=== PATIENT | male | born 1955 | race Caucasian/White ===

== ENCOUNTER 2020-03-02 13:02 | Outpatient (REF) | payer MEDICARE, SELFPAY | END 2020-03-02 13:03 | disposition home or self-care (01) | LOC: HO.LAB 13:02 | PROVIDERS: Visit Provider Physician Assistant | DX: Z20.828 Contact with and (suspected) exposure to other viral communicable diseases (principal) | CPT/HCPCS: 87635 ==

== ENCOUNTER 2020-06-22 14:11 | Outpatient (REF) | payer MEDICARE, SELFPAY ==
--- NOTE | ~2020-06-22 | US_ITS ---
EXAMINATION: US PELVIC, LIMITED/FOLLOWUP CLINICAL INFORMATION: Right lower quadrant/inguinal area pain. COMPARISON: None TECHNIQUE: Limited imaging through the right lower quadrant was performed. FINDINGS: There is a soft tissue hypoechoic area seen medial to the external iliac vessels suspicious of a small hernia. There is a small break in the fascia approximately 1.2 cm wide. US/US pelvic limited IMPRESSION: Suspect small right inguinal hernia with fat within.
== END 2020-06-22 14:12 | disposition home or self-care (01) ==
LOC: HO.US 14:11
PROVIDERS: Visit Provider Nurse Practitioner Family
DX: R19.09 Other intra-abdominal and pelvic swelling, mass and lump (principal)
CPT/HCPCS: 76857

== ENCOUNTER → 2020-07-14 14:54 | Outpatient (BNVA) | payer MEDICARE, SELFPAY | PROVIDERS: PCP Physician Assistant; Visit Provider Surgery | DX: K40.90 Unilateral inguinal hernia, without obstruction or gangrene, not specified as recurrent (principal); I48.21 Permanent atrial fibrillation | CPT/HCPCS: 99202 ==

== ENCOUNTER 2020-07-20 13:03 | Outpatient (REF) | payer MEDICARE, SELFPAY ==
[2020-07-20 14:01] LABS: MANUAL DIFF FLAG NO
[2020-07-20 14:07] LABS: Basophils Percent Auto 0.7 % (0-2); Eosinophils Absolute Auto 0.4 X10*3/uL (0.0-0.4); Eosinophils Percent Auto 6.1 % (0-4); Hematocrit 36.3 % (42-52); Hemoglobin 11.2 g/dl (14.0-18.0); Imm Gran Abs Auto 0.02 X10*3/uL (0.00-0.03); Imm Gran Pct Auto 0.3 % (0.0-0.4); Lymphocytes Absolute Auto 1.1 X10*3/uL (1.2-4.9); Lymphocytes Percent Auto 19.5 % (20-40); Mean Corpuscular HGB Conc 30.9 g/dl (31.0-36.0); Mean Corpuscular Hemoglobin 25.9 pg (27.0-33.0); Mean Platelet Volume 10.1 fL (9.4-12.4); Monocytes Absolute Auto 0.5 X10*3/uL (0.1-1.2); Monocytes Percent Auto 9.1 % (2-11); Neutrophils Absolute Auto 3.7 X10*3/uL (2.0-8.3); Neutrophils Percent Auto 64.3 % (45-73); Platelet Count 201 X10*3/uL (160-400); Red Blood Count 4.32 X10*6/uL (4.60-5.80); Red Cell Distribution Width 13.5 % (11.0-16.0); White Blood Count 5.7 X10*3/uL (4.8-10.8)
[2020-07-20 14:12] LABS: INTERNATIONAL NORM RATIO 2.4 (0.9-1.1); Prothrombin Time 29.3 SEC (10.8-13.0)
[2020-07-20 14:32] LABS: B Type Natriuretic Peptide 879 pg/mL (<100)
[2020-07-20 14:48] LABS: TSH reflex Free T4 0.84 uIU/mL (0.32-4.0)
[2020-07-20 15:15] LABS: Anion Gap 13 (12-20); Blood Urea Nitrogen 15 mg/dL (9-16); Calcium 9.3 mg/dL (8.4-10.2); Carbon Dioxide 31 mmol/L (22-29); Chloride 100 mmol/L (96-108); Estimated Glomerular Filt Rate 48; Glucose Random 82 mg/dL (60-115); Sodium 140 mmol/L (135-145)
== END 2020-07-20 13:04 | disposition home or self-care (01) ==
LOC: HO.LAB 13:03
PROVIDERS: Absent Provider Nurse Practitioner Family; PCP Physician Assistant; Visit Provider Physician Assistant
DX: I48.21 Permanent atrial fibrillation (principal); E03.9 Hypothyroidism, unspecified; R19.09 Other intra-abdominal and pelvic swelling, mass and lump; N18.30 Chronic kidney disease, stage 3 unspecified; Z95.810 Presence of automatic (implantable) cardiac defibrillator
CPT/HCPCS: 36415; 80048; 83880; 84443; 85025; 85610

== ENCOUNTER 2020-07-27 06:03 | Day surgery (SDC) | payer MEDICARE, SELFPAY ==
[2020-07-20 12:00] VITALS: BP 110/67; PULSE 81; RESP 20; O2SAT 97; BMI 24.0
--- NOTE | 2020-07-20 12:05 | P.CONAN_ITS ---
Documented by User: Nat Moore 07/26/20 08:55 HPI - Anesthesia Eval Consult details Narrative: 65yo M for Right Hernia Repair Inguinal Cardiac cleared at high risk. OK to hold coumadin [address]. [address] Henriquez for cardiomems reading if question of volume status perioperatively. Case reviewed with Dr Bri [facility] Active Problems Active Problems: All Active Problems (Updated 07/20/20 @ 11:41 by Sandy Dalal) Exposure to COVID-19 virus (Acute) Afib (Acute) CKD (chronic kidney disease) stage 3, GFR 30-59 ml/min (Acute) ICD (implantable cardioverter-defibrillator) in place (Acute) Hypothyroidism (Acute) MDD (major depressive disorder) (Acute) Hypotension (Acute) Inguinal hernia (Acute) CAD (coronary artery disease) (Acute) Right inguinal hernia (Acute) Groin lump (Acute) Past Medical History Medical History Arrhythmia Back pain CAD (coronary artery disease) CHF (congestive heart failure) Chronic renal insufficiency COPD (chronic obstructive pulmonary disease) Depression GERD (gastroesophageal reflux disease) Groin lump Hx of cardiac arrest Right inguinal hernia Status post insertion of pressure sensor into pulmonary artery Thyroid disease Family History Family History Father Brain cancer Kidney malignancy Mother No problems noted. Sister Ovarian cancer Family history of problems with anesthesia: No Surgical History Surgical History H/O colonoscopy History of cardiac defibrillator placement History of esophagogastroduodenoscopy (EGD) History of radiofrequency ablation procedure for cardiac arrhythmia History of Problems with Anesthesia: No Social History Social History Are you a primary day care home provider to a significant other at home: No Do you presently have visiting nurse or other home services: Yes ([facility] ([facility])) Smoking Status: Never smoker Use of substances other than those prescribed or required for medical reasons: No Have you been hit, kicked, punched, or otherwise hurt by someone within the past year? If so, by whom?: No Advance Directives Information Provided: No Recently lost weight without trying: No Narrative Narrative: No recent illness Denies CP/SOB. Activity limited, but denies symptoms when playing with grandson. Meds Allergies Allergy/AdvReac Type Severity Reaction Status Date / Time No Known Allergies Allergy Verified 07/19/20 09:14 Home Medications Medication Instructions Recorded Confirmed Last Taken Type albuterol sulfate 90 mcg/actuation 1 puff INHALATION QID PRN 03/25/20 07/20/20 Unknown History aerosol inhaler levothyroxine 75 mcg tablet 75 mcg PO DAILY 03/25/20 07/20/20 07/27/20 History lisinopril 2.5 mg tablet 2.5 mg PO DAILY 03/25/20 07/20/20 Unknown History fluticasone propion-salmeterol 2 puff INHALATION BID 07/20/20 07/20/20 Unknown History [Advair HFA] torsemide 1 tab PO BID 07/20/20 07/20/20 Unknown History Exam Exam Date and Time: July 20, 2020 1205 Narrative Narrative: Per cardiology note, nml coronaries on most recent cath . ICD Interrogation 04/2020 [employer] Evera Battery life ok No shocks delivered PA Cardiomems Implant 05/2020 RA 14 RV 58/10 PCWP 25 PA 59/24 EKG 03/2020 Afib with PV or Aberrently conducted complexes LAD Non specific IV conduction block Abnormal EKG When compared with 11/2019 no significant change was found Echo 11/2019 1. LV severely dilated. LV systolic function is severely reduced. LVEF 10-20%. Severe global hypokinesis with regional variation. 2.RV is mildly dilated. RV systolic function is mildly reduced. 3. LA is mildly dilated. RA is dilated. Mild apical tethering of both leaflets of the miltral valve. Mitral valve appears mildly thickened. Mild MR. Compared to 2014 LV appears more dilated and LVEF appears worse. Airway Mallampati Class: II TM Dist: >3cm Neck ROM: Full Loose/Missing/Broken Teeth: Yes (Poor dentition. Many missing. Denies any loose teeth.) Heart: RRR Lungs: CTAB Assessment and Plan Assessment Anesthesia Assessment: Anesthesia Plan Discussed (Discussed high risk, GA vs MAC) Documented by User: Brenna Díaz 07/27/20 08:01 [facility] Past Medical History Medical History Arrhythmia Back pain CAD (coronary artery disease) CHF (congestive heart failure) Chronic renal insufficiency COPD (chronic obstructive pulmonary disease) Depression GERD (gastroesophageal reflux disease) Groin lump Hx of cardiac arrest Right inguinal hernia Status post insertion of pressure sensor into pulmonary artery Thyroid disease Family History Family History Father Brain cancer Kidney malignancy Mother No problems noted. Sister Ovarian cancer Surgical History Surgical History H/O colonoscopy History of cardiac defibrillator placement History of esophagogastroduodenoscopy (EGD) History of radiofrequency ablation procedure for cardiac arrhythmia Social History Social History Are you a primary day care home provider to a significant other at home: No Do you presently have visiting nurse or other home services: Yes ([facility] ([facility])) Smoking Status: Never smoker Use of substances other than those prescribed or required for medical reasons: No Have you been hit, kicked, punched, or otherwise hurt by someone within the past year? If so, by whom?: No Advance Directives Information Provided: No Recently lost weight without trying: No Meds Allergies Allergy/AdvReac Type Severity Reaction Status Date / Time No Known Allergies Allergy Verified 07/19/20 09:14 Home Medications Medication Instructions Recorded Confirmed Last Taken Type albuterol sulfate 90 mcg/actuation 1 puff INHALATION QID PRN 03/25/20 07/20/20 Unknown History aerosol inhaler levothyroxine 75 mcg tablet 75 mcg PO DAILY 03/25/20 07/20/20 07/27/20 History lisinopril 2.5 mg tablet 2.5 mg PO DAILY 03/25/20 07/20/20 Unknown History fluticasone propion-salmeterol 2 puff INHALATION BID 07/20/20 07/20/20 Unknown History [Advair HFA] torsemide 1 tab PO BID 07/20/20 07/20/20 Unknown History Assessment and Plan Assessment Anesthesia Assessment: Anesthesia Plan Discussed and Chart Reviewed Final Anesthetic Review NPO: Yes ASA Class: III Final Preanesthetic Review: No Changes in Pt Med Stat, Meds/Allgs Chart Reviewed, Consent Obtained/Reviewed and Anes Risks/Benef Reviewed Patient Risk: High Procedure Risk: Low Assessment/Block/Sedation in SS: Assess/Block/Sedation-SS Anesthetic Plan Anesthetic Plan: GA Disposition: Standard PACU
[2020-07-27] VITALS (8 sets, daily range): BP systolic 104–124; BP diastolic 58–71; PULSE 78–94; RESP 11–18; TEMP 36.5–36.6; O2SAT 94–99
[2020-07-27] MEDS: Lactated Ringers 1,000 ML 20 ML IVCONT (06:36)
[2020-07-27 06:49] LABS: INTERNATIONAL NORM RATIO 1.3 (0.9-1.1); Prothrombin Time 15.5 SEC (10.8-13.0)
--- NOTE | 2020-07-27 07:23 | MHC.SHP ---
Pre-Procedural Eval Section B Chief Complaint: Right Inguinal hernia Allergies: Allergies Allergy/AdvReac Type Severity Reaction Status Date / Time No Known Allergies Allergy Verified 07/19/20 09:14 Plan I have reviewed the history and physical and performed a pertinent physical examination on my patient. No changes have occurred unless specified.
--- NOTE | 2020-07-27 08:22 | W.PM.OPN ---
Operative Note Operative Note Date of Service: 07/27/20 Narrative: Preop diagnosis: Right inguinal hernia Postop diagnosis: Right inguinal hernia, indirect Procedure: Repair of a right inguinal hernia with mesh and plug Surgeon: Colby Li MD assistant clinical nurse manager: KRISTIN Collins The patient is a 65-year-old male with a reducible mass in the right groin consistent with an inguinal hernia. He wanted to proceed with repair in view of symptoms. He understood the technique of the procedure as well as the risks, benefits, and alternatives. The patient was brought to the operating room and placed supine on the table under general anesthesia via laryngeal mask airway. The right groin was prepped and draped in the usual sterile fashion. A surgical time-out was done. The patient received cefazolin 2 g IV preoperatively. I infiltrated the planned line of incision on the right groin using lidocaine 1%. I made a short incision on the skin using blade # 15. This was carried down to full-thickness skin and subcutaneous fat down to the external oblique aponeurosis. I then defined the external ring. I made a short incision on the external oblique aponeurosis overlying the canal using blade 15 and this was extended inferomedially to connect with external ring. The inguinal canal was therefore entered. I applied hemostats on the edges of the divided external oblique aponeurosis. I bluntly dissected the underside of the aponeurosis to create a pocket for the mesh. I then proceeded to carefully dissect the spermatic cord and its contents using an index finger until I was able to pass a Aaron drain around this. This Aaron drain was used for retraction. I was able to identify the vas deferens and its accompanying vessels. A large sac was noted anteromedially. I dissected the sac off of the rest of the cord contents bluntly down to the internal ring. This was an indirect hernia therefore. I resisted the sac sequentially and applied a clamp across the base at the level of the internal ring. I placed a Dexon 2-0 suture ligature and divided the sac above the clamp. The sac was sent as specimen. I then reinforced this internal ring with a small-sized plug. The plug was secured with Prolene 2-0 sutures to the shelving edge of the inguinal and laterally and the internal oblique superiorly and medially using its inner leaves. I then reinforced the floor of the canal with a keyhole mesh. The tails of the mesh were passed around the cord at the level of the internal ring and were secured together with Prolene 2-0 sutures. The mesh was flattened at the floor of the canal. I secured this as well with Prolene 2-0 suture to the shelving edge of the inguinal ligament laterally, the internal oblique medially and superiorly and the pubic ramus inferomedially. I removed the Aaron drain. I irrigated and observed for hemostasis. I then closed the external oblique aponeurosis with a running Dexon 2-0 stitch to re-create the external ring. The subcutaneous layer was reapposed using Dexon 3-0 interrupted sutures. We made sure that there was good hemostasis prior to closure of the aponeurosis as well. The skin was closed with subcuticular running Dexon 4-0 sutures. The incision was then infiltrated with Marcaine 0.5% for postop analgesia. The procedure was completed. The patient tolerated procedure well with no complications noted. Initial and final counts of sponges and instruments were correct. Estimated blood loss was less than 5 cc. The patient was extubated without difficulty and transferred to the recovery room with stable by signs.
--- NOTE | 2020-07-27 08:29 | P.BOP_ITS ---
Brief Operative Note Date of Service: 07/27/20 Pre-op diagnosis: right inguinal hernia Post-op diagnosis: same (indirect) Procedure: repair of right inguinal hernia with mesh Implants: BARD PERFIX MESH, SMALL Surgeon: SKY NEUMANN MD Anesthesia: JEREMIEA Inspector Repairer: Steph Collins Estimated blood loss (mL): 5 Pathology: other (HERNIA SAC) Condition: stable Disposition: PACU
--- NOTE | 2020-07-27 09:48 | PC.NURSE ---
0940 MORE AWAKE ALERT CONVERSIVE PREP FOR DC MONITORS AND IVF DCD ASST OOB CH LOG ROLLS WELL AND MOVES STEADILIY TO CH, DRESSED SELF CALL DUMONT IN REACH PLAN TO AMB TO DC AREA
== END 2020-07-27 11:05 ==
LOC: HO.SSS 06:03
PROVIDERS: Nurse Practitioner; PCP Physician Assistant; Visit Provider Surgery
PROC: (CPT 49505; principal; 2020-07-27 07:30)
DX: K40.90 Unilateral inguinal hernia, without obstruction or gangrene, not specified as recurrent (principal); I48.21 Permanent atrial fibrillation; Z79.01 Long term (current) use of anticoagulants; I50.9 Heart failure, unspecified; J44.9 Chronic obstructive pulmonary disease, unspecified; K21.9 Gastro-esophageal reflux disease without esophagitis; Z95.810 Presence of automatic (implantable) cardiac defibrillator; Z79.51 Long term (current) use of inhaled steroids; Z79.899 Other long term (current) drug therapy
CPT/HCPCS: 49505; 36415; 85610; 88302; C1781; J0690; J1100; J1885; J2370; J2405; J3010

== ENCOUNTER → 2020-08-09 08:30 | Outpatient (BNVA) | payer MEDICARE, SELFPAY | PROVIDERS: PCP Physician Assistant; Visit Provider Surgery | DX: Z48.815 Encounter for surgical aftercare following surgery on the digestive system (principal); Z87.19 Personal history of other diseases of the digestive system | CPT/HCPCS: 99212 ==

== ENCOUNTER 2021-05-12 16:34 | Outpatient (REF) | payer MEDICARE, SELFPAY ==
[2021-05-12 17:27] LABS: Influenza A PCR NEGATIVE (Negative); Influenza B PCR NEGATIVE (Negative); Resp Syncy Virus RNA Qual PCR NEGATIVE (Negative); SARS COV2 PCR INHOUSE NEGATIVE (Negative)
== END 2021-05-12 16:35 | disposition home or self-care (01) ==
LOC: HO.LNP 16:34
PROVIDERS: Visit Provider Physician Assistant Medical
DX: Z20.822 Contact with and (suspected) exposure to COVID-19 (principal); J06.9 Acute upper respiratory infection, unspecified
CPT/HCPCS: 0241U

== ENCOUNTER 2022-03-06 10:08 | Outpatient (REF) | payer MEDICARE, SELFPAY ==
[2022-03-06 10:27] LABS: MANUAL DIFF FLAG NO
[2022-03-06 11:43] LABS: Basophils Absolute Auto 0.1 X10*3/uL (0.0-0.2); Eosinophils Absolute Auto 0.2 X10*3/uL (0.0-0.4); Eosinophils Percent Auto 2.5 % (0-4); Hematocrit 36.5 % (42.0-52.0); Hemoglobin 10.9 g/dl (14.0-18.0); Imm Gran Abs Auto 0.02 X10*3/uL (0.00-0.03); Imm Gran Pct Auto 0.3 % (0.0-0.4); Lymphocytes Absolute Auto 1.2 X10*3/uL (1.2-4.9); Mean Corpuscular HGB Conc 29.9 g/dl (31.0-36.0); Mean Corpuscular Hemoglobin 24.4 pg (27.0-33.0); Mean Corpuscular Volume 81.8 fL (80.0-98.0); Mean Platelet Volume 10.1 fL (9.4-12.4); Monocytes Absolute Auto 0.6 X10*3/uL (0.1-1.2); Monocytes Percent Auto 8.5 % (2-11); Neutrophils Absolute Auto 4.7 x10*3/uL (2.0-8.3); Neutrophils Percent Auto 69.7 % (45-73); Platelet Count 200 X10*3/uL (160-400); Red Blood Count 4.46 X10*6/uL (4.60-5.80); Red Cell Distribution Width 14.1 % (11.0-16.0); White Blood Count 6.7 X10*3/uL (4.8-10.8)
[2022-03-06 12:25] LABS: Alanine Aminotransferase 7 U/L (0-40); Albumin Level 4.4 g/dL (3.5-5.0); Alkaline Phosphatase 54 U/L (39-117); Anion Gap 16 (12-20); Aspartate Amino Transferase 26 U/L (5-37); Bilirubin Total 0.7 mg/dL (0.0-1.0); Blood Urea Nitrogen 14 mg/dL (9-16); Calcium 9.1 mg/dL (8.4-10.2); Carbon Dioxide 24 mmol/L (22-29); Chloride 101 mmol/L (96-108); Estimated Glomerular Filt Rate > 60; Glucose Random 70 mg/dL (60-115); Potassium 4.1 mmol/L (3.3-5.1); Sodium 137 mmol/L (135-145); Total Protein 7.3 g/dL (6.5-8.0)
[2022-03-08 12:14] LABS: NT-proBNP 2250 pg/mL
== END 2022-03-06 10:09 | disposition home or self-care (01) ==
LOC: HO.LAB 10:08
PROVIDERS: Visit Provider Nurse Practitioner Family
DX: I95.2 Hypotension due to drugs (principal); R42 Dizziness and giddiness; E03.9 Hypothyroidism, unspecified; I48.21 Permanent atrial fibrillation; I11.0 Hypertensive heart disease with heart failure; I50.9 Heart failure, unspecified
CPT/HCPCS: 36415; 80053; 83880; 85025

== ENCOUNTER 2022-09-27 13:00 | Outpatient (RCR) | payer MEDICARE, SELFPAY ==
[2022-09-14 09:10] VITALS: BP 116/60
--- NOTE | 2022-11-08 13:54 | MHC.PT.DC ---
[facility] [place] Office [place] Office [place] Office [address] Marisol Noriega [address] [phone] F: [phone] F: [phone] F: [phone] F: [phone] Physical Therapy Discharge Report Diagnosis: GAIT ABNORMALITY (KP) Date of Surgery: N/A Date of Evaluation: 09/14/22 Date of Discharge: 11/08/22 Treatments to Date: 4 Cancellations to Date: 0 No Shows to Date: 0 Discharge Status: Recommend MD Follow-up Discharge Summary: At last attended visit, note states 09/27 Pt reports an uneasy sensation with activity, head feels light , and he states acid reflex and chest pressure. When questioned pt reports he takes nitro but does not keep it with him. The sensations reported stop with rest. Call placed to primary MD who was not available, Dr BARBOUR's nsg staff recommended going to the ED. Pt was taken to the ED via WC . Pts vitals are as above. HR irregular. Pt has not returned for greater than 30 days and is DCed at this time. Electronically signed by: Estrellita Lares PT DPT Please sign and return to therapist. Thank you for your referral.
== END 2022-11-08 13:54 | disposition home or self-care (01) ==
LOC: HO.PT 13:00
PROVIDERS: PCP Internal Medicine; Visit Provider Nurse Practitioner Family
DX: R26.89 Other abnormalities of gait and mobility (principal); W19.XXXD Unspecified fall, subsequent encounter
CPT/HCPCS: 97110; 97162

== ENCOUNTER 2022-09-27 13:53 | Emergency (ER) | payer MEDICARE, SELFPAY ==
--- NOTE | ~2022-09-27 | CT_ITS ---
EXAMINATION: CT HEAD WITHOUT CONTRAST CLINICAL INFORMATION: Known subdural hematoma COMPARISON: None available. TECHNIQUE: Contiguous axial imaging was performed from the skull base to vertex without intravenous administration of contrast. This CT examination was performed using dose optimization techniques as appropriate, variously including the following: *Automated exposure control *Adjustment of mA and/or kV according to patient size (this includes techniques or standardized protocols for targeted exams where dose is matched to indication/reason for exam; i.e. extremities or head) *Use of iterative reconstruction technique DLP: 809 mGy-cm FINDINGS: There is no evidence of an extra-axial collection. There is no evidence of intra or extra-axial hemorrhage. The ventricles and extra-axial CSF spaces are prominent suggestive of mild generalized atrophy. There is nonspecific periventricular white matter disease. No mass, mass effect or infarct is seen. No skull fracture. Poor dentition and multiple periapical lucencies are questionable for dental caries/infection. Degenerative changes at the temporomandibular joints. CT/CT head/brain wo IV con IMPRESSION: No acute intracranial findings. Mild generalized atrophy and nonspecific periventricular white matter disease. No subdural hematoma or fluid collection seen.
[2022-09-27 14:18] VITALS: BP 126/70; PULSE 113; RESP 18; TEMP 36.2; O2SAT 100; BMI 22.2
--- NOTE | 2022-09-27 14:18 | ED_ITS ---
HPI - Dizziness General Chief Complaint: Arrhythmia/Palpitations Stated Complaint: heart irregularity Time Seen by Provider: 09/27/22 15:24 Related Data Home Medications Medication Instructions Recorded Confirmed albuterol sulfate 90 mcg/actuation 1 puff inhalation QID PRN wheezing 03/25/20 08/21/22 aerosol inhaler lisinopril 2.5 mg tablet 2.5 mg PO DAILY 03/25/20 08/21/22 fluticasone propionate 230 2 puff inhalation BID 07/20/20 08/21/22 mcg-salmeterol 21 mcg/actuation HFA inhaler (Advair HFA) torsemide 20 mg tablet 1 tab PO BID 07/20/20 08/21/22 carvedilol 25 mg tablet 12.5 mg PO BID 03/06/22 08/21/22 Previous Rx's Medication Instructions Recorded warfarin 2.5 mg tablet 5 mg PO DAILY 90 days #180 tabs 05/12/22 levothyroxine 75 mcg tablet 75 mcg PO DAILY 90 days #90 tabs 06/24/22 fluoxetine 20 mg capsule 20 mg PO DAILY #90 caps 09/20/22 Allergies Allergy/AdvReac Type Severity Reaction Status Date / Time No Known Allergies Allergy Verified 09/27/22 14:21 [facility] Past Medical History Medical History (Updated 09/27/22 @ 17:57 by Hugh Yao MD) Arrhythmia Back pain CAD (coronary artery disease) Cervicogenic headache CHF (congestive heart failure) Chronic renal insufficiency COPD (chronic obstructive pulmonary disease) Depression GERD (gastroesophageal reflux disease) Groin lump Hx of cardiac arrest Poor balance Right inguinal hernia Status post insertion of pressure sensor into pulmonary artery Subdural fluid collection Thyroid disease Surgical History H/O colonoscopy History of cardiac defibrillator placement History of esophagogastroduodenoscopy (EGD) History of radiofrequency ablation procedure for cardiac arrhythmia Family History Family History (Updated 08/21/22 @ 08:06 by Xena Martel CMA) Father Brain cancer Kidney malignancy Mother No problems noted. Sister Ovarian cancer Social History Social History Housing: House Are you a primary insurance healthcare consultant to a significant other at home: No Do you presently have visiting nurse or other home services: Yes ([facility] Alcohol intake: never Patient Tobacco Use Status: Never used Tobacco Smoked in Last 30 Days: No e-Cigarette/Vaping Use: Never Used Use of substances other than those prescribed or required for medical reasons: No Advance Directives: Yes Advance Directives Information Provided: No Advance Directives on File: No Current occupational status: retired Cognitive needs: No Hearing needs: No Vision needs: Yes Physical Exam Vital Signs: Vital Signs: Last Vital Signs Temp 97.2 F 09/27/22 14:18 Pulse 116 H 09/27/22 16:04 Resp 18 09/27/22 14:18 BP 106/74 09/27/22 16:04 Pulse Ox 100 09/27/22 14:18 O2 Del Method Room Air 09/27/22 14:18 BMI result Body Mass Index 22.2 Course Course Course Narrative: Patient is a 67 yo male with a PMH of afib (on Coumadin), CKD, CHF, vertigo, CAD presenting with dizziness at rehab and found to have irregular heart rates from 60s to 110s. He had had no chest pain and reports his dizziness has been going on for months. HR 110s in triage, irregularly irregular. BP stable. He states he took all of his meds this morning. Plan: EKG, orthostatic VS, lab workup Reevaluation(s) Reevaluation #1: See Dr. Yao's note for full evaluation and treatment. Medications Administered Discontinued Medications Generic Name Dose Route Start Last Admin Trade Name Freq PRN Reason Stop Dose Admin Carvedilol 12.5 mg 09/27/22 15:32 09/27/22 15:38 Carvedilol 12.5 Mg Tablet PO 09/27/22 15:33 12.5 mg ONCE ONE Administration Protocol Medical Decision Making Lab Data 09/27/22 14:33 09/27/22 14:33 Labs: Lab Results 09/27/22 09/27/22 09/27/22 Range/Units 14:33 14:33 14:33 WBC 6.5 (4.8-10.8) X10*3/uL RBC 4.10 L (4.60-5.80) X10*6/uL Hgb 9.4 L (14.0-18.0) g/dl Hct 32.6 L (42.0-52.0) % MCV 79.5 L (80.0-98.0) fL MCH 22.9 L (27.0-33.0) pg MCHC 28.8 L (31.0-36.0) g/dl RDW 15.3 (11.0-16.0) % Plt Count 172 (160-400) X10*3/uL MPV 10.0 (9.4-12.4) fL Immature Gran % (Auto) 0.3 (0.0-0.4) % Neut % (Auto) 75.9 H (45-73) % Lymph % (Auto) 15.5 L (20-40) % [place] % (Auto) 6.0 (2-11) % Eos % (Auto) 1.5 (0-4) % Baso % (Auto) 0.8 (0-2) % Lymph # (Auto) 1.0 L (1.2-4.9) X10*3/uL [place] # (Auto) 0.4 (0.1-1.2) X10*3/uL Eos # (Auto) 0.1 (0.0-0.4) X10*3/uL Baso # (Auto) 0.1 (0.0-0.2) X10*3/uL Abs Immat Gran (auto) 0.02 (0.00-0.03) X10*3/uL Absolute Neuts (auto) 4.9 (2.0-8.3) x10*3/uL Absolute Nucleated RBC 0.000 (0.0-0.012) X10*3/uL Nucleated RBC % (auto) 0.0 (0.0-0.2) /100WBC PT (10.0-13.1) SEC INR (0.9-1.1) APTT (26.0-36.4) SEC Sodium 138 (135-145) mmol/L Potassium 4.5 (3.3-5.1) mmol/L Chloride 104 (96-108) mmol/L Carbon Dioxide 27 (22-29) mmol/L Anion Gap 12 (12-20) BUN 15 (9-16) mg/dL Creatinine 1.14 (0.5-1.4) mg/dL Estim Creat Clear Calc 64.2 Estimated GFR > 60 Random Glucose 79 (60-115) mg/dL Calcium 9.1 (8.4-10.2) mg/dL Magnesium 1.7 (1.6-2.6) mg/dL Total Bilirubin 1.0 (0.0-1.0) mg/dL Direct Bilirubin 0.3 (0.0-0.5) mg/dL AST 32 (5-37) U/L ALT 14 (0-40) U/L Alkaline Phosphatase 60 (39-117) U/L Troponin I High Sens 15.3 (<3.5-35.0) ng/L Total Protein 6.8 (6.5-8.0) g/dL Albumin 4.1 (3.5-5.0) g/dL TSH (0.32-4.0) uIU/mL Free T4 (0.71-1.85) ng/dL 09/27/22 09/27/22 Range/Units 15:38 15:38 WBC (4.8-10.8) X10*3/uL RBC (4.60-5.80) X10*6/uL Hgb (14.0-18.0) g/dl Hct (42.0-52.0) % MCV (80.0-98.0) fL MCH (27.0-33.0) pg MCHC (31.0-36.0) g/dl RDW (11.0-16.0) % Plt Count (160-400) X10*3/uL MPV (9.4-12.4) fL Immature Gran % (Auto) (0.0-0.4) % Neut % (Auto) (45-73) % Lymph % (Auto) (20-40) % [place] % (Auto) (2-11) % Eos % (Auto) (0-4) % Baso % (Auto) (0-2) % Lymph # (Auto) (1.2-4.9) X10*3/uL [place] # (Auto) (0.1-1.2) X10*3/uL Eos # (Auto) (0.0-0.4) X10*3/uL Baso # (Auto) (0.0-0.2) X10*3/uL Abs Immat Gran (auto) (0.00-0.03) X10*3/uL Absolute Neuts (auto) (2.0-8.3) x10*3/uL Absolute Nucleated RBC (0.0-0.012) X10*3/uL Nucleated RBC % (auto) (0.0-0.2) /100WBC PT 30.6 H (10.0-13.1) SEC INR 2.6 H (0.9-1.1) APTT 42.5 H (26.0-36.4) SEC Sodium (135-145) mmol/L Potassium (3.3-5.1) mmol/L Chloride (96-108) mmol/L Carbon Dioxide (22-29) mmol/L Anion Gap (12-20) BUN (9-16) mg/dL Creatinine (0.5-1.4) mg/dL Estim Creat Clear Calc Estimated GFR Random Glucose (60-115) mg/dL Calcium (8.4-10.2) mg/dL Magnesium (1.6-2.6) mg/dL Total Bilirubin (0.0-1.0) mg/dL Direct Bilirubin (0.0-0.5) mg/dL AST (5-37) U/L ALT (0-40) U/L Alkaline Phosphatase (39-117) U/L Troponin I High Sens (<3.5-35.0) ng/L Total Protein (6.5-8.0) g/dL Albumin (3.5-5.0) g/dL TSH 5.68 H (0.32-4.0) uIU/mL Free T4 0.95 (0.71-1.85) ng/dL Discharge Plan Discharge Clinical Impression: Atrial fibrillation Patient Disposition: Home, Self-Care Instructions: A-fib (Atrial Fibrillation) (ED) Additional Instructions: Your workup in the emergency department was reassuring. Your heart rate was elevated secondary to atrial fibrillation which you have had chronically. We treated you with an extra dose of carvedilol which helped the heart rate. At home, take 2 tablets of carvedilol in the morning and 1 in the evening. You are safe to go back to physical therapy for in next session. Follow-up with your PCP or newspaper subscription solicitor for further recommendations Prescriptions: No Action warfarin 2.5 mg tablet 5 mg PO DAILY 90 Days Qty: 180 1RF Hold Instructions: Resume on 07/28/20. Rx Instructions: Patient taking 5 mg daily levothyroxine 75 mcg tablet 75 mcg PO DAILY 90 Days Qty: 90 1RF fluoxetine 20 mg capsule 20 mg PO DAILY Qty: 90 0RF torsemide 20 mg tablet 1 tab PO BID Advair HFA 230-21 mcg/actuation Hfa Aerosol Inhaler 2 puff INHALATION BID lisinopril 2.5 mg tablet 2.5 mg PO DAILY albuterol sulfate 90 mcg/actuation HFA aerosol inhaler 1 puff inhalation QID PRN (Reason: wheezing) carvedilol 25 mg tablet 12.5 mg PO BID
--- NOTE | 2022-09-27 14:27 | ECG_ITS ---
Test Reason : ARRYTHMIA Blood Pressure : / mmHG Vent. Rate : 106 BPM Atrial Rate : 000 BPM P-R Int : 000 ms QRS Dur : 148 ms QT Int : 356 ms P-R-T Axes : 000 -50 052 degrees QTc Int : 472 ms Atrial fibrillation with rapid ventricular response with premature ventricular or aberrantly conducted complexes Left axis deviation Non-specific intra-ventricular conduction block Minimal voltage criteria for LVH, may be normal variant ( [place] product ) Abnormal ECG No previous ECGs available Referred By: Prabha Buckley Electronically Signed By:Jose Coffey
[2022-09-27 14:52] LABS: MANUAL DIFF FLAG NO
[2022-09-27 14:54] LABS: Basophils Absolute Auto 0.1 X10*3/uL (0.0-0.2); Basophils Percent Auto 0.8 % (0-2); Eosinophils Absolute Auto 0.1 X10*3/uL (0.0-0.4); Eosinophils Percent Auto 1.5 % (0-4); Hematocrit 32.6 % (42.0-52.0); Hemoglobin 9.4 g/dl (14.0-18.0); Imm Gran Abs Auto 0.02 X10*3/uL (0.00-0.03); Imm Gran Pct Auto 0.3 % (0.0-0.4); Lymphocytes Percent Auto 15.5 % (20-40); Mean Corpuscular HGB Conc 28.8 g/dl (31.0-36.0); Mean Corpuscular Hemoglobin 22.9 pg (27.0-33.0); Mean Corpuscular Volume 79.5 fL (80.0-98.0); Monocytes Absolute Auto 0.4 X10*3/uL (0.1-1.2); Neutrophils Absolute Auto 4.9 x10*3/uL (2.0-8.3); Neutrophils Percent Auto 75.9 % (45-73); Platelet Count 172 X10*3/uL (160-400); Red Cell Distribution Width 15.3 % (11.0-16.0); White Blood Count 6.5 X10*3/uL (4.8-10.8)
[2022-09-27 15:11] LABS: Alanine Aminotransferase 14 U/L (0-40); Albumin Level 4.1 g/dL (3.5-5.0); Alkaline Phosphatase 60 U/L (39-117); Anion Gap 12 (12-20); Aspartate Amino Transferase 32 U/L (5-37); Bilirubin Direct 0.3 mg/dL (0.0-0.5); Blood Urea Nitrogen 15 mg/dL (9-16); Calcium 9.1 mg/dL (8.4-10.2); Carbon Dioxide 27 mmol/L (22-29); Chloride 104 mmol/L (96-108); Creatinine Clr Calc Pharmacy 64.2; Estimated Glomerular Filt Rate > 60; Glucose Random 79 mg/dL (60-115); Magnesium 1.7 mg/dL (1.6-2.6); Potassium 4.5 mmol/L (3.3-5.1); Sodium 138 mmol/L (135-145); Total Protein 6.8 g/dL (6.5-8.0)
[2022-09-27 15:20] LABS: Troponin-I High Sensitivity 15.3 ng/L (<3.5-35.0)
--- NOTE | 2022-09-27 15:33 | ED.GENADULT ---
HPI - General Adult General Chief complaint: Arrhythmia/Palpitations Stated complaint: heart irregularity Time Seen by Provider: 09/27/22 15:24 Source: patient History of Present Illness HPI narrative: Patient states he has been feeling dizzy since he fell and hit his head last month and suffered a subdural hematoma. He has been followed at [facility] for this. Today went to physical therapy and they found him to be tachycardic with an irregular rhythm. He has a history of atrial fibrillation for which he takes warfarin and carvedilol. He denies palpitations or dyspnea. He states he has feels dizzy which he describes as off balance sensation. He needs to hold onto things when he walks now. He lives at home with his typically. His has been hospitalized for the last few days. Related Data Home Medications Medication Instructions Recorded Confirmed albuterol sulfate 90 mcg/actuation 1 puff inhalation QID PRN wheezing 03/25/20 08/21/22 aerosol inhaler lisinopril 2.5 mg tablet 2.5 mg PO DAILY 03/25/20 08/21/22 fluticasone propionate 230 2 puff inhalation BID 07/20/20 08/21/22 mcg-salmeterol 21 mcg/actuation HFA inhaler (Advair HFA) torsemide 20 mg tablet 1 tab PO BID 07/20/20 08/21/22 carvedilol 25 mg tablet 12.5 mg PO BID 03/06/22 08/21/22 Previous Rx's Medication Instructions Recorded warfarin 2.5 mg tablet 5 mg PO DAILY 90 days #180 tabs 05/12/22 levothyroxine 75 mcg tablet 75 mcg PO DAILY 90 days #90 tabs 06/24/22 fluoxetine 20 mg capsule 20 mg PO DAILY #90 caps 09/20/22 Allergies Allergy/AdvReac Type Severity Reaction Status Date / Time No Known Allergies Allergy Verified 09/27/22 14:21 Review of Systems Constitutional: Comments: No fevers or chills Eyes: Comments: No new vision changes Cardiovascular: Comments: No chest pain or palpitations Respiratory: Comments: No dyspnea or cough Gastrointestinal: Comments: No nausea vomiting Musculoskeletal: Comments: No musculoskeletal complaints Neurologic: Comments: Dizziness as described PMF Past Medical History Medical History (Updated 09/27/22 @ 17:57 by Hugh Yao MD) Arrhythmia Back pain CAD (coronary artery disease) Cervicogenic headache CHF (congestive heart failure) Chronic renal insufficiency COPD (chronic obstructive pulmonary disease) Depression GERD (gastroesophageal reflux disease) Groin lump Hx of cardiac arrest Poor balance Right inguinal hernia Status post insertion of pressure sensor into pulmonary artery Subdural fluid collection Thyroid disease Surgical History H/O colonoscopy History of cardiac defibrillator placement History of esophagogastroduodenoscopy (EGD) History of radiofrequency ablation procedure for cardiac arrhythmia Family History Family History (Updated 08/21/22 @ 08:06 by Xena Martel CMA) Father Brain cancer Kidney malignancy Mother No problems noted. Sister Ovarian cancer Social History Social History Housing: House Are you a primary childbirth and infant care teacher to a significant other at home: No Do you presently have visiting nurse or other home services: Yes ([facility] ([facility] Alcohol intake: never Patient Tobacco Use Status: Never used Tobacco Smoked in Last 30 Days: No e-Cigarette/Vaping Use: Never Used Use of substances other than those prescribed or required for medical reasons: No Advance Directives: Yes Advance Directives Information Provided: No Advance Directives on File: No Current occupational status: retired Cognitive needs: No Hearing needs: No Vision needs: Yes Physical Exam ED Vital Signs: Vital Signs - 24 hr 09/27/22 14:18 09/27/22 16:03 09/27/22 16:03 Temperature 97.2 F Pulse Rate 113 H 100 105 H Respiratory Rate 18 Blood Pressure 126/70 106/41 L 105/76 Pulse Oximetry 100 Oxygen Delivery Method Room Air 09/27/22 16:04 Temperature Pulse Rate 116 H Respiratory Rate Blood Pressure 106/74 Pulse Oximetry Oxygen Delivery Method BMI result Body Mass Index 22.2 Const Other: Awake and alert. No acute distress. HENMT Other: Normocephalic atraumatic Resp Other: Clear and equal bilaterally without wheezes rales or rhonchi Cardio Other: Irregularly irregular at approximately 110 beats per minute GI Other: Soft nontender nondistended Skin Other: Warm pink and dry without rash or ecchymosis Neuro Other: Nonfocal Medications Administered Discontinued Medications Generic Name Dose Route Start Last Admin Trade Name Freq PRN Reason Stop Dose Admin Carvedilol 12.5 mg 09/27/22 15:32 09/27/22 15:38 Carvedilol 12.5 Mg Tablet PO 09/27/22 15:33 12.5 mg ONCE ONE Administration Protocol Medical Decision Making Medical Decision Making [facility] Narrative: Patient with recent dizziness although attributed to recent subdural hematoma. His a history of atrial fibrillation and thinks he is typically in that rhythm and not normal sinus rhythm. He was found to be moderately tachycardic when he went for physical therapy for his 1st appointment today so they sent to the emergency department. Given the above symptoms and findings, will repeat CT head to assess for potential expansion or recurrence of his subdural hematoma. Will treat with carvedilol for rate control. He is otherwise stable. Await INR and other labs. 17:54. CBC shows mild anemia without significant change from prior values. Chemistries are normal. Troponin is 15.3. TSH is 5.68 but his free T4 is normal range of 0.95. His atrial fibrillation is now at a rate in the 90s. His INR is in the therapeutic range at 2.6. Patient is comfortable. He is stable for discharge home with a final diagnosis of dizziness likely secondary to atrial fibrillation with RVR. Now controlled Lab Data 09/27/22 14:33 09/27/22 14:33 Labs: Lab Results 09/27/22 09/27/22 09/27/22 Range/Units 14:33 14:33 14:33 WBC 6.5 (4.8-10.8) X10*3/uL RBC 4.10 L (4.60-5.80) X10*6/uL Hgb 9.4 L (14.0-18.0) g/dl Hct 32.6 L (42.0-52.0) % MCV 79.5 L (80.0-98.0) fL MCH 22.9 L (27.0-33.0) pg MCHC 28.8 L (31.0-36.0) g/dl RDW 15.3 (11.0-16.0) % Plt Count 172 (160-400) X10*3/uL MPV 10.0 (9.4-12.4) fL Immature Gran % (Auto) 0.3 (0.0-0.4) % Neut % (Auto) 75.9 H (45-73) % Lymph % (Auto) 15.5 L (20-40) % [place] % (Auto) 6.0 (2-11) % Eos % (Auto) 1.5 (0-4) % Baso % (Auto) 0.8 (0-2) % Lymph # (Auto) 1.0 L (1.2-4.9) X10*3/uL [place] # (Auto) 0.4 (0.1-1.2) X10*3/uL Eos # (Auto) 0.1 (0.0-0.4) X10*3/uL Baso # (Auto) 0.1 (0.0-0.2) X10*3/uL Abs Immat Gran (auto) 0.02 (0.00-0.03) X10*3/uL Absolute Neuts (auto) 4.9 (2.0-8.3) x10*3/uL Absolute Nucleated RBC 0.000 (0.0-0.012) X10*3/uL Nucleated RBC % (auto) 0.0 (0.0-0.2) /100WBC PT (10.0-13.1) SEC INR (0.9-1.1) APTT (26.0-36.4) SEC Sodium 138 (135-145) mmol/L Potassium 4.5 (3.3-5.1) mmol/L Chloride 104 (96-108) mmol/L Carbon Dioxide 27 (22-29) mmol/L Anion Gap 12 (12-20) BUN 15 (9-16) mg/dL Creatinine 1.14 (0.5-1.4) mg/dL Estim Creat Clear Calc 64.2 Estimated GFR > 60 Random Glucose 79 (60-115) mg/dL Calcium 9.1 (8.4-10.2) mg/dL Magnesium 1.7 (1.6-2.6) mg/dL Total Bilirubin 1.0 (0.0-1.0) mg/dL Direct Bilirubin 0.3 (0.0-0.5) mg/dL AST 32 (5-37) U/L ALT 14 (0-40) U/L Alkaline Phosphatase 60 (39-117) U/L Troponin I High Sens 15.3 (<3.5-35.0) ng/L Total Protein 6.8 (6.5-8.0) g/dL Albumin 4.1 (3.5-5.0) g/dL TSH (0.32-4.0) uIU/mL Free T4 (0.71-1.85) ng/dL 09/27/22 09/27/22 Range/Units 15:38 15:38 WBC (4.8-10.8) X10*3/uL RBC (4.60-5.80) X10*6/uL Hgb (14.0-18.0) g/dl Hct (42.0-52.0) % MCV (80.0-98.0) fL MCH (27.0-33.0) pg MCHC (31.0-36.0) g/dl RDW (11.0-16.0) % Plt Count (160-400) X10*3/uL MPV (9.4-12.4) fL Immature Gran % (Auto) (0.0-0.4) % Neut % (Auto) (45-73) % Lymph % (Auto) (20-40) % [place] % (Auto) (2-11) % Eos % (Auto) (0-4) % Baso % (Auto) (0-2) % Lymph # (Auto) (1.2-4.9) X10*3/uL [place] # (Auto) (0.1-1.2) X10*3/uL Eos # (Auto) (0.0-0.4) X10*3/uL Baso # (Auto) (0.0-0.2) X10*3/uL Abs Immat Gran (auto) (0.00-0.03) X10*3/uL Absolute Neuts (auto) (2.0-8.3) x10*3/uL Absolute Nucleated RBC (0.0-0.012) X10*3/uL Nucleated RBC % (auto) (0.0-0.2) /100WBC PT 30.6 H (10.0-13.1) SEC INR 2.6 H (0.9-1.1) APTT 42.5 H (26.0-36.4) SEC Sodium (135-145) mmol/L Potassium (3.3-5.1) mmol/L Chloride (96-108) mmol/L Carbon Dioxide (22-29) mmol/L Anion Gap (12-20) BUN (9-16) mg/dL Creatinine (0.5-1.4) mg/dL Estim Creat Clear Calc Estimated GFR Random Glucose (60-115) mg/dL Calcium (8.4-10.2) mg/dL Magnesium (1.6-2.6) mg/dL Total Bilirubin (0.0-1.0) mg/dL Direct Bilirubin (0.0-0.5) mg/dL AST (5-37) U/L ALT (0-40) U/L Alkaline Phosphatase (39-117) U/L Troponin I High Sens (<3.5-35.0) ng/L Total Protein (6.5-8.0) g/dL Albumin (3.5-5.0) g/dL TSH 5.68 H (0.32-4.0) uIU/mL Free T4 0.95 (0.71-1.85) ng/dL Discharge Plan Discharge Clinical Impression: Atrial fibrillation Patient Disposition: Home, Self-Care Instructions: A-fib (Atrial Fibrillation) (ED) Additional Instructions: Your workup in the emergency department was reassuring. Your heart rate was elevated secondary to atrial fibrillation which you have had chronically. We treated you with an extra dose of carvedilol which helped the heart rate. At home, take 2 tablets of carvedilol in the morning and 1 in the evening. You are safe to go back to physical therapy for in next session. Follow-up with your PCP or toolman for further recommendations Prescriptions: No Action warfarin 2.5 mg tablet 5 mg PO DAILY 90 Days Qty: 180 1RF Hold Instructions: Resume on 07/28/20. Rx Instructions: Patient taking 5 mg daily levothyroxine 75 mcg tablet 75 mcg PO DAILY 90 Days Qty: 90 1RF fluoxetine 20 mg capsule 20 mg PO DAILY Qty: 90 0RF torsemide 20 mg tablet 1 tab PO BID Advair HFA 230-21 mcg/actuation Hfa Aerosol Inhaler 2 puff INHALATION BID lisinopril 2.5 mg tablet 2.5 mg PO DAILY albuterol sulfate 90 mcg/actuation HFA aerosol inhaler 1 puff inhalation QID PRN (Reason: wheezing) carvedilol 25 mg tablet 12.5 mg PO BID
[2022-09-27] MEDS: carvediloL 12.5 MG TABLET PO (15:38)
[2022-09-27 16:03] VITALS: BP 105/76; BP 106/41; PULSE 100; PULSE 105
[2022-09-27 16:04] VITALS: BP 106/74; PULSE 116
[2022-09-27 16:04] LABS: INTERNATIONAL NORM RATIO 2.6 (0.9-1.1); Prothrombin Time 30.6 SEC (10.0-13.1)
[2022-09-27 16:07] LABS: Partial Thromboplastin Time 42.5 SEC (26.0-36.4)
[2022-09-27 16:53] LABS: TSH reflex Free T4 5.68 uIU/mL (0.32-4.0)
--- NOTE | 2022-09-27 17:35 | PC.NURSE ---
pt prompted to provide urine sample
[2022-09-27 17:39] LABS: Free T4 (Free Thyroxine) 0.95 ng/dL (0.71-1.85)
== END 2022-09-27 18:19 | disposition home or self-care (01) ==
PROVIDERS: Physician Assistant; Emergency Provider Emergency Medicine; PCP Internal Medicine
DX: I49.9 Cardiac arrhythmia, unspecified (principal); I48.91 Unspecified atrial fibrillation; R42 Dizziness and giddiness; I25.10 Atherosclerotic heart disease of native coronary artery without angina pectoris; R00.0 Tachycardia, unspecified; Z79.899 Other long term (current) drug therapy
CPT/HCPCS: 36415; 70450; 80048; 80076; 83735; 84439; 84443; 84484; 85025; 85610; 85730; 93005; 99284

== ENCOUNTER → 2022-10-24 14:13 | Outpatient (BNVA) | payer MEDICARE, SELFPAY | PROVIDERS: PCP Internal Medicine; Visit Provider Psychiatry & Neurology Neurology | DX: G44.86 Cervicogenic headache (principal); G24.8 Other dystonia; R42 Dizziness and giddiness | CPT/HCPCS: 99202 ==

== ENCOUNTER 2022-11-17 10:19 | Outpatient (RCR) | payer MEDICARE, SELFPAY ==
[2022-11-17 11:03] VITALS: BP 131/64; PULSE 62
--- NOTE | 2022-11-17 13:20 | MHC.PT.EP ---
[facility] [place] Office [place] Office [place] Office [address] Marisol Noriega [address] [phone] F: [phone] F: [phone] F: [phone] F: [phone] Physical Therapy Plan of Care Date of Evaluation: Date of Surgery: Diagnosis: Cervigogenic headache, antecollis, other dystonia Assessment: Jose is a 67 yo male referred to PT for Cervicogenic headache, antecollis, other dystonia . Pt c/o dizziness with positional changes and rolling in bed, therefore session primarily focused on BPPV assessment. Assessed cervical/shoulder ROM/strength and tested pt for BPPV. He presented with intact saccades, smooth pursuit, visual tracking, negative head thrust and negative VBI. He was negative for BPPV in B sam pikes and B roll test. On cervical and shoulder exam he presented with impairments which include poor seated/standing posture, decreased neck ROM, severe limitation in cervical extension, weak mid/lower traps, thoracic kyphosis, impaired shoulder, and impaired shoulder strength. Functional limitations include dizziness with changing positions, dizziness rolling in bed and PETER. PT to address aforementioned impairments and functional limitations. PT to include pt postural education, scapular retractions, neck ROM exercises, shoulder strengthening, thoracic mobility, pt education, and HEP. Frequency and Duration: The patient will be seen 2x week for 4 weeks Short Term Goals: In 2 weeks... 1. Pt will become I with all HEP to assist in improving overall posture. 2. Pt will not have any dizziness with rolling, and supine <> sit (no BPPV and no cervicogenic dizziness) Senior Compensation Consultant Goals: In 4 weeks... 1. Pt will increase cervical extension by 50% to decrease cervical tissue tension and PETER Treatment Plan: Modalities to reduce pain, spasms and effusion. Manual therapy to restore motion and function. Therapeutic exercise to improve strength and flexibility. Neuromuscular re-education for posture and balance. Therapeutic activities to return to functional activities of daily living. Electronically signed by: Tricia Johnson PT DPT Please sign and return to therapist. Thank you for your referral.
--- NOTE | 2022-11-20 13:28 | MHC.PT.DC ---
[facility] [place] Office [place] Office [place] Office [address] Marisol Noriega [address] [phone] F: [phone] F: [phone] F: [phone] F: [phone] Physical Therapy Discharge Report Diagnosis: Cervigogenic headache, antecollis, other dystonia Date of Surgery: NA Date of Evaluation: 11/17/22 Date of Discharge: 11/20/22 Treatments to Date: 1 Cancellations to Date: No Shows to Date: Discharge Status: Patient Elected to Stop Discharge Summary: Jose called and d/c himself from PT after his evaluation. He did not provide any reason for d/c/ Electronically signed by: Tricia Johnson, PT DPT Please sign and return to therapist. Thank you for your referral.
== END 2022-11-20 13:28 | disposition home or self-care (01) ==
LOC: HO.PT 10:19
PROVIDERS: PCP Internal Medicine; Visit Provider Psychiatry & Neurology Neurology
DX: G44.86 Cervicogenic headache (principal); G24.8 Other dystonia
CPT/HCPCS: 97110; 97161; 97162

== ENCOUNTER 2023-02-06 10:25 | Outpatient (AMB) | payer MEDICARE, SELFPAY ==
--- NOTE | 2023-02-06 10:29 | MHC.OFFVIS ---
Intake Vital Signs 02/06/23 10:32 Weight 161 lb BP 118/64 Blood Pressure Location Rt brachial Position Sitting Pulse 82 Pulse Source Pulse Oximeter Pulse Oximetry (%) 99 Oxygen Delivery Method Room Air Intake Visit Reasons: 3m follow up Cervicogenic headache-lvm Intake Note: Pt presents today for fup headaches, states headaches are QOD Allergies No Known Allergies Allergy (Verified 02/06/23 10:35) Medication List - Last Reconciled 02/06/23 by Sidra Ramirez MD albuterol sulfate 90 mcg/actuation 1 puff inhalation QID PRN carvedilol 12.5 mg PO BID dapagliflozin propanediol (Farxiga) 10 mg PO DAILY fluoxetine 20 mg PO DAILY fluticasone propion-salmeterol 230-21 mcg/actuation (Advair HFA) 2 puffs inhalation BID levothyroxine 75 mcg PO DAILY 90 days lisinopril 2.5 mg PO DAILY meclizine 25 mg PO DAILY PRN 30 days metoprolol succinate ER 25 mg PO DAILY torsemide 1 tab PO BID warfarin 5 mg (2 x 2.5 mg) PO DAILY 90 days HPI HPI Comments History of Present Illness Details 67y/o male comes for follow up of vertigo, headaches and neck pain. He did vestibular therapy, PT for neck . He is not clear if it helped.The headaches are mild and mostly occipital and frontal. He does not take any medications for his headaches. He still ahs vertigo when he stands up from a sitting position . He bumped his head when he fell about few months ago and he startes having neck pain and headaches. [facility] Medical History Antecollis Poor balance Subdural fluid collection Cervicogenic headache 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 Sister Ovarian cancer Social History Household Members: Spouse Housing: Apartment Are you a primary day care worker to a significant other at home: No Do you presently have visiting nurse or other home services: Yes ([facility] ([facility])) Alcohol intake: never Patient Tobacco Use Status: Never used Tobacco e-Cigarette/Vaping Use: Never Used service: No Current occupational status: retired Cognitive needs: No Hearing needs: No Vision needs: No Review of Systems ENT Reports Normal hearing present Neuro Reports Normal hearing present Physical Exam Vital Signs: Last Vital Signs Pulse 82 02/06/23 10:32 BP 118/64 02/06/23 10:32 Pulse Ox 99 02/06/23 10:32 Oxygen Delivery Method Room Air 02/06/23 10:32 Const General: cooperative and comfortable Nutritional Appearance: average body habitus Orientation/consciousness: patient oriented x3 Eyes Pupils: Equal, round and reactive pupils present Neck Other: severe antecollis Neuro General: patient oriented x3, No gait normal, tone normal, moves all extremities and no focal motor deficits Cranial nerves: Yes CN's II-XII intact bilaterally, Yes Equal, round and reactive pupils present, Yes Bilaterally intact EOM present, Yes Nystagmus not present, Yes Normal facial strength present, Yes Midline tongue present and Yes Normal hearing present Cognition (Neuro): normal cognition Gait exam (Neuro): Other gait observations present (stooped small steps ) Motor exam (neuro): 5/5 motor strength present throughout and Normal motor muscle tone present throughout Coordination: [id number] test normal Assessment & Plan Assessment & Plan (1) Antecollis: Code(s): G24.8 - Other dystonia (2) Cervicogenic headache: Code(s): G44.86 - Cervicogenic headache (3) Vertigo: Code(s): R42 - Dizziness and giddiness Plan I will trial him on baclofen 5mg qhs continue neck exercises. Medications: New baclofen 5 mg PO BEDTIME 30 tabs 3RF Coding Level of Care Code Est Pt Level 4 (21586) Diagnoses Antecollis G24.8 Cervicogenic headache G44.86 Vertigo R42
[2023-02-06 10:32] VITALS: BP 118/64; PULSE 82; O2SAT 99
--- NOTE | 2023-02-06 10:51 | MHC.OFFVIS ---
Intake Vital Signs 02/06/23 10:32 Weight 161 lb BP 118/64 Blood Pressure Location Rt brachial Position Sitting Pulse 82 Pulse Source Pulse Oximeter Pulse Oximetry (%) 99 Oxygen Delivery Method Room Air Intake Visit Reasons: 3m follow up Cervicogenic headache-lvm Allergies No Known Allergies Allergy (Verified 02/06/23 10:35) Medication List - Last Reconciled 02/06/23 by Sidra Ramirez MD albuterol sulfate 90 mcg/actuation 1 puff inhalation QID PRN carvedilol 12.5 mg PO BID dapagliflozin propanediol (Farxiga) 10 mg PO DAILY fluoxetine 20 mg PO DAILY fluticasone propion-salmeterol 230-21 mcg/actuation (Advair HFA) 2 puffs inhalation BID levothyroxine 75 mcg PO DAILY 90 days lisinopril 2.5 mg PO DAILY meclizine 25 mg PO DAILY PRN 30 days metoprolol succinate ER 25 mg PO DAILY torsemide 1 tab PO BID warfarin 5 mg (2 x 2.5 mg) PO DAILY 90 days [facility] Medical History Antecollis Poor balance Subdural fluid collection Cervicogenic headache 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 Sister Ovarian cancer Social History Household Members: Spouse Housing: Apartment Are you a primary home health care worker to a significant other at home: No Do you presently have visiting nurse or other home services: Yes ([facility] Alcohol intake: never Patient Tobacco Use Status: Never used Tobacco e-Cigarette/Vaping Use: Never Used service: No Current occupational status: retired Cognitive needs: No Hearing needs: No Vision needs: No Physical Exam Vital Signs: Last Vital Signs Pulse 82 02/06/23 10:32 BP 118/64 02/06/23 10:32 Pulse Ox 99 02/06/23 10:32 Oxygen Delivery Method Room Air 02/06/23 10:32 Assessment & Plan Assessment & Plan (1) Antecollis: Code(s): G24.8 - Other dystonia (2) Cervicogenic headache: Code(s): G44.86 - Cervicogenic headache (3) Vertigo: Code(s): R42 - Dizziness and giddiness Medications: New baclofen 5 mg PO BEDTIME 30 tabs 3RF Coding Diagnoses Antecollis G24.8 Cervicogenic headache G44.86 Vertigo R42
== END 2023-02-06 10:52 | disposition home or self-care (01) ==
PROVIDERS: PCP Internal Medicine; Visit Provider Psychiatry & Neurology Neurology
DX: G24.8 Other dystonia (principal); G44.86 Cervicogenic headache; R42 Dizziness and giddiness
CPT/HCPCS: 99214

== ENCOUNTER → 2023-02-06 10:25 | Outpatient (BNVA) | payer MEDICARE, SELFPAY | PROVIDERS: PCP Internal Medicine; Visit Provider Psychiatry & Neurology Neurology | DX: G44.86 Cervicogenic headache (principal); G24.8 Other dystonia; R42 Dizziness and giddiness | CPT/HCPCS: 99212 ==

== ENCOUNTER 2023-02-07 13:46 | Outpatient (AMB) | payer MEDICARE, SELFPAY ==
--- NOTE | 2023-02-07 13:56 | A.OFFPC_ITS ---
Vital Signs 02/07/23 13:58 Height 5 ft 10 in Weight 72.575 kg BMI 23.0 BP 130/68 Blood Pressure Location Lt brachial Position Sitting Pulse 78 Pulse Source Pulse Oximeter Pulse Oximetry (%) 98 Oxygen Delivery Method Room Air Intake Visit Reasons: Requesting Referral to Kidney Specialist Allergies No Known Allergies Allergy (Verified 02/07/23 13:58) Tobacco use date assessed: 08/21/22 Fall risk assessment: 1 Fall in past year Last assessed Fall Risk: 02/07/23 Dental Screening Dental Screen Date: 02/07/23 Did you have a dental visit in the last 12 months?: No Did you have a dental problem in the last 6 months where you did not have access to dental care?: No Was dental information given to patient?: No HPI Requesting Referral to Kidney Specialist HPI Details 67-year-old with a history of dilated ca rdiomyopathy ICD(history of cardiac arrest), obstructive sleep apnea, atrial fibrillation and congestive heart failure coming in for follow-up. Last seen in August 2022. Review of the notes follows up with Neurology for the vertigo headaches and neck pain had vestibular therapy physical therapy question of helping. Headaches mild mostly occipital and frontal patient was given some muscle relaxant. Patient also has seen Nephrology January diagnosis of chronic kidney disease stage 2, patient was in the emergency room in October had some chest pains echocardiogram noticing severely dilated left ventricular function ejection fraction of 10-15% severe global hypokinesis patient did show abnormal myocardial perfusion imaging severely dilated left ventricular and severely depressed systolic function with distal inferior apical akinesis patient follows up with Heart failure Service on digoxin metoprolol SG LT due inhibitor stress test September 2020 nonischemic. . PAtient has hematuria and will be having a cystoscopy [facility] Medical History (Updated 02/07/23 @ 14:43 by Susan Dobbs MD) Antecollis Poor balance Subdural fluid collection Cervicogenic headache 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 Sister Ovarian cancer Social History Household Members: Spouse Housing: Apartment Are you a primary care assistant to a significant other at home: No Do you presently have visiting nurse or other home services: Yes ([facility] ([facility] Alcohol intake: never Patient Tobacco Use Status: Never used Tobacco e-Cigarette/Vaping Use: Never Used service: No Current occupational status: retired Cognitive needs: No Hearing needs: No Vision needs: No Questionnaire PHQ-9 Over the last 2 weeks, how often have you been bothered by any of the following problems? 1. Little interest or pleasure in doing things: not at all 2. Feeling down, depressed, or hopeless: not at all 3. Trouble falling or staying asleep, or sleeping too much: not at all 4. Feeling tired or having little energy: not at all 5. Poor appetite or overeating: not at all 6. Feeling bad about yourself - or that you are a failure or have let yourself or your family down: not at all 7. Trouble concentrating on things, such as reading the newspaper or watching television: not at all 8. Moving or speaking so slowly that other people could have noticed. Or the opposite - being so fidgety or restless that you have been moving around a lot more than usual: not at all 9. Thoughts that you would be better off or of hurting yourself in some way: not at all Total score: 0 Depression Screening Interpretation: Negative Source: Developed by Drs. Lukas Esquivel, Elizabeth Cortes, Severiano Feliciano and colleagues, with an educational yang from [employer]. Thrive Questionnaire Date Thrive assessed: 08/21/22 AUDIT C Alcohol Use Questionnaire (AUDIT-C) 1. How often do you have a drink containing alcohol?: Never 3. How often do you have six or more drinks on one occasion?: Never Total Score: 0 HODA-7 AMB Questionnaire HODA-7 Date HODA - 7 assessed: 08/21/22 Source: Developed by Drs. Lukas Esquivel, Elizabeth Cortes, Severiano Feliciano and colleagues, with an educational yang from [employer]. Physical exam (Primary Care) Vital Signs: Last Vital Signs Pulse 78 02/07/23 13:58 BP 130/68 02/07/23 13:58 Pulse Ox 98 02/07/23 13:58 Oxygen Delivery Method Room Air 02/07/23 13:58 BMI result Body Mass Index 23.0 Tobacco/Smoking Status: Tobacco use Status Tobacco use date assessed 08/21/22 02/07/23 13:58 Patient Tobacco Use Status Never used Tobacco 02/07/23 13:58 e-Cigarette/Vaping Use Never Used 02/07/23 13:58 PHQ-9: PHQ-9 Score PHQ-9: Total score 0 02/07/23 14:43 Depression Screening Interpretation: Negative Thrive Assessment: Date of Thrive Assessment Date Thrive assessed 08/21/22 02/07/23 13:58 Const General: alert; No acute distress Eyes Conjunctivae: conjunctivae normal Resp Auscultation: clear to auscultation bilaterally Cardio Other: Irregular rate and rhythm GI Inspection: Yes normal to inspection Extrem General: Yes normal to inspection and No edema Immunizations pneumoc 20-kay conj-dip cr(PF) 0.5 mL IM syringe Performing Provider: Susan Dobbs MD Performing Location: [facility] Administered by: Xena Martel CMA on 02/07/23 14:50 Dose Route Admin Location Dispensed Lot Number Expiration Date NDC [place] 0.5 mL IM Left Deltoid 0.5 mL [id number] 02/12/24 Nutrinsic/Lysosomal Therapeutics VIS Given Date VIS Provided VIS Publication Date 02/07/23 Single Vaccine 21 Eligibility Eligibility Date Funding Source Not VFC Eligible 02/07/23 Private Assessment and Plan Assessment & Plan (1) CHF (congestive heart failure): Comment: Class 3 hospitalized 11/2019 reduced ejection fraction Code(s): I50.9 - Heart failure, unspecified Plan: Continue with diuretics, weigh daily continue with digoxin, continue with carvedilol, Farxiga. (2) ICD (implantable cardioverter-defibrillator) in place: Code(s): Z95.810 - Presence of automatic (implantable) cardiac defibrillator Plan: Continue to follow-up with cardiology (3) Hypothyroidism: Code(s): E03.9 - Hypothyroidism, unspecified Qualifiers: Hypothyroidism type: unspecified Qualified Code(s): E03.9 - Hypothyroidism, unspecified Plan: Continue with thyroid medication (4) CAD (coronary artery disease): Code(s): I25.10 - Atherosclerotic heart disease of [place] coronary artery without angina pectoris Plan: Control the cholesterol, weight, blood pressure (5) Anemia: Code(s): D64.9 - Anemia, unspecified Plan: Continue to monitor (6) Dilated cardiomyopathy: Code(s): I42.0 - Dilated cardiomyopathy Plan: Continue with cardiology follow-up placed on metoprolol, Farxiga (7) Afib: Code(s): I48.91 - Unspecified atrial fibrillation Qualifiers: Atrial fibrillation type: permanent Qualified Code(s): I48.21 - Permanent atrial fibrillation Plan: Continue with anticoagulation. (8) Hematuria: Code(s): R31.9 - Hematuria, unspecified Plan: Patient wants a referral to urology for planned cystoscopy(I do not have any details) Orders: Orders Pneumococcal 20 Immunization Today Z23 - Encounter for immunization Referrals Urology Referral R31.9 - Hematuria, unspecified Coding Level of Care Code Est Pt Level 4 (97584) Diagnoses CHF (congestive heart failure) I50.9 ICD (implantable cardioverter-defibrillator) in place Z95.810 Hypothyroidism, unspecified type E03.9 Hypothyroidism type: unspecified CAD (coronary artery disease) I25.10 Anemia D64.9 Dilated cardiomyopathy I42.0 Permanent atrial fibrillation I48.21 Atrial fibrillation type: permanent Hematuria R31.9
[2023-02-07 13:58] VITALS: BP 130/68; PULSE 78; O2SAT 98; BMI 23.0
== END 2023-02-07 15:59 | disposition home or self-care (01) ==
PROVIDERS: PCP Internal Medicine; Visit Provider Internal Medicine
DX: I50.9 Heart failure, unspecified (principal); I42.0 Dilated cardiomyopathy; I48.21 Permanent atrial fibrillation; Z23 Encounter for immunization; Z95.810 Presence of automatic (implantable) cardiac defibrillator; E03.9 Hypothyroidism, unspecified; I25.10 Atherosclerotic heart disease of native coronary artery without angina pectoris; D64.9 Anemia, unspecified; R31.9 Hematuria, unspecified
CPT/HCPCS: 90471; 90677; 99214

== ENCOUNTER 2023-04-12 15:42 | Emergency (ER) | payer MEDICARE, SELFPAY ==
--- NOTE | ~2023-04-12 | XR_ITS ---
EXAMINATION: XR CHEST CLINICAL INFORMATION: Shortness of breath COMPARISON: None available. TECHNIQUE: 2 views of the chest were obtained. FINDINGS: There is mild cardiac enlargement. No evidence of CHF. A left chest wall dual-lead pacer/defibrillator is present. CardioMEMS device is present in the left pulmonary artery. No infiltrates, effusions or lung masses are seen. XR/XR chest 2V IMPRESSION: Mild cardiomegaly. No acute intrathoracic disease.
[2023-04-12 15:45] VITALS: BP 112/76; PULSE 89; RESP 17; TEMP 36.7; O2SAT 100; BMI 23.8
--- NOTE | 2023-04-12 15:48 | ED.GENADULT ---
HPI - General Adult General Chief complaint: General Medical Stated complaint: sob Time Seen by Provider: 04/12/23 22:42 Source: patient, RN notes reviewed and old records reviewed Mode of arrival: ambulatory Limitations: no limitations History of Present Illness HPI narrative: 68-year-old male past medical history significant for cardiomyopathy, congestive heart failure, AFib, chronic kidney disease, AICD implantation, coronary artery disease presents for evaluation of shortness of breath Patient states that he is ?always short of breath. ? Patient states for the last few days he has had worsening shortness of breath that is worse when he walks or lies flat. He reports that he has to be very active but now has trouble walking to the bottom the driveway He denies any leg swelling He reports subjective fevers and chills And he denies any chest pain He reports increased anxiety and stress due to ?my of 34 years not doing well. She is admitted at [facility]. He states that he is supposed to have a big meeting with their kids at [facility] tomorrow about his Related Data Home Medications Medication Instructions Recorded Confirmed albuterol sulfate 90 mcg/actuation 1 puff inhalation QID PRN wheezing 03/25/20 02/06/23 aerosol inhaler lisinopril 2.5 mg tablet 2.5 mg PO DAILY 03/25/20 02/06/23 fluticasone propionate 230 2 puff inhalation BID 07/20/20 02/06/23 mcg-salmeterol 21 mcg/actuation HFA inhaler (Advair HFA) torsemide 20 mg tablet 1 tab PO BID 07/20/20 02/06/23 carvedilol 25 mg tablet 12.5 mg PO BID 03/06/22 02/06/23 dapagliflozin propanediol 10 mg 10 mg PO DAILY 10/24/22 02/06/23 tablet (Farxiga) metoprolol succinate 25 mg 25 mg PO DAILY 10/24/22 02/06/23 tablet,extended release 24 hr Previous Rx's Medication Instructions Recorded fluoxetine 20 mg capsule 20 mg PO DAILY #90 caps 09/20/22 levothyroxine 75 mcg tablet 75 mcg PO DAILY 90 days #90 tabs 10/05/22 meclizine 25 mg tablet 25 mg PO DAILY PRN motion sickness 10/05/22 30 days #30 tabs warfarin 2.5 mg tablet 5 mg (2 x 2.5 mg) PO DAILY 90 days 11/22/22 #180 tabs baclofen 5 mg tablet 5 mg PO BEDTIME #30 tabs 02/06/23 azithromycin 250 mg tablet See Rx Instructions PO .COMPLEX #6 04/12/23 tabs furosemide 40 mg tablet (Lasix) 40 mg PO DAILY #3 tabs 04/12/23 Allergies Allergy/AdvReac Type Severity Reaction Status Date / Time No Known Allergies Allergy Verified 02/07/23 13:58 Review of Systems Constitutional: Constitutional: Reports chills, Reports fever(s) and Reports weakness Eyes: Eyes: Denies exophthalmos ENT: Denies sore throat Cardiovascular: Cardiovascular: Denies chest pain, Denies chest pain with activity, Denies leg edema, Reports dyspnea and Reports dyspnea on exertion Respiratory: Respiratory: Denies cough, Denies pain with cough, Reports dyspnea and Reports dyspnea on exertion Gastrointestinal: Gastrointestinal: Denies abdominal pain, Denies nausea and Denies vomiting Musculoskeletal: Musculoskeletal: Denies back pain Integumentary/Breasts: Skin/Breast: Denies rash Neurologic: Reports weakness PMFSH Past Medical History Medical History (Updated 04/12/23 @ 23:[address]) Antecollis Poor balance Subdural fluid collection Cervicogenic headache Status post insertion of pressure sensor into pulmonary artery Back pain GERD (gastroesophageal reflux disease) Chronic renal insufficiency Depression CAD (coronary artery disease) Thyroid disease CHF (congestive heart failure) Arrhythmia COPD (chronic obstructive pulmonary disease) Hx of cardiac arrest Right inguinal hernia Groin lump Surgical History History of esophagogastroduodenoscopy (EGD) H/O colonoscopy History of radiofrequency ablation procedure for cardiac arrhythmia History of cardiac defibrillator placement Family History Family History Father Brain cancer Kidney malignancy Mother No problems noted. Sister Ovarian cancer Social History Social History Household Members: Spouse Housing: Apartment Are you a primary healthcare business analyst to a significant other at home: No Do you presently have visiting nurse or other home services: Yes ([facility] Alcohol intake: never Patient Tobacco Use Status: Never used Tobacco e-Cigarette/Vaping Use: Never Used Advance Directives: No Advance Directives Information Provided: No service: No Current occupational status: retired Cognitive needs: No Hearing needs: No Vision needs: No Physical Exam ED Vital Signs: Vital Signs - 24 hr 04/12/23 15:45 04/12/23 21:02 Temperature 98.0 F 96.6 F L Pulse Rate 89 81 Respiratory Rate 17 16 Blood Pressure 112/76 143/81 H Pulse Oximetry 100 98 Oxygen Delivery Method Room Air Room Air BMI result Body Mass Index 23.8 Const General: healthy appearing, comfortable, no acute distress, alert and awake Nutritional Appearance: well nourished Orientation/consciousness: patient oriented x3 HENMT Head: Yes normocephalic and Yes atraumatic Eyes Eyelids: Yes eyelids normal Conjunctivae: conjunctivae normal Sclerae: sclerae normal Corneas: corneas normal Pupils: Equal, round and reactive pupils present EOM: EOMs intact bilaterally Neck Neck: Yes full ROM Resp Effort & Inspection: normal respiratory effort, able to speak in complete sentences, no audible wheezes and not labored Auscultation: clear to auscultation bilaterally Cardio Other: No pitting edema Rate: regular rate Rhythm: regular rhythm Skin General skin exam: no rashes or lesions noted and elasticity normal Neuro General: patient oriented x3 Cranial nerves: Yes Equal, round and reactive pupils present and Yes Bilaterally intact EOM present Cognition (Neuro): normal cognition Extrem Other: Moving all extremities well without any obvious deformities Course Course Course Narrative: This is a rapid medical exam: Additional HPI, ROS, PE not included below will be deferred to primary provider. Patient is a 68-year-old male with history of CHF, afib, CKD, CAD presenting to the ED with complaint of fever, cough, abdominal pain and diarrhea since Sunday. Went to [facility] clinic prior to arrival and tested negative for flu and Covid, was referred to the ED for a chest x-ray. Plan: swab for covid, flu, rsv, labs, CXR, UA Medical Decision Making Medical Decision Making MDM Narrative: 68-year-old male with multiple comorbidities presents for evaluation of shortness of breath. His workup was largely unremarkable emergency department, he has no leukocytosis, his chemistries are without significant abnormalities. His BNP is elevated to 758 the he has a history of similar. Chest x-ray shows no pleural effusions. He patient has no chest pain. He is anticoagulated with Coumadin and his INR is therapeutic at 3.4 he is not hypoxic, tachycardic or tachypneic, making PE much less likely. Patient's symptoms are likely related to mild CHF and due to subjective fevers possibly some degree of viral syndrome Differential Diagnosis Differential Diagnoses: The differential diagnosis associated with the presentation includes Upper respiratory infection Congestive heart failure Pneumonia Bronchitis CAD less likely Admission/Observation Consideration of admission/observation: Escalation of care including admission/observation considered Lab Data MDM Lab Attestation statement: I reviewed the patient's lab results. As above 04/12/23 15:58 04/12/23 16:56 Labs: Lab Results 04/12/23 04/12/23 04/12/23 Range/Units 15:58 15:59 16:56 WBC 6.7 (4.8-10.8) X10*3/uL RBC 4.46 L (4.60-5.80) X10*6/uL Hgb 10.5 L (14.0-18.0) g/dl Hct 36.0 L (42.0-52.0) % MCV 80.7 (80.0-98.0) fL MCH 23.5 L (27.0-33.0) pg MCHC 29.2 L (31.0-36.0) g/dl RDW 15.1 (11.0-16.0) % Plt Count 183 (160-400) X10*3/uL MPV 9.7 (9.4-12.4) fL Immature Gran % (Auto) 0.3 (0.0-0.4) % Neut % (Auto) 68.4 (45-73) % Lymph % (Auto) 20.1 (20-40) % Carson % (Auto) 8.5 (2-11) % Eos % (Auto) 1.8 (0-4) % Baso % (Auto) 0.9 (0-2) % Lymph # (Auto) 1.4 (1.2-4.9) X10*3/uL Carson # (Auto) 0.6 (0.1-1.2) X10*3/uL Eos # (Auto) 0.1 (0.0-0.4) X10*3/uL Baso # (Auto) 0.1 (0.0-0.2) X10*3/uL Abs Immat Gran (auto) 0.02 (0.00-0.03) X10*3/uL Absolute Neuts (auto) 4.6 (2.0-8.3) x10*3/uL Absolute Nucleated RBC 0.000 (0.0-0.012) X10*3/uL Nucleated RBC % (auto) 0.0 (0.0-0.2) /100WBC PT 41.8 H (11.1-13.3) SEC INR 3.4 H (0.9-1.1) Sodium 138 (135-145) mmol/L Potassium 4.2 (3.3-5.1) mmol/L Chloride 106 (96-108) mmol/L Carbon Dioxide 28 (22-29) mmol/L Anion Gap 8 L (12-20) BUN 15 (9-16) mg/dL Creatinine 1.13 (0.5-1.4) mg/dL Estim Creat Clear Calc 66.3 Estimated GFR > 60 Random Glucose 82 (60-115) mg/dL Calcium 9.2 (8.4-10.2) mg/dL Total Bilirubin 0.4 (0.0-1.0) mg/dL AST 23 (5-37) U/L ALT 8 (0-40) U/L Alkaline Phosphatase 58 (39-117) U/L B-Natriuretic Peptide (<100) pg/mL Total Protein 7.5 (6.5-8.0) g/dL Albumin 4.1 (3.5-5.0) g/dL Influenza Type A (PCR) NEGATIVE (Negative) Influenza Type B (PCR) NEGATIVE (Negative) RSV RNA Qual (PCR) NEGATIVE (Negative) SARS-CoV-2 RNA (RT-PCR) NEGATIVE (Negative) 04/12/23 Range/Units 21:58 WBC (4.8-10.8) X10*3/uL RBC (4.60-5.80) X10*6/uL Hgb (14.0-18.0) g/dl Hct (42.0-52.0) % MCV (80.0-98.0) fL MCH (27.0-33.0) pg MCHC (31.0-36.0) g/dl RDW (11.0-16.0) % Plt Count (160-400) X10*3/uL MPV (9.4-12.4) fL Immature Gran % (Auto) (0.0-0.4) % Neut % (Auto) (45-73) % Lymph % (Auto) (20-40) % Carson % (Auto) (2-11) % Eos % (Auto) (0-4) % Baso % (Auto) (0-2) % Lymph # (Auto) (1.2-4.9) X10*3/uL Carson # (Auto) (0.1-1.2) X10*3/uL Eos # (Auto) (0.0-0.4) X10*3/uL Baso # (Auto) (0.0-0.2) X10*3/uL Abs Immat Gran (auto) (0.00-0.03) X10*3/uL Absolute Neuts (auto) (2.0-8.3) x10*3/uL Absolute Nucleated RBC (0.0-0.012) X10*3/uL Nucleated RBC % (auto) (0.0-0.2) /100WBC PT (11.1-13.3) SEC INR (0.9-1.1) Sodium (135-145) mmol/L Potassium (3.3-5.1) mmol/L Chloride (96-108) mmol/L Carbon Dioxide (22-29) mmol/L Anion Gap (12-20) BUN (9-16) mg/dL Creatinine (0.5-1.4) mg/dL Estim Creat Clear Calc Estimated GFR Random Glucose (60-115) mg/dL Calcium (8.4-10.2) mg/dL Total Bilirubin (0.0-1.0) mg/dL AST (5-37) U/L ALT (0-40) U/L Alkaline Phosphatase (39-117) U/L B-Natriuretic Peptide 758 H (<100) pg/mL Total Protein (6.5-8.0) g/dL Albumin (3.5-5.0) g/dL Influenza Type A (PCR) (Negative) Influenza Type B (PCR) (Negative) RSV RNA Qual (PCR) (Negative) SARS-CoV-2 RNA (RT-PCR) (Negative) Independent Interpretation I performed an independent interpretation of an: Plain X-Ray (No infiltrates) Radiology Impression Discussion of test interpretation with radiology: I have reviewed the radiologist's reading. (Mild cardiomegaly, no acute intrathoracic disease) Discharge Plan Discharge Clinical Impression: Acute dyspnea Patient Disposition: Home, Self-Care Instructions: Dyspnea (ED) Additional Instructions: Your symptoms are likely related to mild congestive heart failure as well as an upper respiratory infection. Take Lasix 40 mg daily for the next 3 days The take azithromycin as directed Follow-up with your primary doctor Return for new or worsening symptoms Prescriptions: New azithromycin 250 mg tablet See Rx Instructions .ROUTE .COMPLEX Qty: 6 0RF Rx Instructions: For 250 mg dose pack: take 500 mg today (day 1), then 250 mg for 4 days (days 2-5) furosemide [Lasix] 40 mg tablet 40 mg PO DAILY Qty: 3 0RF No Action fluoxetine 20 mg capsule 20 mg PO DAILY Qty: 90 0RF levothyroxine 75 mcg tablet 75 mcg PO DAILY 90 Days Qty: 90 1RF meclizine 25 mg tablet 25 mg PO DAILY PRN (Reason: motion sickness) 30 Days Qty: 30 3RF warfarin 2.5 mg tablet 5 mg PO DAILY 90 Days Qty: 180 1RF Hold Instructions: Resume on 07/28/20. Rx Instructions: Patient taking 5 mg daily torsemide 20 mg tablet 1 tab PO BID Advair HFA 230-21 mcg/actuation Hfa Aerosol Inhaler 2 puff INHALATION BID lisinopril 2.5 mg tablet 2.5 mg PO DAILY albuterol sulfate 90 mcg/actuation HFA aerosol inhaler 1 puff inhalation QID PRN (Reason: wheezing) carvedilol 25 mg tablet 12.5 mg PO BID metoprolol succinate 25 mg tablet extended release 24 hr 25 mg PO DAILY Farxiga 10 mg tablet 10 mg PO DAILY baclofen 5 mg tablet 5 mg PO BEDTIME Qty: 30 3RF
[2023-04-12 16:06] LABS: MANUAL DIFF FLAG NO
[2023-04-12 16:08] LABS: Basophils Absolute Auto 0.1 X10*3/uL (0.0-0.2); Basophils Percent Auto 0.9 % (0-2); Eosinophils Absolute Auto 0.1 X10*3/uL (0.0-0.4); Eosinophils Percent Auto 1.8 % (0-4); Hemoglobin 10.5 g/dl (14.0-18.0); Imm Gran Abs Auto 0.02 X10*3/uL (0.00-0.03); Imm Gran Pct Auto 0.3 % (0.0-0.4); Lymphocytes Absolute Auto 1.4 X10*3/uL (1.2-4.9); Lymphocytes Percent Auto 20.1 % (20-40); Mean Corpuscular HGB Conc 29.2 g/dl (31.0-36.0); Mean Corpuscular Hemoglobin 23.5 pg (27.0-33.0); Mean Corpuscular Volume 80.7 fL (80.0-98.0); Mean Platelet Volume 9.7 fL (9.4-12.4); Monocytes Absolute Auto 0.6 X10*3/uL (0.1-1.2); Monocytes Percent Auto 8.5 % (2-11); Neutrophils Absolute Auto 4.6 x10*3/uL (2.0-8.3); Neutrophils Percent Auto 68.4 % (45-73); Platelet Count 183 X10*3/uL (160-400); Red Blood Count 4.46 X10*6/uL (4.60-5.80); Red Cell Distribution Width 15.1 % (11.0-16.0); White Blood Count 6.7 X10*3/uL (4.8-10.8)
[2023-04-12 16:14] LABS: INTERNATIONAL NORM RATIO 3.4 (0.9-1.1); Prothrombin Time 41.8 SEC (11.1-13.3)
[2023-04-12 16:42] LABS: Influenza A PCR NEGATIVE (Negative); Influenza B PCR NEGATIVE (Negative); Resp Syncy Virus RNA Qual PCR NEGATIVE (Negative); SARS COV2 PCR INHOUSE NEGATIVE (Negative)
[2023-04-12 17:29] LABS: Alanine Aminotransferase 8 U/L (0-40); Albumin Level 4.1 g/dL (3.5-5.0); Alkaline Phosphatase 58 U/L (39-117); Anion Gap 8 (12-20); Aspartate Amino Transferase 23 U/L (5-37); Bilirubin Total 0.4 mg/dL (0.0-1.0); Blood Urea Nitrogen 15 mg/dL (9-16); Calcium 9.2 mg/dL (8.4-10.2); Carbon Dioxide 28 mmol/L (22-29); Chloride 106 mmol/L (96-108); Creatinine Clr Calc Pharmacy 66.3; Estimated Glomerular Filt Rate > 60; Glucose Random 82 mg/dL (60-115); Potassium 4.2 mmol/L (3.3-5.1); Sodium 138 mmol/L (135-145); Total Protein 7.5 g/dL (6.5-8.0)
[2023-04-12 21:02] VITALS: BP 143/81; PULSE 81; RESP 16; TEMP 35.9; O2SAT 98
[2023-04-12 22:30] LABS: B Type Natriuretic Peptide 758 pg/mL (<100)
== END 2023-04-12 23:41 | disposition home or self-care (01) ==
PROVIDERS: Registered Nurse Emergency; Emergency Provider Student in an Organized Health Care Education/Training Program; PCP Internal Medicine
DX: R06.02 Shortness of breath (principal); I50.9 Heart failure, unspecified; I48.91 Unspecified atrial fibrillation; F41.9 Anxiety disorder, unspecified; R50.9 Fever, unspecified; Z79.01 Long term (current) use of anticoagulants; Z20.822 Contact with and (suspected) exposure to COVID-19; Z20.828 Contact with and (suspected) exposure to other viral communicable diseases; Z79.899 Other long term (current) drug therapy; Z63.79 Other stressful life events affecting family and household
CPT/HCPCS: 0241U; 36415; 71046; 80053; 83880; 85025; 85610; 99282; 99283

== ENCOUNTER 2023-04-16 16:47 | Outpatient (AMB) | payer MEDICARE, SELFPAY ==
[2023-04-16 16:48] VITALS: BP 130/78; PULSE 103; O2SAT 98; BMI 23.2
--- NOTE | 2023-04-16 16:48 | MHC.PC.OV ---
Vital Signs 04/16/23 16:48 Height 5 ft 10 in Weight 161 lb 8 oz BMI 23.2 BP 130/78 Blood Pressure Location Lt brachial Position Sitting Pulse 103 H Pulse Source Pulse Oximeter Pulse Oximetry (%) 98 Oxygen Delivery Method Room Air Intake Visit Reasons: dyspnea Telephone Answering Service Operator Required: No Accompanied by: Self / Same As Patient Allergies No Known Allergies Allergy (Verified 04/16/23 17:43) Medication List - Last Reconciled 04/17/23 by Jose Christine MD albuterol sulfate 90 mcg/actuation 1 puff inhalation QID PRN azithromycin For 250 mg dose pack: take 500 mg today (day 1), then 250 mg for 4 days (days 2-5) baclofen 5 mg PO BEDTIME carvedilol 12.5 mg PO BID dapagliflozin propanediol (Farxiga) 10 mg PO DAILY fluoxetine 20 mg PO DAILY fluticasone propion-salmeterol 230-21 mcg/actuation (Advair HFA) 2 puffs inhalation BID levothyroxine 75 mcg PO DAILY 90 days lisinopril 2.5 mg PO DAILY meclizine 25 mg PO DAILY PRN 30 days metoprolol succinate ER 25 mg PO DAILY torsemide 20 mg PO BID warfarin 5 mg (2 x 2.5 mg) PO DAILY 90 days Tobacco use date assessed: 04/16/23 Fall risk assessment: 1 Fall in past year Last assessed Fall Risk: 04/16/23 Dental Screening Dental Screen Date: 04/16/23 Did you have a dental visit in the last 12 months?: No Did you have a dental problem in the last 6 months where you did not have access to dental care?: No Was dental information given to patient?: No HPI dyspnea HPI Details Patient comes in today for his HDF follow up visit He went to the ER a few days ago for increasing shortness of breath and some orthopnea Workup done in the ER, including labs and chest x-rays, revealed (+) mild anemia and findings suggestive of congestive heart failure Chest x-ray showed mild cardiomegaly with no acute infiltrates; respiratory panel came back negative for influenza, RSV and COVID He was started empirically on azithromycin and was also started on furosemide 40 mg daily for 3 days Patient states that his symptoms have improved significantly since and he is currently finishing up his prescription for Z-Freddie States that he still feels short of breath at times and is wondering if he should be on a diuretic long-term He denies any fever, headaches or dizziness Denies any exertional chest pains No nausea/vomiting, no abdominal pain No change in bowel habits noted [facility] Medical History (Updated 04/17/23 @ 04:43 by Jose Christine MD) Atrial fibrillation Antecollis Poor balance Subdural fluid collection Cervicogenic headache 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 Sister Ovarian cancer Social History Household Members: Spouse Housing: Apartment Are you a primary health care manager to a significant other at home: No Do you presently have visiting nurse or other home services: Yes ([facility] ([facility] Alcohol intake: never Patient Tobacco Use Status: Never used Tobacco e-Cigarette/Vaping Use: Never Used service: No Current occupational status: retired Cognitive needs: No Hearing needs: No Vision needs: No Questionnaire PHQ-9 Over the last 2 weeks, how often have you been bothered by any of the following problems? 1. Little interest or pleasure in doing things: not at all 2. Feeling down, depressed, or hopeless: not at all 3. Trouble falling or staying asleep, or sleeping too much: not at all 4. Feeling tired or having little energy: not at all 5. Poor appetite or overeating: not at all 6. Feeling bad about yourself - or that you are a failure or have let yourself or your family down: not at all 7. Trouble concentrating on things, such as reading the newspaper or watching television: not at all 8. Moving or speaking so slowly that other people could have noticed. Or the opposite - being so fidgety or restless that you have been moving around a lot more than usual: not at all 9. Thoughts that you would be better off or of hurting yourself in some way: not at all Total score: 0 Depression Screening Interpretation: Negative Depression Screening Done: Yes 20208 - PHQ-9 Billing: Yes Source: Developed by Drs. Lukas Esquivel, Elizabeth Cortes, Severiano Feliciano and colleagues, with an educational yang from [employer]. Thrive Questionnaire Date Thrive assessed: 04/16/23 I am a: Patient What is your living situation today?: I have a steady place to live Within the past 12 months, did the food you bought not last and you didn't have the money to get more?: Never true Within the past 12 months, did you worry whether your food would run out before you got money to buy more?: Never true Do you have trouble paying for medicines?: No Do you have trouble getting transportation to medical appointments?: No Do you have trouble paying your heating and electricity bill?: No Do you have trouble taking care of your child, family member or friend?: No Do you have trouble with day-to-day activities such as bathing, preparing meals, shopping, managing finances, etc.?: No Are you currently unemployed and looking for a job?: No Are you interested in more education?: No Please select the resources that you would like help with: None Currently or been in a relationship where the following occur: no concerns reported AUDIT C Alcohol Use Questionnaire (AUDIT-C) 1. How often do you have a drink containing alcohol?: Never 3. How often do you have six or more drinks on one occasion?: Never Total Score: 0 Score Reviewed/Action Taken: Yes HODA-7 AMB Questionnaire HODA-7 Date HODA - 7 assessed: 04/16/23 Feeling nervous, anxious, or on edge: 0 = Not at all Not being able to stop or control worryin = Not at all Worrying too much about different things: 0 = Not at all Trouble relaxin = Not at all Being so restless that it is hard to sit still: 0 = Not at all Becoming easily annoyed or irritable: 0 = Not at all Feeling afraid as if something awful might happen: 0 = Not at all Total HODA-7 score (0-4 normal; 5-9 mild; 10-14 moderate; 15-21 severe): 0 Source: Developed by Drs. Lukas Esquivel, Elizabeth Cortes, Severiano Feliciano and colleagues, with an educational yang from [employer]. Review of Systems Const Denies chills, Reports fatigue, Denies fever(s) and Denies headache(s) ENT Denies dysphagia, Denies dizziness, Denies otalgia, Denies headache(s), Denies neck pain, Denies odynophagia and Denies sore throat Card Denies chest pain, Denies palpitations and Reports dyspnea on exertion Resp Denies cough and Reports dyspnea on exertion GI Denies abdominal pain, Denies constipation, Denies dysphagia, Denies heartburn, Denies diarrhea, Denies nausea, Denies odynophagia and Denies vomiting Denies dysuria, Denies nocturia and Denies urinary frequency Musc Denies neck pain Neuro Denies dizziness and Denies headache(s) Endo Reports fatigue and Denies palpitations Physical exam (Primary Care) Vital Signs: Last Vital Signs Pulse 103 H 04/16/23 16:48 BP 130/78 04/16/23 16:48 Pulse Ox 98 04/16/23 16:48 Oxygen Delivery Method Room Air 04/16/23 16:48 BMI result Body Mass Index 23.2 Tobacco/Smoking Status: Tobacco use Status Tobacco use date assessed 04/16/23 04/16/23 16:50 Patient Tobacco Use Status Never used Tobacco 04/16/23 16:50 e-Cigarette/Vaping Use Never Used 04/16/23 16:50 PHQ-9: PHQ-9 Score PHQ-9: Total score 0 04/16/23 17:54 Depression Screening Interpretation: Negative Thrive Assessment: Date of Thrive Assessment Date Thrive assessed 04/16/23 04/16/23 16:50 Currently or been in a relationship where the following occur: no concerns reported Const General: no acute distress and alert Neck Neck: Yes no lymphadenopathy and Yes supple Resp Auscultation: no crackles, no rales, rhonchi throughout and no wheezes Cardio Rate: regular rate Rhythm: abnormal rhythm irregularly irregular Heart sounds: no murmurs GI Palpation (GI): Soft to palpation and nontender Auscultation: normal bowel sounds Extrem General: Yes no clubbing, cyanosis or edema Assessment and Plan Assessment & Plan (1) CHF (congestive heart failure): Comment: Class 3 hospitalized 11/2019 reduced ejection fraction Code(s): I50.9 - Heart failure, unspecified Qualifiers: Heart failure type: unspecified Heart failure chronicity: acute on chronic Qualified Code(s): I50.9 - Heart failure, unspecified Plan: Patient reports (+) significant improvement of his recent [place] with oral diuretics x 3 days; is wondering if he should be on the additional diuretic as maintenance therapy He is advised that he is presently already on a diuretic (Torsemide 20 mg BID) and as we currently do not have any information on the details of his cardiac condition, he should follow-up with his telecommunications cable jointer at [facility] regarding this - states that he has an upcoming appointment with [facility] later this month on 05/09/2023 and he will discuss this further with them As patient does not appear to have had any echocardiogram on record here over the years, will try sending him for an echocardiogram for further evaluation of his cardiac condition Reinforced fluid restriction Continue Carvedilol 12.5 mg BID, Farxiga 10 mg QD. Torsemide 20 mg BID and Lisinopril 2.5 mg QD (2) Atrial fibrillation: Code(s): I48.91 - Unspecified atrial fibrillation Qualifiers: Atrial fibrillation type: persistent (not longstanding) Qualified Code(s): I48.19 - Other persistent atrial fibrillation Plan: Patient is currently in atrial fibrillation but is rate-controlled Continue Metoprolol ER 25 mg QD Continue Coumadin 5 mg QD for thromboembolism prophylaxis (3) COPD exacerbation: Code(s): J44.1 - Chronic obstructive pulmonary disease with (acute) exacerbation Plan: His respiratory symptoms appear to be resolving and he is advised to finish up his Z-freddie Continue Advair HFA 230-21 mcg 2 inhalations BID and Albuterol HFA 1 to 2 inhalations QID PRN Plan Follow up with PCP in 1 month Orders: Orders CA echo transthoracic complete 04/16/23 I50.9 - Heart failure, unspecified, R06.09 - Other forms of dyspnea Coding Level of Care Code Est Pt Level 3 (94912) Diagnoses Acute on chronic congestive heart failure, unspecified heart failure type I50.9 Heart failure type: unspecified Heart failure chronicity: acute on chronic Persistent atrial fibrillation I48.19 Atrial fibrillation type: persistent (not longstanding) COPD exacerbation J44.1
== END 2023-04-16 17:56 | disposition home or self-care (01) ==
PROVIDERS: PCP Internal Medicine; Visit Provider Internal Medicine
DX: I50.9 Heart failure, unspecified (principal); I48.19 Other persistent atrial fibrillation; J44.1 Chronic obstructive pulmonary disease with (acute) exacerbation
CPT/HCPCS: 99213

== ENCOUNTER → 2023-05-02 07:59 | Outpatient (REF) | payer MEDICARE, SELFPAY ==
--- NOTE | 2023-05-02 08:01 | CA_ITS ---
Transthoracic Echocardiogram Patient (Last, First, Middle): Jose Thorpe, Gender: Male Date of : 1955 Age: 68 Procedure Date: 05/02/2023 Procedure Type: Transthoracic Echocardiogram Location: OP Height: 172.72 cm Weight: 72.58 kg BSA: 1.86 m2 Heart Rate: bpm BP: 140 / 70 mmHg Metal Fabricating Inspector: TO Referring MD: Jose Christine MD Community Health Counselor: Royal Dykes MD Symptoms: R06.09 - Other forms of dyspnea Study Quality: Fair ECG Rhythm: Atrial Fibrillation Conclusions: - 1. Moderately dilated left ventricle with severely reduced LV ejection fraction of 10-15% 2. Severely dilated left atrium 3. Moderate to severe mitral regurgitation 4. Moderate tricuspid regurgitation with upper limits of normal RV systolic pressure with mildly elevated right atrial pressures 5. No pericardial effusion Findings Procedure Information The study quality is limited by the patients inability to tolerate the test. Left Ventricle Moderately increased left ventricular cavity size. There is normal left ventricular wall thickness. The left ventricular systolic function is severely decreased. The visually estimated ejection fraction is between 10 15%. There is severe global hypokinesis. Diastolic function is indeterminate on the basis of available data. Right Ventricle Mildly increased right ventricular cavity size. There is an ICD wire seen in the right ventricle. Atria The left atrium is severely dilated. Interatrial shunt cannot be excluded. The right atrium is moderately dilated. A pacemaker wire is identified in the right atrium. Aortic Valve Normal aortic valve structure and function. There is no aortic valve stenosis. There is no aortic valve regurgitation. Mitral Valve There is mild anterior and posterior mitral leaflet thickening. There is moderate to severe mitral valve regurgitation. There is no mitral valve stenosis. Pulmonic Valve The pulmonic valve is likely normal. There is trace to mild pulmonic valve regurgitation. Tricuspid Valve Normal tricuspid valve structure. There is moderate tricuspid valve regurgitation. Mildly elevated right atrial pressure. There is no evidence of pulmonary hypertension. Great Vessels The pulmonary artery was not well visualized. There is no dilatation of the ascending aorta measuring 3.30 cm. Venous The inferior vena cava is moderately dilated and collapses greater than 50% with inspiration. Pericardium/Pleural There is no evidence of pericardial effusion. Prior Study Comparison No prior study available for comparison. Measurements 2D Linear Measurements IVSd: 1.22 0.6-0.9/0.6-1.0 cm LVIDd: 6.64 3.9-5.3/4.2-5.9 cm LVIDd Index: 3.57 2.4-3.2/2.2-3.1 cm/m2 LVIDs: 6.07 2.0-3.6 cm LVPWd: 0.86 0.7-1.1 cm LA Diam: 5.60 2.7-3.8/3.0-4.0 cm LAIDs Index: 3.01 1.5-2.3 cm/m2 LV Mass: 384.16 67-162/88-224 g LV Mass Index: 206.54 43-95/49-115 g/m2 LVOT Diam: 2.60 3.0+(-)1.3 cm 2D Systolic Function EF 4C: 11.80 >55% EF 2C: 13.40 >55% EF BiP: 12.60 >55% Mitral Valve MV Pk E: 0.94 MV Decel Time: 160.00 E'Lateral: 8.49 E'Medial: 5.33 E/E' Med: 17.70 E/E' Lat: 11.10 PHT: 47.00 MVA PHT: 4.68 Decel Mccurtain: 5.88 MR Vol - PW Dopp: 37.20 MR VTI: 1.24 MR ERO: 30.00 MR Alias Freddie: 0.40 MR RAD: 0.70 Aortic Valve AoV Pk Freddie: 0.93 AoV Mn Freddie: 0.70 AoV VTI: 0.15 AoV Pk Grad: 3.00 Aov Mn Grad: 2.00 BRITNEY Cont.VTI: 3.64 LVOT LVOT Pk Freddie: 0.59 LVOT Mn Freddie: 0.38 LVOT VTI: 0.10 LVOT Pk Grad: 1.00 LVOT Mn Grad: 1.00 LVOT Diam: 2.60 LVOT Area: 5.31 Diastolic Function MV Pk E: 0.94 E'Medial: 5.33 E/E' Med: 17.70 E' Laterial: 8.49 E/E' Lat: 11.10 Right Ventricle TAPSE (mm): 19.20 TVS' Freddie: 9.70 Tricuspid Valve TR Pk Freddie: 2.69 TR Pk Grad: 29.00 RA Press: 8.00 RVSP: 37.00 Great Vessels Aorta Sinus of Valsalva: 3.39 2.0-3.[address] Ridge: 2.49 1.7-3.4 cm Ao Asc: 3.30 2.1-3.4 cm Updated in Other Vendor System with Status of Final Royal Dykes MD electronically signed on 05/02/2023 6:38:59 PM with status of Final
== END ==
LOC: HO.CARD 07:59
PROVIDERS: Visit Provider Internal Medicine
DX: R06.09 Other forms of dyspnea (principal); I50.9 Heart failure, unspecified
CPT/HCPCS: 93306

== ENCOUNTER → 2023-05-02 08:01 | Outpatient (BNV) | payer MEDICARE, SELFPAY | PROVIDERS: Visit Provider Internal Medicine Cardiovascular Disease | DX: I08.1 Rheumatic disorders of both mitral and tricuspid valves (principal) | CPT/HCPCS: 93306 ==

== ENCOUNTER 2024-01-22 16:05 | Outpatient (AMB) | payer MEDICARE, SELFPAY ==
[2024-01-22 16:06] VITALS: BP 122/66; PULSE 82; O2SAT 96; BMI 22.7
--- NOTE | 2024-01-22 16:06 | MHC.PC.OV ---
Vital Signs 01/22/24 16:06 Height 5 ft 10 in Weight 158 lb BMI 22.7 BP 122/66 Blood Pressure Location Lt brachial Position Sitting Pulse 82 Pulse Source Pulse Oximeter Pulse Oximetry (%) 96 Oxygen Delivery Method Room Air Intake Visit Reasons: HDF ~ Post hospital discharge FU Market Basket Maker Required: No Accompanied by: Self / Same As Patient Allergies No Known Allergies Allergy (Verified 01/22/24 16:13) Medication List - Last Reconciled 01/23/24 by Jose Christine MD albuterol sulfate 90 mcg/actuation 1 puff inhalation QID PRN baclofen 5 mg PO BEDTIME carvedilol 12.5 mg PO BID dapagliflozin propanediol (Farxiga) 10 mg PO DAILY fluoxetine 20 mg PO DAILY fluticasone propion-salmeterol 230-21 mcg/actuation (Advair HFA) 2 puffs inhalation BID levothyroxine 75 mcg PO DAILY 90 days lisinopril 2.5 mg PO DAILY meclizine 25 mg PO DAILY PRN 30 days metoprolol succinate ER 25 mg PO DAILY torsemide 20 mg PO BID warfarin 5 mg (2 x 2.5 mg) PO DAILY 90 days Tobacco use date assessed: 01/22/24 Fall risk assessment: No Falls in past year Last assessed Fall Risk: 01/22/24 Dental Screening Dental Screen Date: 01/22/24 Did you have a dental visit in the last 12 months?: No Did you have a dental problem in the last 6 months where you did not have access to dental care?: No Was dental information given to patient?: Patient has dentist HPI HDF ~ Post hospital discharge FU HPI Details Patient comes in today for his HDF follow up visit - was last seen by me for follow up back in April 2023 although his PCP is Dr. Dobbs He was seen at the ER at [facility] back on 12/03/2023 when he presented there with chest pains Cardiac work ups done at the hospital came back negative He was also reportedly experiencing some left shoulder tenderness at the time and he was advised that his chest pains are likely musculoskeletal in origin, with the possibility that some of his pain is referred pain from the shoulder as well Patient at the time, however, appeared very depressed and expressed some suicidal ideations to the hospital staff so he was eventually transferred over to the inpatient psychiatry unit after he was cleared and discharged from the ER Patient states that he spent mostly just a few days in the psychiatry unit and did not think that any of his meds were changed as he is currently still on Fluoxetine 20 mg QD for his mood Patient states that he currently still has on and off pain over his left anterior chest (wall) area that are mostly reproducible with palpation over his left chest wall Relates that these do not seem to be associated with activity or exertion and states that he is fairly active and independent with most of his ADLs and he currently has no significant limitations with regards to his activities He denies any headaches or dizziness Denies any increased SOB No nausea/vomiting, no abdominal pain No change in bowel habits noted [facility] Medical History (Updated 01/23/24 @ 12:36 by Jose Christine MD) Acquired hypothyroidism Chronic kidney disease, stage III (moderate) Atrial fibrillation Antecollis Poor balance Subdural fluid collection Cervicogenic headache 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 Sister Ovarian cancer Social History Household Members: Spouse Housing: Apartment Are you a primary care program director to a significant other at home: No Do you presently have visiting nurse or other home services: Yes ([facility] Alcohol intake: never Patient Tobacco Use Status: Never used Tobacco e-Cigarette/Vaping Use: Never Used service: No Current occupational status: retired Cognitive needs: No Hearing needs: No Vision needs: No Questionnaire PHQ-9 Over the last 2 weeks, how often have you been bothered by any of the following problems? 1. Little interest or pleasure in doing things: not at all 2. Feeling down, depressed, or hopeless: not at all 3. Trouble falling or staying asleep, or sleeping too much: not at all 4. Feeling tired or having little energy: not at all 5. Poor appetite or overeating: not at all 6. Feeling bad about yourself - or that you are a failure or have let yourself or your family down: not at all 7. Trouble concentrating on things, such as reading the newspaper or watching television: not at all 8. Moving or speaking so slowly that other people could have noticed. Or the opposite - being so fidgety or restless that you have been moving around a lot more than usual: not at all 9. Thoughts that you would be better off or of hurting yourself in some way: not at all Total score: 0 Depression Screening Interpretation: Negative Depression Screening Done: Yes 87166 - PHQ-9 Billing: Yes Source: Developed by Drs. Lukas Esquivel, Elizabeth Cortes, Severiano Feliciano and colleagues, with an educational yang from [employer]. Thrive Questionnaire Date Thrive assessed: 01/22/24 I am a: Patient What is your living situation today?: I have a steady place to live Within the past 12 months, did the food you bought not last and you didn't have the money to get more?: Never true Within the past 12 months, did you worry whether your food would run out before you got money to buy more?: Never true Do you have trouble paying for medicines?: No Do you have trouble getting transportation to medical appointments?: No Do you have trouble paying your heating and electricity bill?: No Do you have trouble taking care of your child, family member or friend?: No Do you have trouble with day-to-day activities such as bathing, preparing meals, shopping, managing finances, etc.?: No Are you currently unemployed and looking for a job?: No Are you interested in more education?: No Please select the resources that you would like help with: None Currently or been in a relationship where the following occur: No concerns reported THRIVE Score: 0 AUDIT C Alcohol Use Questionnaire (AUDIT-C) 1. How often do you have a drink containing alcohol?: Never 3. How often do you have six or more drinks on one occasion?: Never Total Score: 0 Score Reviewed/Action Taken: Yes HODA-7 AMB Questionnaire HODA-7 Date HODA - 7 assessed: 01/22/24 Feeling nervous, anxious, or on edge: 0 = Not at all Not being able to stop or control worryin = Not at all Worrying too much about different things: 0 = Not at all Trouble relaxin = Not at all Being so restless that it is hard to sit still: 0 = Not at all Becoming easily annoyed or irritable: 0 = Not at all Feeling afraid as if something awful might happen: 0 = Not at all Total HODA-7 score (0-4 normal; 5-9 mild; 10-14 moderate; 15-21 severe): 0 Source: Developed by Drs. Lukas Esquivel, Elizabeth Cortes, Severiano Feliciano and colleagues, with an educational yang from [employer]. Review of Systems Const Denies chills, Reports fatigue, Denies fever(s) and Denies headache(s) ENT Denies dysphagia, Denies dizziness, Denies otalgia, Denies headache(s), Denies neck pain, Denies odynophagia and Denies sore throat Card Reports chest pain (on and off, over the left anterior chest wall - see HPI), Denies palpitations and Reports dyspnea on exertion (mild) Resp Denies chest congestion, Denies cough and Reports dyspnea on exertion (mild) GI Denies abdominal pain, Denies constipation, Denies dysphagia, Denies heartburn, Denies diarrhea, Denies nausea, Denies odynophagia and Denies vomiting Denies dysuria, Denies nocturia and Denies urinary frequency Musc Denies back pain and Denies neck pain Skin/Breast Denies rash Neuro Denies dizziness and Denies headache(s) Endo Reports fatigue and Denies palpitations Physical exam (Primary Care) Vital Signs: Last Vital Signs Pulse 82 01/22/24 16:06 BP 122/66 01/22/24 16:06 Pulse Ox 96 01/22/24 16:06 Oxygen Delivery Method Room Air 01/22/24 16:06 BMI result Body Mass Index 22.7 Tobacco/Smoking Status: Tobacco use Status Tobacco use date assessed 01/22/24 01/22/24 16:08 Patient Tobacco Use Status Never used Tobacco 01/22/24 16:08 e-Cigarette/Vaping Use Never Used 01/22/24 16:08 PHQ-9: PHQ-9 Score PHQ-9: Total score 0 01/23/24 08:56 Depression Screening Interpretation: Negative Thrive Assessment: Date of Thrive Assessment Date Thrive assessed 01/22/24 01/22/24 16:08 Currently or been in a relationship where the following occur: No concerns reported Const General: no acute distress and alert HENMT Ears: TM's normal bilaterally and EAC's normal Throat: Yes posterior oropharynx normal and Yes tonsils normal Neck Neck: Yes no lymphadenopathy and Yes supple Thyroid: Thyroid normal Resp Auscultation: clear to auscultation bilaterally, no crackles, no rales and no wheezes Cardio Rate: regular rate Rhythm: abnormal rhythm irregularly irregular Heart sounds: no murmurs GI Palpation (GI): Soft to palpation and nontender Auscultation: normal bowel sounds General: Yes no CVA tenderness Back/Spine/Pelvis Back: no CVA tenderness Skin Rashes: no rashes Extrem General: Yes no clubbing, cyanosis or edema Assessment and Plan Assessment & Plan (1) Chest pain: Code(s): R07.9 - Chest pain, unspecified Qualifiers: Chest pain type: unspecified Qualified Code(s): R07.9 - Chest pain, unspecified Plan: Patient is advised again that his chest pains are most likely musculoskeletal in etiology and are not cardiac-related Advised that he may apply some mild heat or warm compress locally PRN for symptomatic relief (2) CHF (congestive heart failure): Comment: Class 3 hospitalized 11/2019 reduced ejection fraction, 04/2023 10-15% Dr. Quezada Code(s): I50.9 - Heart failure, unspecified Qualifiers: Heart failure chronicity: acute on chronic Heart failure type: unspecified Qualified Code(s): I50.9 - Heart failure, unspecified Plan: Reinforced fluid restriction His most recent echocardiogram done in April 2023 revealed (+) moderately dilated left ventricle with severely reduced LV ejection fraction of 10-15%, (+) severely dilated left atrium, moderate to severe mitral regurgitation, moderate tricuspid regurgitation with upper limits of normal RV systolic pressure with mildly elevated right atrial pressures. There were no pericardial effusion noted Continue Carvedilol 12.5 mg BID, Farxiga 10 mg QD, Torsemide 20 mg BID and Lisinopril 2.5 mg QD Follow up with cardiology as scheduled (3) Dilated cardiomyopathy: Comment: Echocardiogram April 2023 ejection fraction 10% Code(s): I42.0 - Dilated cardiomyopathy Plan: He has AICD in place and is on CardioMEMS Follow up with cardiology as scheduled (4) Atrial fibrillation: Comment: Dr. Quezada Code(s): I48.91 - Unspecified atrial fibrillation Qualifiers: Atrial fibrillation type: persistent (not longstanding) Qualified Code(s): I48.19 - Other persistent atrial fibrillation Plan: Patient is currently in atrial fibrillation but is rate-controlled Continue Metoprolol ER 25 mg QD Continue Coumadin 5 mg QD for thromboembolism prophylaxis (5) Acquired hypothyroidism: Code(s): E03.9 - Hypothyroidism, unspecified Plan: Continue Levothyroxine 75 mcg QD (6) COPD (chronic obstructive pulmonary disease): Comment: per H&P-patient denies Code(s): J44.9 - Chronic obstructive pulmonary disease, unspecified Qualifiers: COPD type: unspecified COPD Qualified Code(s): J44.9 - Chronic obstructive pulmonary disease, unspecified Plan: Continue Advair HFA 230-21 mcg 2 inhalations BID and Albuterol HFA 1 to 2 inhalations QID PRN (7) MDD (major depressive disorder): Code(s): F32.9 - Major depressive disorder, single episode, unspecified Qualifiers: Active/Remission status: currently active Major depression episode severity: mild Major depression recurrence: recurrent Qualified Code(s): F33.0 - Major depressive disorder, recurrent, mild Plan: He was recently admitted to the psychiatry unit at [facility] in November 2023 after voicing some suicidal ideation Continue Fluoxetine 20 mg QD Follow up with psychiatry as scheduled Plan Follow up with PCP in 4 months Coding Level of Care Code Est Pt Level 4 (94894) Diagnoses Chest pain, unspecified type R07.9 Chest pain type: unspecified Acute on chronic congestive heart failure, unspecified heart failure type I50.9 Heart failure chronicity: acute on chronic Heart failure type: unspecified Dilated cardiomyopathy I42.0 Persistent atrial fibrillation I48.19 Atrial fibrillation type: persistent (not longstanding) Acquired hypothyroidism E03.9 Chronic obstructive pulmonary disease, unspecified COPD type J44.9 COPD type: unspecified COPD Mild episode of recurrent major depressive disorder F33.0 Active/Remission status: currently active Major depression episode severity: mild Major depression recurrence: recurrent
== END 2024-01-22 16:37 | disposition home or self-care (01) ==
PROVIDERS: PCP Internal Medicine; Visit Provider Internal Medicine
DX: R07.9 Chest pain, unspecified (principal); I50.9 Heart failure, unspecified; I42.0 Dilated cardiomyopathy; I48.19 Other persistent atrial fibrillation; E03.9 Hypothyroidism, unspecified
CPT/HCPCS: 99214

== ENCOUNTER 2024-05-23 14:37 | Outpatient (AMB) | payer MEDICARE, SELFPAY ==
[2024-05-23 14:46] VITALS: BP 110/70; PULSE 52; O2SAT 96; BMI 23.8
--- NOTE | 2024-05-23 14:46 | MHC.PC.OV ---
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: No Accompanied by: Self / Same As Patient Allergies No Known Allergies Allergy (Verified 05/23/24 14:47) Medication List - Last Reconciled 05/23/24 by Susan Dobbs MD albuterol sulfate 90 mcg/actuation 1 puff inhalation QID PRN carvedilol 12.5 mg PO BID dapagliflozin propanediol (Farxiga) 10 mg PO DAILY fluoxetine 20 mg PO DAILY fluticasone propion-salmeterol 230-21 mcg/actuation (Advair HFA) 2 puffs inhalation BID levothyroxine 75 mcg PO DAILY 90 days lisinopril 2.5 mg PO DAILY meclizine 25 mg PO DAILY PRN 30 days metoprolol succinate ER 25 mg PO DAILY torsemide 20 mg PO BID warfarin 5 mg (2 x 2.5 mg) PO DAILY 90 days Tobacco use date assessed: 05/23/24 Fall risk assessment: No Falls in past year Last assessed Fall Risk: 05/23/24 Dental Screening Dental Screen Date: 05/23/24 Did you have a dental visit in the last 12 months?: Yes Did you have a dental problem in the last 6 months where you did not have access to dental care?: No Was dental information given to patient?: Patient has dentist HPI Follow Up HPI Details The patient is a 69-year-old male presenting with chest pain. The patient reports experiencing sharp pains in the chest, which he describes as muscular in nature according to previous evaluations. The chest pain reportedly does not persist, as the patient has undergone evaluations including hospital visits where cardiac causes were ruled out. The patient has a history of asthma and reports the use of a rescue inhaler, albuterol, approximately once a week. He also possesses Advair but has not been using it regularly. There is a reported history of congestive heart failure, with occasional respiratory symptoms potentially related to this condition. The patient lives in [facility], where he receives routine INR checks for his warfarin therapy. His INR levels have been maintained between 2-3. A recent blood test was deemed necessary to monitor his health, given his conditions and recent hospitalizations. The patient has been under significant emotional stress lately due to the recent passing of his from a cardiac arrest. He noted attending the psychiatric [facility] three times over the year. He indicates some support from family, particularly grandchildren, which helps with his emotional wellbeing. [facility] Medical History (Updated 05/23/24 @ 15:09 by Susan Dobbs MD) Acquired hypothyroidism Chronic kidney disease, stage III (moderate) Atrial fibrillation Antecollis Poor balance Subdural fluid collection Cervicogenic headache 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 Sister Ovarian cancer Social History Household Members: Spouse Housing: Apartment Are you a primary child adolescent care to a significant other at home: No Do you presently have visiting nurse or other home services: Yes ([facility] Alcohol intake: never Patient Tobacco Use Status: Never used Tobacco e-Cigarette/Vaping Use: Never Used service: No Current occupational status: retired Cognitive needs: No Hearing needs: No Vision needs: No Questionnaire PHQ-9 Over the last 2 weeks, how often have you been bothered by any of the following problems? 1. Little interest or pleasure in doing things: not at all 2. Feeling down, depressed, or hopeless: not at all 3. Trouble falling or staying asleep, or sleeping too much: not at all 4. Feeling tired or having little energy: not at all 5. Poor appetite or overeating: not at all 6. Feeling bad about yourself - or that you are a failure or have let yourself or your family down: not at all 7. Trouble concentrating on things, such as reading the newspaper or watching television: not at all 8. Moving or speaking so slowly that other people could have noticed. Or the opposite - being so fidgety or restless that you have been moving around a lot more than usual: not at all 9. Thoughts that you would be better off or of hurting yourself in some way: not at all Total score: 0 Depression Screening Interpretation: Negative Depression Screening Done: Yes 74096 - PHQ-9 Billing: Yes Source: Developed by Drs. Lukas Esquivel, Elizabeth Cortes, Severiano Feliciano and colleagues, with an educational yang from [employer]. Thrive Questionnaire Date Thrive assessed: 05/23/24 I am a: Patient What is your living situation today?: I have a steady place to live Within the past 12 months, did the food you bought not last and you didn't have the money to get more?: Never true Within the past 12 months, did you worry whether your food would run out before you got money to buy more?: Never true Do you have trouble paying for medicines?: No Do you have trouble getting transportation to medical appointments?: No Do you have trouble paying your heating and electricity bill?: No Do you have trouble taking care of your child, family member or friend?: No Do you have trouble with day-to-day activities such as bathing, preparing meals, shopping, managing finances, etc.?: No Are you currently unemployed and looking for a job?: No Are you interested in more education?: No Please select the resources that you would like help with: None Currently or been in a relationship where the following occur: No concerns reported THRIVE Score: 0 AUDIT C Alcohol Use Questionnaire (AUDIT-C) 1. How often do you have a drink containing alcohol?: Never 3. How often do you have six or more drinks on one occasion?: Never Total Score: 0 Score Reviewed/Action Taken: Yes HODA-7 AMB Questionnaire HODA-7 Date HODA - 7 assessed: 05/23/24 Feeling nervous, anxious, or on edge: 0 = Not at all Not being able to stop or control worryin = Not at all Worrying too much about different things: 0 = Not at all Trouble relaxin = Not at all Being so restless that it is hard to sit still: 0 = Not at all Becoming easily annoyed or irritable: 0 = Not at all Feeling afraid as if something awful might happen: 0 = Not at all Total HODA-7 score (0-4 normal; 5-9 mild; 10-14 moderate; 15-21 severe): 0 Source: Developed by Drs. Lukas Esquivel, Elizabeth Cortes, Severiano Feliciano and colleagues, with an educational yang from [employer]. Physical exam (Primary Care) Vital Signs: Last Vital Signs Pulse 52 05/23/24 14:46 BP 110/70 05/23/24 14:46 Pulse Ox 96 05/23/24 14:46 Oxygen Delivery Method Room Air 05/23/24 14:46 BMI result Body Mass Index 23.8 Tobacco/Smoking Status: Tobacco use Status Tobacco use date assessed 05/23/24 05/23/24 14:51 Patient Tobacco Use Status Never used Tobacco 05/23/24 14:51 e-Cigarette/Vaping Use Never Used 05/23/24 14:51 PHQ-9: PHQ-9 Score PHQ-9: Total score 0 05/23/24 14:54 Depression Screening Interpretation: Negative Thrive Assessment: Date of Thrive Assessment Date Thrive assessed 05/23/24 05/23/24 14:51 Currently or been in a relationship where the following occur: No concerns reported Const General: alert; No acute distress Eyes Conjunctivae: conjunctivae normal Resp Auscultation: clear to auscultation bilaterally Cardio Rate: regular rate Rhythm: regular rhythm GI Inspection: Yes normal to inspection Extrem General: Yes normal to inspection and No edema Coding Level of Care Code Est Pt Level 4 (41951) Complex EM visit Add On G2211 Diagnoses Dilated cardiomyopathy I42.0 Acute on chronic congestive heart failure, unspecified heart failure type I50.9 Heart failure chronicity: acute on chronic Heart failure type: unspecified CAD (coronary artery disease) I25.10 Hypothyroidism, unspecified type E03.9 Hypothyroidism type: unspecified Mild episode of recurrent major depressive disorder F33.0 Active/Remission status: currently active Major depression episode severity: mild Major depression recurrence: recurrent Stage 3 chronic kidney disease, unspecified whether stage 3a or 3b CKD N18.30 Chronic kidney disease stage 3 subtype: unspecified whether 3a or 3b Additional Codes PHQ-9 - 21441 - PHQ-9 Billing: Yes ([id number]) Assessment & Plan Assessment & Plan (1) Dilated cardiomyopathy: Comment: [facility] 20[facility] Code(s): I42.0 - Dilated cardiomyopathy Category: Medical Plan: [facility] (2) CHF (congestive heart failure): Comment: Class 3 hospitalized 11/2019 reduced ejection fraction, 04/2023 10-15% Dr. Quezada Code(s): I50.9 - Heart failure, unspecified Category: Medical Qualifiers: Heart failure chronicity: acute on chronic Heart failure type: unspecified Qualified Code(s): I50.9 - Heart failure, unspecified (3) CAD (coronary artery disease): Comment: Dr. Quezada Code(s): I25.10 - Atherosclerotic heart disease of [place] coronary artery without angina pectoris Category: Medical (4) Hypothyroidism: Code(s): E03.9 - Hypothyroidism, unspecified Category: Medical Qualifiers: Hypothyroidism type: unspecified Qualified Code(s): E03.9 - Hypothyroidism, unspecified (5) MDD (major depressive disorder): Comment: counselling and therapy [facility] CHD Code(s): F32.9 - Major depressive disorder, single episode, unspecified Category: Medical Qualifiers: Active/Remission status: currently active Major depression episode severity: mild Major depression recurrence: recurrent Qualified Code(s): F33.0 - Major depressive disorder, recurrent, mild (6) CKD (chronic kidney disease) stage 3, GFR 30-59 ml/min: Code(s): N18.30 - Chronic kidney disease, stage 3 unspecified Category: Medical Qualifiers: Chronic kidney disease stage 3 subtype: unspecified whether 3a or 3b Qualified Code(s): N18.30 - Chronic kidney disease, stage 3 unspecified Plan - Investigate musculoskeletal causes of chest pain; recommend trial of acetaminophen for pain relief. - Reinforce the use of Advair for asthma management and advise rinsing mouth post-use. - Monitor and manage congestive heart failure symptoms; emphasize elevation and positioning to reduce fluid from affecting respiratory function. - Continue routine INR checks to ensure appropriate warfarin therapy management. - Encourage the patient to maintain a low-sodium diet and healthy lifestyle to manage hypertension. - Discuss with the patient the importance of continuing follow-ups with mental health professionals due to recent bereavement and depressive symptoms. - Schedule blood tests to assess blood levels, including fasting requirements for comprehensive analysis. - Confirm vaccination history and ensure proper documentation. - Encourage maintaining physical activity despite musculoskeletal discomfort, focusing on manageable exercises. Orders: Orders Complete Blood Count Auto Diff Today N18.30 - Chronic kidney disease, stage 3 unspecified Comprehensive Met. Panel Today N18.30 - Chronic kidney disease, stage 3 unspecified Free T4 (Free Thyroxine) Today N18.30 - Chronic kidney disease, stage 3 unspecified Vitamin B12 and Folate Today N18.30 - Chronic kidney disease, stage 3 unspecified B Type Natriuretic Peptide Today N18.30 - Chronic kidney disease, stage 3 unspecified Lipid Panel Today E78.00 - Pure hypercholesterolemia, unspecified, N18.30 - Chronic kidney disease, stage 3 unspecified Thyroid Stimulating Hormone Today N18.30 - Chronic kidney disease, stage 3 unspecified Ferritin Today N18.30 - Chronic kidney disease, stage 3 unspecified IRON PROFILE Today N18.30 - Chronic kidney disease, stage 3 unspecified Prostate Specific Antigen Scr Today N18.30 - Chronic kidney disease, stage 3 unspecified
== END 2024-05-23 15:20 | disposition home or self-care (01) ==
PROVIDERS: PCP Internal Medicine; Visit Provider Internal Medicine
DX: I42.0 Dilated cardiomyopathy (principal); I50.9 Heart failure, unspecified; F33.0 Major depressive disorder, recurrent, mild; N18.30 Chronic kidney disease, stage 3 unspecified; I25.10 Atherosclerotic heart disease of native coronary artery without angina pectoris; E03.9 Hypothyroidism, unspecified

== ENCOUNTER → 2024-05-23 14:37 | Outpatient (BNVA) | payer MEDICARE, SELFPAY | PROVIDERS: PCP Internal Medicine; Visit Provider Internal Medicine | DX: I42.0 Dilated cardiomyopathy (principal); I50.9 Heart failure, unspecified; I25.10 Atherosclerotic heart disease of native coronary artery without angina pectoris; E03.9 Hypothyroidism, unspecified; F33.0 Major depressive disorder, recurrent, mild; N18.30 Chronic kidney disease, stage 3 unspecified | CPT/HCPCS: 96127; 99212 ==

== ENCOUNTER 2024-08-27 13:15 | Outpatient (AMB) | payer MEDICARE, SELFPAY ==
--- NOTE | 2024-08-27 13:22 | A.OFFVIS_ITS ---
Intake Vital Signs 08/27/24 13:26 Height 5 ft 7 in Weight 171 lb BMI 26.8 BP 102/70 Blood Pressure Location Lt brachial Position Sitting Pulse 56 Pulse Source Pulse Oximeter Pulse Oximetry (%) 97 Oxygen Delivery Method Room Air Intake Visit Reasons: AWV G0438 Allergies No Known Allergies Allergy (Verified 08/27/24 13:26) Medication List - Last Reconciled 08/27/24 by Susan Dobbs MD dapagliflozin propanediol (Farxiga) 10 mg PO DAILY fluoxetine 40 mg PO DAILY fluticasone propion-salmeterol 230-21 mcg/actuation (Advair HFA) 2 puffs inhalation BID levothyroxine 75 mcg PO DAILY 90 days lisinopril 2.5 mg PO DAILY meclizine 25 mg PO DAILY PRN 30 days metoprolol succinate ER 25 mg PO DAILY torsemide 20 mg PO BID warfarin 5 mg (2 x 2.5 mg) PO DAILY 90 days HPI AWV G0438 HPI Details wakes up QD sob, PFSH Medical History (Updated 08/27/24 @ 13:43 by Susan Dobbs MD) Hypothyroidism Afib Acquired hypothyroidism Chronic kidney disease, stage III (moderate) Atrial fibrillation Antecollis Poor balance Subdural fluid collection Cervicogenic headache 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 Sister Ovarian cancer Social History Household Members: Spouse Housing: Apartment Are you a primary transitions rn care coordinator to a significant other at home: No Do you presently have visiting nurse or other home services: Yes ([facility])) Alcohol intake: never Patient Tobacco Use Status: Never used Tobacco e-Cigarette/Vaping Use: Never Used service: No Current occupational status: retired Cognitive needs: No Hearing needs: No Vision needs: No Questionnaire Medicare Wellness Checkup What [age] 65-71 What gender do you identify with?: male During the past 4 weeks, how much have you been bothered by emotional problems such as feeling anxious, depressed, irritable, sad or downhearted, and blue?: quite a bit During the past 4 weeks, has your physical & emotional health limited your social activities with family, friends, neighbors, or groups?: quite a bit During the past 4 weeks, how much bodily pain have you generally had?: severe pain During the past 4 weeks, was someone available to help you if you needed & wanted help?: yes, a little During the past 4 weeks, what was the hardest physical activity you could do for at least 2 minutes?: moderate Can you get to places out of walking distance without help? (For eg., can you travel alone on buses, taxis or drive your car?): Yes Can you go shopping for groceries or clothes without someone's help?: Yes Can you prepare your own meals?: Yes Can you do your housework without help?: Yes Because of any health problems, do you need the help of another person with your personal care needs such as eating, bathing, dressing or getting around the house?: Yes Can you handle your own money without help?: No During the past 4 weeks, how would you rate your health in general?: good During the past 4 weeks how have things been going for you?: good & bad parts about equal Are you having difficulties driving your car?: not applicable, I don't use a car Do you always fasten your seat belt when you are in a car?: yes, usually During past 4 weeks, have you been bothered by the following: never: Falling or dizzy when standing up, Sexual problems?, Trouble eating well?, Teeth or denture problems?, Problems using the telephone? and Tiredness or fatigue? Have you fallen 2 or more times in the past year?: Yes Are you afraid of falling?: Yes Are you a smoker?: no During the past 4 weeks, how many drinks of wine, beer, or other alcoholic beverages did you have?: no alcohol at all Do you exercise for about 20 minutes 3 or more times a week?: yes, most of the time How often do you have trouble taking medicines the way you have been told to take them?: I do not have to take medicine How confident are you that you can control & manage most of your health problems?: very confident What is your race?: White PHQ-9 Over the last 2 weeks, how often have you been bothered by any of the following problems? 1. Little interest or pleasure in doing things: nearly every day 2. Feeling down, depressed, or hopeless: nearly every day 3. Trouble falling or staying asleep, or sleeping too much: nearly every day 4. Feeling tired or having little energy: nearly every day 5. Poor appetite or overeating: nearly every day 6. Feeling bad about yourself - or that you are a failure or have let yourself or your family down: nearly every day 7. Trouble concentrating on things, such as reading the newspaper or watching television: nearly every day 8. Moving or speaking so slowly that other people could have noticed. Or the opposite - being so fidgety or restless that you have been moving around a lot more than usual: nearly every day 9. Thoughts that you would be better off or of hurting yourself in some way: nearly every day Total score: 27 Depression Screening Interpretation: Positive Depression Screening Done: Yes 81554 - PHQ-9 Billing: Yes Source: Developed by Drs. Lukas Esquivel, Elizabeth Cortes, Severiano Feliciano and colleagues, with an educational yang from [employer]. Thrive Questionnaire Date Thrive assessed: 05/23/24 HODA-7 AMB Questionnaire HODA-7 Date HODA - 7 assessed: 08/27/24 Feeling nervous, anxious, or on edge: 3 = Nearly every day Not being able to stop or control worryin = Nearly every day Worrying too much about different things: 3 = Nearly every day Trouble relaxin = Nearly every day Being so restless that it is hard to sit still: 0 = Not at all Becoming easily annoyed or irritable: 0 = Not at all Feeling afraid as if something awful might happen: 2 = More than half the days Total HODA-7 score (0-4 normal; 5-9 mild; 10-14 moderate; 15-21 severe): 14 Source: Developed by Drs. Lukas Esquivel, Elizabeth Cortes, Severiano Feliciano and colleagues, with an educational yang from [employer]. HODA-7 Assessment Billing HODA-7 Assessment Tool: HODA-7 Assessment 11546 Review of Systems Const Denies poor appetite and Denies weakness Eyes Denies no additional complaints ENT Reports Normal hearing present, Denies dizziness, Denies nasal congestion, Denies tinnitus and Denies sore throat Card Denies chest pain, Denies syncope, Denies rapid heart rate and Denies dyspnea Resp Denies cough and Denies dyspnea GI Denies change in stool character, Reports constipation, Denies diarrhea, Denies nausea and Denies vomiting Denies dysuria and Denies urinary frequency Neuro Reports Normal hearing present, Denies confusion, Denies dizziness, Denies syncope and Denies weakness Psych Denies confusion Physical Exam Vital Signs: Last Vital Signs Pulse 56 08/27/24 13:26 BP 102/70 08/27/24 13:26 Pulse Ox 97 08/27/24 13:26 Oxygen Delivery Method Room Air 08/27/24 13:26 BMI result Body Mass Index 26.8 Const General: No confusion Orientation/consciousness: No confusion HEENT Other: impacted cerumen bilateral Head: Yes normocephalic Ears: external ears normal Face and sinus: Yes normal facial exam Mouth: moist mucous membranes Throat: Yes tonsils normal Eyes Conjunctivae: conjunctivae normal Pupils: Equal, round and reactive pupils present and Pupil accommodation reflex normal Direct Ophthalmoscopy: normal light reflex Neck Neck: No lymphadenopathy Thyroid: Thyroid normal Chest Chest palpation & inspection: normal inspection of the chest Resp Effort & Inspection: normal respiratory effort and no audible wheezes Auscultation: clear to auscultation bilaterally, no crackles, no wheezes and lung sounds not diminished Cardio Rate: regular rate Rhythm: regular rhythm Peripheral pulses: radial pulses present and dorsalis pedis present GI Other: guaaic negative , prostate mild enlarged Palpation (GI): no masses Auscultation: normal bowel sounds and normoactive bowel sounds Male General Exam: Yes normal external exam Skin General skin exam: no rashes or lesions noted Rashes: no rashes Neuro General: No confusion Cranial nerves: Yes Equal, round and reactive pupils present and Yes Normal hearing present Cognition (Neuro): normal cognition Gait exam (Neuro): Normal gait present Motor exam (neuro): 5/5 motor strength present throughout Deep tendon reflexes (DTR's): Right brachioradialis reflex intensity grade: 2+, Left brachioradialis reflex intensity grade: 2+, Right patellar reflex intensity grade: 2+ and Left patellar reflex intensity grade: 2+ Extrem General: No edema Assessment & Plan Assessment & Plan (1) Medicare annual wellness visit, subsequent: Code(s): Z00.00 - Encounter for general adult medical examination without abnormal findings Plan: Patient is advised to eat healthy, keep well hydrated, keep active and have adequate sleep. (2) Dilated cardiomyopathy: Comment: Echocardiogram April 2023 ejection fraction 10%[facility] Code(s): I42.0 - Dilated cardiomyopathy Plan: Advised to continue follow-up with cardiology piero gu October 13, 2024 (3) ICD (implantable cardioverter-defibrillator) in place: Code(s): Z95.810 - Presence of automatic (implantable) cardiac defibrillator Plan: Continues to follow up with Cardiology (4) CAD (coronary artery disease): Comment: Dr. Quezada Code(s): I25.10 - Atherosclerotic heart disease of [place] coronary artery without angina pectoris Plan: Control the cholesterol, weight, blood pressure patient on anticoagulation with Coumadin (5) MDD (major depressive disorder): Comment: counselling and therapy [facility], [place], operated by [facility] Code(s): F32.9 - Major depressive disorder, single episode, unspecified Qualifiers: Active/Remission status: currently active Major depression episode severity: mild Major depression recurrence: recurrent Qualified Code(s): F33.0 - Major depressive disorder, recurrent, mild Plan: Advised to continue on with counseling and therapy (6) CKD (chronic kidney disease) stage 3, GFR 30-59 ml/min: Code(s): N18.30 - Chronic kidney disease, stage 3 unspecified Qualifiers: Chronic kidney disease stage 3 subtype: unspecified whether 3a or 3b Qualified Code(s): N18.30 - Chronic kidney disease, stage 3 unspecified Plan: Keep well hydrated avoid NSAIDs patient needs blood work (7) CHF (congestive heart failure): Comment: Class 3 hospitalized 11/2019 reduced ejection fraction, 04/2023 10-15% Dr. Quezada Code(s): I50.9 - Heart failure, unspecified Qualifiers: Heart failure chronicity: acute on chronic Heart failure type: unspecified Qualified Code(s): I50.9 - Heart failure, unspecified Plan: Weigh daily, avoid salt continue to follow-up with cardiology (8) Atrial fibrillation: Comment: Dr. Quezada Code(s): I48.91 - Unspecified atrial fibrillation Qualifiers: Atrial fibrillation type: persistent (not longstanding) Qualified Code(s): I48.19 - Other persistent atrial fibrillation Plan: Patient on anticoagulation with Coumadin (9) COPD (chronic obstructive pulmonary disease): Comment: per H&P-patient denies Code(s): J44.9 - Chronic obstructive pulmonary disease, unspecified Qualifiers: COPD type: unspecified COPD Qualified Code(s): J44.9 - Chronic obstructive pulmonary disease, unspecified Plan: On albuterol inhaler as needed (10) Acquired hypothyroidism: Code(s): E03.9 - Hypothyroidism, unspecified Plan: Patient is advised to get blood work done Plan History of Present Illness The patient is a 69-year-old male presenting for a routine physical exam and follow-up of multiple chronic conditions. He has a background of coronary artery disease, hypothyroidism, chronic kidney disease, and atrial fibrillation, among other conditions, with recent findings of anemia. Despite a recommendation for CPAP therapy following the diagnosis of obstructive sleep apnea, issues of weight gain and shortness of breath persist. Last noted bloodwork signaled persistent anemia; however, his electrolytes, liver enzymes, and renal function remain normal. The patient's ongoing care includes follow-ups with cardiology for cardiac-related conditions and therapy for mental health support, although he continues to experience emotional challenges. Screening and preventative measures such as colonoscopy and echocardiogram have been completed in previous years. Health Maintenance - Colonoscopy last performed in 2019. - Home sleep study conducted in July 2019. - Blood work in March 2023 showing anemia. - Patient advised to continue cardiology follow-up, particularly for cardiac conditions. Social History - Denies alcohol and tobacco use. - Reports exercise routine in the home due to limitations; exercises at 4:30 am in the basement. - Attends therapy and psychiatric consultations for mental health support. Review of Systems - Cardiovascular: Reports weight gain, denies nausea, vomiting, and fevers. - Respiratory: Denies use of albuterol inhaler; reports shortness of breath. - Gastrointestinal: Reports occasional heartburn, denies nausea, constipation, or diarrhea. - Genitourinary: Denies dysuria, nocturia approximately twice per night. - Neurological: Reports regularly attending therapy and counseling sessions. - Endocrine: Denies recent thyroid-related symptoms. - Hematological: Reports anemia, denies bleeding. Physical Exam General: Cooperative, overweight, healthy appearing, comfortable, no acute distress and well developed Orientation: Patient oriented x3 Limitations: No limitations Head: Normal to inspection Ears: Hearing grossly normal bilaterally, but a lot of ear wax present Nose: Normal external nose present Face and sinus: Normal facial exam Eyes: Appearance normal, both eyes and all related structures Neck: Normal visual inspection and Yes full ROM Respiratory: Normal respiratory effort and able to speak in complete sentences. Clear to auscultation bilaterally Cardiovascular: Irregular rhythm noted, atrial fibrillation present GI: Normal to inspection. Soft to palpation and nontender Skin: No rashes or lesions noted Neuro: Patient oriented x3 Extremities: Normal to inspection Results - Labs: Hemoglobin 13/40.4, normal platelet count, normal electrolytes. - Tests: Echocardiogram in April 2023. - Procedures: Colonoscopy (2019), Home sleep study (July 2019). Plan The care plan for this patient includes the continuation of current heart failure management as well as anticoagulation for atrial fibrillation with Coumadin. Blood pressure, heart rhythm irregularities, and fluid management are maintained through the ongoing use of metoprolol, torsemide, and Farxiga. Monitoring of anemia and irregular heart rhythm is necessary, with blood work and cardiac evaluations planned. Psychiatric support adjustment includes increasing fluoxetine to 40 mg daily to address emotional distress. Dietary counseling will address heartburn symptoms, with soda reduction recommended. The importance of consistent CPAP therapy for obstructive sleep apnea and regular follow-up with cardiology and nephrology specialists is emphasized. Patient was informed and verbally consented to the use of an ambient scribe for clinic note documentation during this visit. Discussion Notes During the visit, I discussed the management of chronic conditions such as atrial fibrillation and congestive heart failure, emphasizing the importance of medications like Coumadin for anticoagulation. I reviewed the need to address weight management given the recent weight gain. We explored psychiatric care, advising an increase in the fluoxetine dosage to 40 mg daily. For symptoms of heartburn, I recommended reducing soda intake. Diagnostic evaluations, including periodic echocardiograms, managing anemia with regular blood work, and routine visits to specialists, provide a comprehensive approach to his complex medical history. Communication with neurology, nephrology, and cardiology specialists is prioritized, and detailed instructions are given for ongoing health interventions. I advised follow-up discussions on the benefits of vaccination such as the shingles shot. Patient Instructions - Continue with current medications including metoprolol, torsemide, and Farxiga. - Follow anticoagulation therapy as prescribed with Coumadin. - Use albuterol inhaler as needed. - Continue CPAP therapy for obstructive sleep apnea. - Increase fluoxetine to 40 mg daily as discussed. - Maintain hydration and avoid NSAIDs. - Avoid excessive salt and soda consumption. - Ensure follow-up with cardiology and nephrology. - Complete scheduled blood work as requested. - Return for regular check-ups and consultations with specialists. Orders: Orders CA echo transthoracic complete Today I25.10 - Atherosclerotic heart disease of [place] coronary artery without angina pectoris Medications: Changed From fluoxetine 20 mg PO DAILY 90 caps 0RF To fluoxetine 40 mg PO DAILY 30 caps 3RF Quality Reporting (2019) Depression/Bipolar (159/160/161/177) PHQ-9: Total score: 27 Coding Level of Care Code Medicare Subsequent (G0439) Diagnoses Medicare annual wellness visit, subsequent Z00.00 Dilated cardiomyopathy I42.0 ICD (implantable cardioverter-defibrillator) in place Z95.810 CAD (coronary artery disease) I25.10 Mild episode of recurrent major depressive disorder F33.0 Active/Remission status: currently active Major depression episode severity: mild Major depression recurrence: recurrent Stage 3 chronic kidney disease, unspecified whether stage 3a or 3b CKD N18.30 Chronic kidney disease stage 3 subtype: unspecified whether 3a or 3b Acute on chronic congestive heart failure, unspecified heart failure type I50.9 Heart failure chronicity: acute on chronic Heart failure type: unspecified Persistent atrial fibrillation I48.19 Atrial fibrillation type: persistent (not longstanding) Chronic obstructive pulmonary disease, unspecified COPD type J44.9 COPD type: unspecified COPD Acquired hypothyroidism E03.9 Additional Codes HODA-7 Assessment Billing - HODA-7 Assessment Tool: HODA-7 Assessment 84963 ([id number]) PHQ-9 - 91055 - PHQ-9 Billing: Yes ([id number])
[2024-08-27 13:26] VITALS: BP 102/70; PULSE 56; O2SAT 97; BMI 26.8
--- OUTSIDE RECORDS SUMMARY | 2024-08-27 15:42 | XMS_ITS | Clinical Summary ---
Author Organization [facility] Facility Address [address] [address] Care Team Providers Care Integration Technician Name Role Phone Susan Dobbs MD Primary Care Provider [phone] Allergies Active Allergy Reactions Criticality Noted Date Comments Amiodarone 07/21/2021 Medications fluticasone-salm eterol (ADVAIR HFA) 230-21 MCG/ACT inhaler Inhale 02/12/2020 Act nadia albuterol HFA (PROVENTIL HFA;VENTOLIN HFA) 108 (90 Base) MCG/ACT inhaler Inhale 03/08/2020 Active levothyroxine (SYNTHROID, LEVOTHROID) 75 MCG tablet Take 75 mcg by mouth 11/16/2019 Active torsemide (DEMADEX) 20 MG tablet Take 20 mg by mouth 04/01/2020 Active warfarin (COUMADIN) 2.5 MG tablet Take 2.5 mg by mouth 03/15/2015 Active FLUoxetine (PROzac) 10 MG capsule Take 1 capsule by mouth 1 (one) time each day 02/01/2015 Active famotidine (PEPCID) 40 MG tablet Take 40 mg by mouth 02/26/2018 Active carvedilol (COREG) 25 MG tablet Take 1 tablet by mouth in the morning and 1 tablet in the evening. 02/14/2015 Active eplerenone (INSPRA) 25 MG tablet 07/19/2021 Active FLUoxetine (PROzac) 20 MG capsule Take by mouth 1 (one) time each day 04/27/2021 Active Jardiance 10 MG tablet Take 10 mg by mouth 1 (one) time each day 12/27/2021 Active valsartan (DIOVAN) 40 MG tablet Take 40 mg by mouth 1 (one) time each day 11/07/2021 Active Dapagliflozin Propanediol (Farxiga) 10 MG tablet Take 1 tablet by mouth 1 (one) time each day 10/18/2022 Active digoxin (LANOXIN) 125 MCG tablet Take 125 mcg by mouth 1 (one) time each day 10/31/2022 Active Active Problems Problem Noted Date Diagnosed Date Automatic implantable cardiac defibrillator in s itu 01/21/2023 Chronic kidney disease, stage 2 (mild) Cardiorenal syndrome 01/23/2022 Acute nontraumatic kidney injury 07/25/2021 Dilated cardiomyopathy 07/21/2021 Atrial fibrillation 07/21/2021 Ventricular tachycardia 07/21/2021 Hypothyroidism 07/21/2021 Obstructive sleep apnea syndrome 09/03/2013 Resolved Problems Problem Noted Date Diagnosed Date Resolved Date Hypothyroidism 07/21/2021 01/23/2022 Automatic defibrillator procedure 07/21/2021 01/21/2023 Overview (07/21/2021): Single chamber ICD [employer] Alfonso VR [id number] placed 04/02/2006 Cardiac murmur 07/21/2021 01/23/2022 Chest pain 07/21/2021 01/23/2022 Chronic kidney disease stage 3 07/21/2021 01/23/2022 Congestive heart failure 07/21/2021 Dysphagia 07/21/2021 01/23/2022 Hiatal hernia 07/21/2021 01/23/2022 Overview (07/21/2021): documented on Barium Swallow in 09/2012 in [facility] Syncope 07/21/2021 01/23/2022 Ventricular fibrillation 07/21/202104/2022 Overview (07/21/2021): ICD implanted Obstructive sleep apnea syndrome 07/21/2021 07/25/2021 Overview (07/21/2021): documented in sleep study 06/13/2006 Dilated cardiomyopathy 01/27/201407/25 Congestive heart failure 09/01/201304/2022 Immunizations Immunization Administration Dates Next Due Influenza Split High Dose Pr eservative Free IM 04/11/2016 Influenza Whole 02/19/2014, 2,04/27/2011,04/28,03/18/2009,02/20/2008,04/16/2007 Influenza, Unspecified 01/31/2013,04/06/2006 Pneumococcal Polysaccharide 10/14/2013, 1 Family History Medical History Relation Comments Kidney disease Father Kidney Cancer, n ephrectomy Kidney disease Sibling 1 two sisters - ki dney stones, brother - kidney stones Hypertension Sibling 2 two sisters Cancer Sibling 3 sister - ovarian Relation Status Comments Father Sibling 1 Sibling 2 Sibling 3 Social History Tobacco Use Types Packs/Day Years Used Date Smoking Tobacco: Never Smokeless Tobacco: Never Alcohol Use Standard Drinks/Week Comments Never 0 (1 standard drink = 0.6 oz pur e alcohol) Sex and Gender Information Value Date Recorded Sex Assigned at Not on file Legal Sex Male 5:20 PM EST Gender Identity Not on file Sexual Orientation Not on file Last Filed Vital Signs Vital Sign Reading Time Taken Comments Blood Pressure 90/62 01/22/2023 9:16 AM EDT Pulse 78 01/22/2023 9:16 AM EDT Temperature - - Respiratory Rate - - Oxygen Saturation 96% 01/22/2023 9:16 AM EDT Inhaled Oxygen Concentration - - Weight 73.5 kg (162 lb) 01/22/2023 9:16 AM EDT Height 179.1 cm (5' 10.5 ) 01/22/2023 9:16 AM ED T Body Mass Index 22.92 01/22/2023 9:16 AM EDT Plan of Treatment Health Maintenance Due Date Last Done Comments Colorectal Cancer Screening: Annual FOBT 2006 Colorectal Cancer Screening: Colonoscopy 2006 Colorectal Cancer Screening: Sigmoidoscopy 2006 Pneumococcal Vaccine: 50+ Years (3 of 3 - PCV) 10/14/2014 10/14/2013, 06/09/2010 Influenza Vaccine (Season Ended) 2025 02/24/2022, 04/11/2016, 02/19/2014, Additional history exists Pneumococcal Vaccine: Peds (0 to 5 Years) and At-Risk Patients (6 to 49 Years) Discontinued 10/14/2013, 06/09/2010 Hepatitis B Vaccine Aged Out No longe r eligible based on patient's age to complete this topic [place] [address] [place] [address] Care Teams Integration Technician Relationship Specialty Start Date End Date Susan Dobbs MD [facility] [place] [address] [id number] [place], [place] PCP - General Internal Medicine 01/22/23
== END 2024-08-27 14:19 | disposition home or self-care (01) ==
LOC: HO.HMCH 13:15
PROVIDERS: PCP Internal Medicine; Visit Provider Internal Medicine
DX: Z00.00 Encounter for general adult medical examination without abnormal findings (principal); I42.0 Dilated cardiomyopathy; F33.0 Major depressive disorder, recurrent, mild; N18.30 Chronic kidney disease, stage 3 unspecified; I50.9 Heart failure, unspecified; I48.19 Other persistent atrial fibrillation; J44.9 Chronic obstructive pulmonary disease, unspecified; Z95.810 Presence of automatic (implantable) cardiac defibrillator; I25.10 Atherosclerotic heart disease of native coronary artery without angina pectoris; E03.9 Hypothyroidism, unspecified

== ENCOUNTER → 2024-08-27 13:15 | Outpatient (BNVA) | payer MEDICARE, SELFPAY | PROVIDERS: PCP Internal Medicine; Visit Provider Internal Medicine | DX: Z00.00 Encounter for general adult medical examination without abnormal findings (principal); I42.0 Dilated cardiomyopathy; I25.10 Atherosclerotic heart disease of native coronary artery without angina pectoris; F33.0 Major depressive disorder, recurrent, mild; N18.30 Chronic kidney disease, stage 3 unspecified; I50.9 Heart failure, unspecified; I48.19 Other persistent atrial fibrillation; J44.9 Chronic obstructive pulmonary disease, unspecified; E03.9 Hypothyroidism, unspecified; Z79.01 Long term (current) use of anticoagulants; Z79.899 Other long term (current) drug therapy; Z95.810 Presence of automatic (implantable) cardiac defibrillator | CPT/HCPCS: 96127 ==

== ENCOUNTER → 2024-09-25 14:27 | Outpatient (REF) | payer MEDICARE, SELFPAY ==
--- NOTE | 2024-09-25 14:30 | CA_ITS ---
Transthoracic Echocardiogram Patient (Last, First, Middle): Jose Thorpe, Gender: Male Date of : 1955 Age: 69 Procedure Date: 09/25/2024 Procedure Type: Transthoracic Echocardiogram Location: OP Height: 170.18 cm Weight: 77.57 kg BSA: 1.89 m2 Heart Rate: bpm BP: 102 / 70 mmHg Captain Cannery Tender: SB/RC Referring MD: Susan Dobbs MD Foreign Banknote Teller Trader: Royal Dykes MD Symptoms: I25.10 - Atherosclerotic heart disease of [place] coronary artery without... Study Quality: Adequate ECG Rhythm: Atrial Fibrillation Conclusions: - 1. Moderately dilated left ventricle with severely reduced LV ejection fraction at 15-20% 2. Moderately dilated right ventricle 3. At least moderately dilated left atrium 4. Trace to mild aortic regurgitation and mild mitral regurgitation 5. Normal RV systolic pressure 6. No gross pericardial effusion Findings Left Ventricle Moderately increased left ventricular cavity size. There is normal left ventricular wall thickness. The left ventricular systolic function is severely decreased. The visually estimated ejection fraction is between 15 20%. Diastolic function is indeterminate on the basis of available data. Right Ventricle Moderately increased right ventricular cavity size. Atria The left atrium is moderately dilated. Interatrial shunt cannot be excluded. The right atrium is mildly dilated. Aortic Valve The aortic valve was not well visualized. There is mild calcification of the aortic valve. There is no aortic valve stenosis. There is trace (trivial) aortic valve regurgitation. Mitral Valve There is mild anterior and posterior mitral leaflet thickening. There is mild mitral annular calcification. There is mild mitral valve regurgitation. There is no mitral valve stenosis. Pulmonic Valve The pulmonic valve was not well visualized. Tricuspid Valve Likely normal tricuspid valve structure and function. There is mild tricuspid valve regurgitation. The right ventricular systolic pressure is normal. The right ventricular systolic pressure is 26 mmHg. Normal right atrial pressure. There is no evidence of pulmonary hypertension. Great Vessels All visible segments of the aorta are normal in size. The pulmonary artery was not well visualized. There is no dilatation of the ascending aorta measuring 3.40 cm. Venous The inferior vena cava is normal in size and collapses greater than 50% with inspiration. Pericardium/Pleural There is no evidence of pericardial effusion. Prior Study Comparison No significant change compared to prior study dated: 05/02/2023. Measurements 2D Linear Measurements IVSd: 1.28 0.6-0.9/0.6-1.0 cm LVIDd: 6.13 3.9-5.3/4.2-5.9 cm LVIDd Index: 3.24 2.4-3.2/2.2-3.1 cm/m2 LVIDs: 5.83 2.0-3.6 cm LVPWd: 0.88 0.7-1.1 cm LA Diam: 5.10 2.7-3.8/3.0-4.0 cm LAIDs Index: 2.70 1.5-2.3 cm/m2 LV Mass: 352.31 67-162/88-224 g LV Mass Index: 186.41 43-95/49-115 g/m2 LVOT Diam: 2.30 3.0+(-)1.3 cm 2D Systolic Function EF 4C: 7.76 >55% EF 2C: 24.50 >55% EF BiP: 16.90 >55% Mitral Valve MV Pk E: 0.67 Aortic Valve AoV Pk Freddie: 1.06 AoV Pk Grad: 4.00 BRITNEY: 2.64 LVOT LVOT Pk Freddie: 0.68 LVOT Mn Freddie: 0.37 LVOT VTI: 0.10 LVOT Pk Grad: 2.00 LVOT Mn Grad: 1.00 LVOT Diam: 2.30 LVOT Area: 4.15 Diastolic Function MV Pk E: 0.67 Tricuspid Valve TR Pk Freddie: 2.40 TR Pk Grad: 23.00 RA Press: 3.00 RVSP: 26.00 Great Vessels Aorta Sinus of Valsalva: 3.10 2.0-3.5 cm Ao Asc: 3.40 2.1-3.4 cm Pulmonary Valve PV Pk Freddie: 0.61 Peak PV Grad: 2.00 Updated in Other Vendor System with Status of Final Royal Dykes MD electronically signed on 09/25/2024 7:15:02 PM with status of Final
--- OUTSIDE RECORDS SUMMARY | 2024-09-25 15:03 | XMS_ITS | Clinical Summary ---
Author Organization [facility] Facility Address [address] [address] Care Team Providers Care Territory Sales Representative Name Role Phone Susan Dobbs MD Primary Care Provider [phone] Allergies Active Allergy Reactions Criticality Noted Date [...] patient's age to complete this topic [place] [address] [address] Care Teams Territory Sales Representative Relationship Specialty Start Date End Date Susan Dobbs MD [facility] [place] [address] [place], [place] PCP - General Internal Medicine 01/22/23
== END ==
LOC: HO.CARD 14:27
PROVIDERS: PCP Internal Medicine; Visit Provider Internal Medicine
DX: I25.10 Atherosclerotic heart disease of native coronary artery without angina pectoris (principal)
CPT/HCPCS: 93306

== ENCOUNTER → 2024-09-25 14:30 | Outpatient (BNV) | payer MEDICARE, SELFPAY | PROVIDERS: PCP Internal Medicine; Visit Provider Internal Medicine Cardiovascular Disease | DX: I34.0 Nonrheumatic mitral (valve) insufficiency (principal); I35.1 Nonrheumatic aortic (valve) insufficiency | CPT/HCPCS: 93306 ==

== ENCOUNTER 2024-10-22 14:07 | Outpatient (AMB) | payer MEDICARE, SELFPAY ==
--- NOTE | 2024-10-22 14:13 | A.OFFPC_ITS ---
Vital Signs 10/22/24 14:14 Height 5 ft 7 in Weight 168 lb 2 oz BMI 26.3 BP 130/70 Blood Pressure Location Lt brachial Position Sitting Pulse 94 Pulse Source Pulse Oximeter Temp 97.3 F Temp Source Temporal Artery Scan Pulse Oximetry (%) 98 Oxygen Delivery Method Room Air Intake Visit Reasons: headaches diarrhea Intake Note: Patient is here to follow up on Headaches and Diarrhea. Laundry Supervisor Required: No Geographic Information Scientist: Not Required per policy Accompanied by: Self / Same As Patient Allergies No Known Allergies Allergy (Verified 10/22/24 14:14) Tobacco use date assessed: 10/22/24 Fall risk assessment: No Falls in past year Last assessed Fall Risk: 10/22/24 Dental Screening Dental Screen Date: 05/23/24 HPI headaches diarrhea HPI Details last sunday diarrhea and nausea, still . , no particular cough , tough moist, PFSH Medical History (Updated 10/22/24 @ 15:08 by Susan Dobbs MD) Hypothyroidism Afib Acquired hypothyroidism Chronic kidney disease, stage III (moderate) Atrial fibrillation Antecollis Poor balance Subdural fluid collection Cervicogenic headache 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 Sister Ovarian cancer Social History Household Members: Spouse Housing: Apartment Are you a primary hospice care sales consultant to a significant other at home: No Do you presently have visiting nurse or other home services: Yes (A ([facility])) Alcohol intake: never Patient Tobacco Use Status: Never used Tobacco e-Cigarette/Vaping Use: Never Used Second Hand Smoke Exposure: No service: No Current occupational status: retired Cognitive needs: No Hearing needs: No Vision needs: No Questionnaire Thrive Questionnaire Date Thrive assessed: 05/23/24 HODA-7 AMB Questionnaire HODA-7 Date HODA - 7 assessed: 08/27/24 Source: Developed by Drs. Lukas Esquivel, Elizabeth Cortes, Severiano Feliciano and colleagues, with an educational yang from [employer]. Physical exam (Primary Care) Vital Signs: Last Vital Signs Temp 97.3 F 10/22/24 14:14 Pulse 94 10/22/24 14:14 BP 130/70 10/22/24 14:14 Pulse Ox 98 10/22/24 14:14 Oxygen Delivery Method Room Air 10/22/24 14:14 BMI result Body Mass Index 26.3 Tobacco/Smoking Status: Tobacco use Status Tobacco use date assessed 10/22/24 10/22/24 14:38 Patient Tobacco Use Status Never used Tobacco 10/22/24 14:38 e-Cigarette/Vaping Use Never Used 10/22/24 14:38 Thrive Assessment: Date of Thrive Assessment Date Thrive assessed 05/23/24 10/22/24 14:38 Const General: alert; No acute distress Eyes Conjunctivae: conjunctivae normal Neck Other: moist tongue, abdomen no hyperactive bowel sounds, soft, no guarding Resp Auscultation: clear to auscultation bilaterally Cardio Rate: regular rate Rhythm: regular rhythm GI Inspection: Yes normal to inspection Extrem General: Yes normal to inspection and No edema Coding Level of Care Code Est Pt Level 4 (15824) Complex EM visit Add On G2211 Diagnoses CAD (coronary artery disease) I25.10 Dilated cardiomyopathy I42.0 Acute on chronic congestive heart failure, unspecified heart failure type I50.9 Heart failure chronicity: acute on chronic Heart failure type: unspecified ICD (implantable cardioverter-defibrillator) in place Z95.810 Stage 3 chronic kidney disease, unspecified whether stage 3a or 3b CKD N18.30 Chronic kidney disease stage 3 subtype: unspecified whether 3a or 3b Chronic obstructive pulmonary disease, unspecified COPD type J44.9 COPD type: unspecified COPD Persistent atrial fibrillation I48.19 Atrial fibrillation type: persistent (not longstanding) Acute gastroenteritis K52.9 Assessment & Plan Assessment & Plan (1) CAD (coronary artery disease): Comment: Dr. Quezada Code(s): I25.10 - Atherosclerotic heart disease of [place] coronary artery without angina pectoris Category: Medical Plan: Control the cholesterol, weight, blood pressure patient is on Coumadin (2) Dilated cardiomyopathy: Comment: Echocardiogram April 2023 [facility] fraction [facility], September [facility]24 echocardiogram 15 20% Code(s): I42.0 - Dilated cardiomyopathy Category: Medical Plan: Advised to continue follow-up with cardiology patient is on torsemide Farxiga and metoprolol (3) CHF (congestive heart failure): Comment: Class 3 hospitalized 11/2019 reduced ejection fraction, 04/2023 10-15% Dr. Quezada Code(s): I50.9 - Heart failure, unspecified Category: Medical Qualifiers: Heart failure chronicity: acute on chronic Heart failure type: unspecified Qualified Code(s): I50.9 - Heart failure, unspecified Plan: Weigh daily, continue with metoprolol and torsemide and Farxiga (4) ICD (implantable cardioverter-defibrillator) in place: Code(s): Z95.810 - Presence of automatic (implantable) cardiac defibrillator Category: Medical Plan: Continue to follow up with Cardiology (5) CKD (chronic kidney disease) stage 3, GFR 30-59 ml/min: Code(s): N18.30 - Chronic kidney disease, stage 3 unspecified Category: Medical Qualifiers: Chronic kidney disease stage 3 subtype: unspecified whether 3a or 3b Qualified Code(s): N18.30 - Chronic kidney disease, stage 3 unspecified Plan: Continue to monitor. (6) COPD (chronic obstructive pulmonary disease): Comment: per H&P-patient denies Code(s): J44.9 - Chronic obstructive pulmonary disease, unspecified Category: Medical Qualifiers: COPD type: unspecified COPD Qualified Code(s): J44.9 - Chronic obstructive pulmonary disease, unspecified Plan: Patient on Advair (7) Atrial fibrillation: Comment: Dr. Quezada Code(s): I48.91 - Unspecified atrial fibrillation Category: Medical Qualifiers: Atrial fibrillation type: persistent (not longstanding) Qualified Code(s): I48.19 - Other persistent atrial fibrillation Plan: Continue with anticoagulation (8) Acute gastroenteritis: Code(s): K52.9 - Noninfective gastroenteritis and colitis, unspecified Category: Medical Plan History of Present Illness The patient is a 69-year-old male presenting with nausea and diarrhea. He describes the onset of symptoms last Sunday, with diarrhea occurring three times daily, notable nausea, and poor food retention leading to a 5-pound weight loss. He denies any associated abdominal pain but reports a low-grade fever and continuous intermittent cough. He last urinated in the morning and acknowledges reduced fluid intake, raising concerns of potential dehydration. The patient suspects dietary indiscretion as the precipitating factor, notably after consuming tuna and macaroni salad. Additionally, his medical history is significant for notably low ejection fraction due to dilated cardiomyopathy, requiring regular follow-up with cardiology. Other health history includes coronary artery disease, chronic kidney disease, major depressive disorder, and chronic obstructive pulmonary disease (COPD). Health Maintenance - Continued monitoring and follow-up with cardiology for heart-related conditions. - Discussion of regular fluid intake to avoid dehydration. - Recommendation for COVID-19 vaccination booster if not updated in the last six months. Social History - Exercises by walking daily, accompanied by a dog. - Possible exposure to outdoor elements influencing health considerations. Review of Systems - Gastrointestinal: Reports diarrhea and nausea. Denies abdominal pain. - General: Reports fever last Sunday. - Respiratory: Reports intermittent cough. - Urinary: Denies recent frequent urination (last urination in the morning). Physical Exam - General- Moist tongue indicating adequate hydration status. - Abdomen- No pain elicited on examination. Results - Labs: Prior hemoglobin indicated anemia at levels of 10.5. - Echocardiogram: Severely reduced ejection fraction at 15-20% with moderate dilation of cardiac chambers and trace valvular regurgitation. Plan Fluid intake must be prioritized for the present nausea and diarrhea, with recommendations to include Gatorade for ongoing replacement if necessary. Anti- nausea medication will be provided for symptomatic relief, and stool testing will be pursued if diarrhea does not resolve. Continuity of care with cardiology remains crucial, especially considering the patient's cardiac history with low ejection fraction and an ICD in place. I encourage the patient to maintain adherence to all cardiac medications including metoprolol, torsemide, and Farxiga, and to avoid environments that could exacerbate heart failure symptoms, such as hot weather and high-sodium meals. Patient was informed and verbally consented to the use of an ambient scribe for clinic note documentation during this visit. Discussion Notes During our consultation, I explained the significance of adequate hydration, particularly given the patient's cardiac and renal status, to circumvent dehydration. The implications of consuming potentially triggering foods were also discussed, advising dietary prudence to prevent similar episodes in the future. Attention was focused on ongoing cardiac care, emphasizing the necessity of compliance with prescribed medications and routine cardiologic evaluations. I assured the patient of the utility of anti-nausea agents while reinforcing the need for a methodical diagnostic approach should symptoms persist. Lastly, we discussed flu and COVID-19 preventive measures pertinent to his health status, concluding with recommendations to minimize exposure to infectious environments. Patient Instructions - Increase water intake and use Gatorade if diarrhea continues for fluid replacement. - Avoid caffeinated and high-salt drinks such as Coke while sick. - Monitor diarrhea; if it continues, plan for a stool test. - Continue taking prescribed medications for heart and lung conditions. - Stay in cool, shaded areas to avoid overheating. - Avoid exposure to people who are sick. - Schedule cardiology follow-up as instructed. - Maintain a low-salt diet to support heart health. Orders: Orders Ova and Parasite Today K52.9 - Noninfective gastroenteritis and colitis, unspecified Comprehensive Met. Panel Today K52.9 - Noninfective gastroenteritis and colitis, unspecified Leukocytes Stool Qualitative Today K52.9 - Noninfective gastroenteritis and colitis, unspecified Magnesium Today K52.9 - Noninfective gastroenteritis and colitis, unspecified Complete Blood Count Auto Diff Today K52.9 - Noninfective gastroenteritis and colitis, unspecified Medications: New ondansetron HCl 4 mg PO Q8H PRN 10 tabs 0RF nausea and vomiting K52.9 - Noninfective gastroenteritis and colitis, unspecified
[2024-10-22 14:14] VITALS: BP 130/70; PULSE 94; TEMP 36.3; O2SAT 98; BMI 26.3
--- OUTSIDE RECORDS SUMMARY | 2024-10-22 16:12 | XMS_ITS | Clinical Summary ---
Author Organization [facility] Facility Address [address] [address] Care Team Providers Care Probation Supervisor Name Role Phone Susan Dobbs MD Primary Care Provider [phone] Allergies Active Allergy Reactions Criticality Noted Date [...] patient's age to complete this topic [place] [address] [place] [address] Care Teams Probation Supervisor Relationship Specialty Start Date End Date Susan Dobbs MD [facility] [place] [address] [place], [place] PCP - General Internal Medicine 01/22/23
== END 2024-10-22 15:14 | disposition home or self-care (01) ==
LOC: HO.HMCH 14:07
PROVIDERS: PCP Internal Medicine; Visit Provider Internal Medicine
DX: I25.10 Atherosclerotic heart disease of native coronary artery without angina pectoris (principal); I42.0 Dilated cardiomyopathy; I50.9 Heart failure, unspecified; N18.30 Chronic kidney disease, stage 3 unspecified; J44.9 Chronic obstructive pulmonary disease, unspecified; I48.19 Other persistent atrial fibrillation; Z95.810 Presence of automatic (implantable) cardiac defibrillator; K52.9 Noninfective gastroenteritis and colitis, unspecified

== ENCOUNTER → 2024-10-22 14:07 | Outpatient (BNVA) | payer MEDICARE, SELFPAY | PROVIDERS: PCP Internal Medicine; Visit Provider Internal Medicine | DX: I42.0 Dilated cardiomyopathy (principal); R51.9 Headache, unspecified; I25.10 Atherosclerotic heart disease of native coronary artery without angina pectoris; I50.9 Heart failure, unspecified; N18.30 Chronic kidney disease, stage 3 unspecified; J44.9 Chronic obstructive pulmonary disease, unspecified; I48.19 Other persistent atrial fibrillation; K52.9 Noninfective gastroenteritis and colitis, unspecified; Z95.810 Presence of automatic (implantable) cardiac defibrillator | CPT/HCPCS: 99212 ==

== ENCOUNTER 2024-10-31 11:51 | Outpatient (AMB) | payer MEDICARE, SELFPAY ==
--- NOTE | 2024-10-31 11:53 | MHC.OFFVIS ---
Intake Visit Reasons: Elevated PSA Intake Note: Patient is present for ELEVATED PSA Urology Medication:NONE Antibiotic Allergy:NONE Blood Thinner:WARFARIN Pulping Machine Operator Required: No Allergies No Known Allergies Allergy (Verified 10/31/24 11:59) HPI Comments Details: Markel is a pleasant male. He is a patient of Dr. Dobbs. He seen for the following urologic conditions - elevated PSA Elevated PSA PSA 09/05 31 Setting of diabetes Prostate boggy may have component of prostatitis, small right base nodule 2 weeks antibiotics, 4 week PSA, 6 week follow-up [facility] Medical History (Updated 10/22/24 @ 15:08 by Susan Dobbs MD) Hypothyroidism Afib Acquired hypothyroidism Chronic kidney disease, stage III (moderate) Atrial fibrillation Antecollis Poor balance Subdural fluid collection Cervicogenic headache 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 Sister Ovarian cancer Social History Household Members: Spouse Housing: Apartment Are you a primary pet care technician to a significant other at home: No Do you presently have visiting nurse or other home services: Yes ([facility] ([facility])) Alcohol intake: never Patient Tobacco Use Status: Never used Tobacco e-Cigarette/Vaping Use: Never Used Second Hand Smoke Exposure: No service: No Current occupational status: retired Cognitive needs: No Hearing needs: No Vision needs: No Review of Systems Const Denies chills and Denies fever(s) Card Reports no additional complaints and Denies syncope Resp Denies cough GI Denies abdominal pain and Denies heartburn Reports as per HPI and Denies change in libido Neuro Denies syncope Psych Denies change in libido Endo Denies change in libido Physical Exam Const General: cooperative, healthy appearing, comfortable and no acute distress Orientation/consciousness: patient oriented x3 HEENT Face and sinus: Yes normal facial exam Mouth: moist mucous membranes Neck Neck: Yes normal visual inspection, Yes full ROM and Yes trachea midline Chest Chest palpation & inspection: normal inspection of the chest Resp Effort & Inspection: normal respiratory effort, able to speak in complete sentences and no respiratory distress GI Inspection: Yes normal to inspection Rectal Exam - Male: Yes normal sphincter tone and Yes prostate normal Male General Exam: Yes normal external exam Penis: normal penis and circumcised Meatus: meatus normal Scrotum: scrotum normal Testes: Testes normal Back/Spine/Pelvis Cervical Spine: normal cervical lordosis Thoracic/Lumbar Spine: thoracic and lumbar spine normal to inspection Skin General skin exam: no rashes or lesions noted Neuro General: patient oriented x3, gait normal, tone normal and moves all extremities Extrem General: Yes normal to inspection and Yes capillary refill normal Results AMB Urinalysis, Automated UA Leukoctes 0 Leonard/uL Last Edit by ELLIOT Machado on 10/31/24 13:15 UA Nitrite Negative Last Edit by ELLIOT Machado on 10/31/24 13:15 UA Urobilinogen 0.2 mg/dL Last Edit by ELLIOT Machado on 10/31/24 13:15 UA Protein 15 mg/dL Last Edit by ELLIOT Machado on 10/31/24 13:15 UA pH 6.0 Last Edit by ELLIOT Machado on 10/31/24 13:15 UA Blood 25 Felix/uL Last Edit by ELLIOT Machado on 10/31/24 13:15 UA Specific [place] 1.015 Last Edit by ELLIOT Machado on 10/31/24 13:15 UA Ketone Negative Last Edit by ELLIOT Machado on 10/31/24 13:15 UA Bilirubin 0 mg/dL Last Edit by ELLIOT Machado on 10/31/24 13:15 UA Glucose 500 mg/dL Last Edit by ELLIOT Machado on 10/31/24 13:15 Results Reviewed Results Reviewed: Laboratory Last Values Urine pH (Auto) 6.0 10/31/24 13:15 Specific [place] (Auto) 1.015 10/31/24 13:15 Urine Protein (Auto) 15 mg/dL 10/31/24 13:15 Glucose (UA)(Auto) 500 mg/dL 10/31/24 13:15 Urine Ketones (Auto) Negative 10/31/24 13:15 Urine Blood (Auto) 25 Felix/uL 10/31/24 13:15 Urine Nitrite (Auto) Negative 10/31/24 13:15 Urine Bilirubin (Auto) 0 mg/dL 10/31/24 13:15 Urine Urobilinogen (Auto) 0.2 mg/dL 10/31/24 13:15 Leukocyte Esterase (Auto) 0 Leonard/uL 10/31/24 13:15 Assessment & Plan Assessment & Plan (1) PSA elevation: Code(s): R97.20 - Elevated prostate specific antigen [PSA] Category: Medical Plan Antibiotics, repeat PSA Orders: Orders AMB Urinalysis Automated 10/31/24 Z13.9 - Encounter for screening, unspecified Patient Instructions: This note is constructed using voice recognition software. While every effort has been made to ensure accuracy allergy specialist errors may have been included. Imaging studies, laboratory and physical exam results were discussed and reviewed in detail. No major barriers to patient understanding were identified. An opportunity to ask questions regarding the treatment plan was provided. All questions were answered. The patient expressed understanding and agreement with the above treatment plan. The patient is aware they should contact our office by phone for worsening of their current condition or the appearance of new urologic symptoms. Compliance is encouraged with any medications and followup testing that is ordered. It is a privilege to participate in the urologic care of your patient. If you have any questions or concerns regarding treatment for the above conditions, or other urologic issues, please do not hesitate to contact me. The office telephone contact is [phone]. Sincerely, Dr Eh Kelly MD, [facility] - Urology Compassionate Specialist Care for the Genitourinary System Coding Level of Care Code New Pt Level 4 (79691) Diagnoses PSA elevation R97.20
--- OUTSIDE RECORDS SUMMARY | 2024-10-31 12:07 | XMS_ITS | Clinical Summary ---
Author Organization [facility] Facility Address [address] [address] Care Team Providers Care Pipe Organ Installer Name Role Phone Susan Dobbs MD Primary Care Provider [phone] Allergies Active Allergy Reactions Criticality Noted Date [...] patient's age to complete this topic Insurance [place] [address] Care Teams Pipe Organ Installer Relationship Specialty Start Date End Date Susan Dobbs MD [facility] [place] [address] [place], [place] PCP - General Internal Medicine 01/22/23
== END 2024-10-31 12:18 | disposition home or self-care (01) ==
LOC: HO.HUSH 11:51
PROVIDERS: PCP Internal Medicine; Visit Provider Urology
DX: R97.20 Elevated prostate specific antigen [PSA] (principal)
CPT/HCPCS: 99204

== ENCOUNTER → 2024-10-31 11:51 | Outpatient (BNVA) | payer MEDICARE, SELFPAY | PROVIDERS: PCP Internal Medicine; Visit Provider Urology | DX: R97.20 Elevated prostate specific antigen [PSA] (principal) | CPT/HCPCS: 81003; 99202 ==

== ENCOUNTER 2024-12-01 15:03 | Outpatient (AMB) | payer MEDICARE, SELFPAY ==
[2024-12-01 15:04] VITALS: BP 134/78; PULSE 107; TEMP 36.2; O2SAT 98; BMI 26.5
--- NOTE | 2024-12-01 15:04 | A.OFFPC_ITS ---
Vital Signs 12/01/24 15:04 Height 5 ft 7 in Weight 169 lb BMI 26.5 BP 134/78 Blood Pressure Location Lt brachial Position Sitting Pulse 107 H Pulse Source Pulse Oximeter Temp 97.1 F Temp Source Temporal Artery Scan Pulse Oximetry (%) 98 Oxygen Delivery Method Room Air Intake Visit Reasons: Congestive heart failure Accompanied by: stepson Allergies No Known Allergies Allergy (Verified 12/01/24 15:06) Tobacco use date assessed: 12/01/24 Fall risk assessment: No Falls in past year Last assessed Fall Risk: 12/01/24 Dental Screening Dental Screen Date: 12/01/24 Did you have a dental visit in the last 12 months?: No Did you have a dental problem in the last 6 months where you did not have access to dental care?: No Was dental information given to patient?: Patient declined [facility] Medical History Hypothyroidism Afib Acquired hypothyroidism Chronic kidney disease, stage III (moderate) Atrial fibrillation Antecollis Poor balance Subdural fluid collection Cervicogenic headache 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 Sister Ovarian cancer Social History Household Members: Spouse Housing: Apartment Are you a primary healthcare corporate account director to a significant other at home: No Do you presently have visiting nurse or other home services: Yes (A ([facility])) Alcohol intake: never Patient Tobacco Use Status: Never used Tobacco e-Cigarette/Vaping Use: Never Used Second Hand Smoke Exposure: No service: No Current occupational status: retired Cognitive needs: No Hearing needs: No Vision needs: No Questionnaire PHQ-9 Over the last 2 weeks, how often have you been bothered by any of the following problems? 1. Little interest or pleasure in doing things: not at all 2. Feeling down, depressed, or hopeless: not at all 3. Trouble falling or staying asleep, or sleeping too much: not at all 4. Feeling tired or having little energy: not at all 5. Poor appetite or overeating: not at all 6. Feeling bad about yourself - or that you are a failure or have let yourself or your family down: not at all 7. Trouble concentrating on things, such as reading the newspaper or watching television: not at all 8. Moving or speaking so slowly that other people could have noticed. Or the opposite - being so fidgety or restless that you have been moving around a lot more than usual: not at all 9. Thoughts that you would be better off or of hurting yourself in some way: not at all Total score: 0 Source: Developed by Drs. Lukas Esquivel, Elizabeth Cortes, Severiano Feliciano and colleagues, with an educational yang from [employer]. Thrive Questionnaire Date Thrive assessed: 05/23/24 I am a: Patient What is your living situation today?: I have a steady place to live Within the past 12 months, did the food you bought not last and you didn't have the money to get more?: Never true Within the past 12 months, did you worry whether your food would run out before you got money to buy more?: Never true Do you have trouble paying for medicines?: No Do you have trouble getting transportation to medical appointments?: No Do you have trouble paying your heating and electricity bill?: No Do you have trouble taking care of your child, family member or friend?: No Do you have trouble with day-to-day activities such as bathing, preparing meals, shopping, managing finances, etc.?: No Are you currently unemployed and looking for a job?: No Are you interested in more education?: No Please select the resources that you would like help with: None Currently or been in a relationship where the following occur: No concerns reported THRIVE Score: 0 AUDIT C Alcohol Use Questionnaire (AUDIT-C) 1. How often do you have a drink containing alcohol?: Never 3. How often do you have six or more drinks on one occasion?: Never Total Score: 0 HODA-7 AMB Questionnaire HODA-7 Date HODA - 7 assessed: 08/27/24 Feeling nervous, anxious, or on edge: 0 = Not at all Not being able to stop or control worryin = Not at all Worrying too much about different things: 0 = Not at all Trouble relaxin = Not at all Being so restless that it is hard to sit still: 0 = Not at all Becoming easily annoyed or irritable: 0 = Not at all Feeling afraid as if something awful might happen: 0 = Not at all Total HODA-7 score (0-4 normal; 5-9 mild; 10-14 moderate; 15-21 severe): 0 Source: Developed by Drs. Lukas Esquivel, Elizabeth Cortes, Severiano Feliciano and colleagues, with an educational yang from [employer]. Physical exam (Primary Care) Vital Signs: Last Vital Signs Temp 97.1 F 12/01/24 15:04 Pulse 107 H 12/01/24 15:04 BP 134/78 12/01/24 15:04 Pulse Ox 98 12/01/24 15:04 Oxygen Delivery Method Room Air 12/01/24 15:04 BMI result Body Mass Index 26.5 Tobacco/Smoking Status: Tobacco use Status Tobacco use date assessed 12/01/24 12/01/24 15:10 Patient Tobacco Use Status Never used Tobacco 12/01/24 15:10 e-Cigarette/Vaping Use Never Used 12/01/24 15:10 PHQ-9: PHQ-9 Score PHQ-9: Total score 0 12/01/24 15:15 Thrive Assessment: Date of Thrive Assessment Date Thrive assessed 05/23/24 12/01/24 15:10 Currently or been in a relationship where the following occur: No concerns reported Const General: alert; No acute distress Eyes Conjunctivae: conjunctivae normal Resp Auscultation: clear to auscultation bilaterally Cardio Rate: regular rate Rhythm: regular rhythm GI Inspection: Yes normal to inspection Extrem General: Yes normal to inspection and No edema Coding Level of Care Code Est Pt Level 4 (70955) Complex EM visit Add On G2211 Diagnoses Acute on chronic congestive heart failure, unspecified heart failure type I50.9 Heart failure chronicity: acute on chronic Heart failure type: unspecified Dilated cardiomyopathy I42.0 ICD (implantable cardioverter-defibrillator) in place Z95.810 Persistent atrial fibrillation I48.19 Atrial fibrillation type: persistent (not longstanding) Acquired hypothyroidism E03.9 Stage 3 chronic kidney disease, unspecified whether stage 3a or 3b CKD N18.30 Chronic kidney disease stage 3 subtype: unspecified whether 3a or 3b Chronic obstructive pulmonary disease, unspecified COPD type J44.9 COPD type: unspecified COPD Mild episode of recurrent major depressive disorder F33.0 Active/Remission status: currently active Major depression episode severity: mild Major depression recurrence: recurrent PSA elevation R97.20 Anemia D64.9 Assessment & Plan Assessment & Plan (1) CHF (congestive heart failure): Comment: Class 3 hospitalized 11/2019 reduced ejection fraction, 04/2023 10-15% Dr. Quezada Code(s): I50.9 - Heart failure, unspecified Category: Medical Qualifiers: Heart failure chronicity: acute on chronic Heart failure type: unspecified Qualified Code(s): I50.9 - Heart failure, unspecified Plan: PATIENT IS ON FARXIGA TORSEMIDE. ADVISED TO MONITOR WEIGHT (2) Dilated cardiomyopathy: Comment: Echocardiogram April 2023 ejection fraction 10%[facility], September 2024 echocardiogram 15 20% Code(s): I42.0 - Dilated cardiomyopathy Category: Medical Plan: Continuing to follow up with Cardiology patient has the ICD. (3) ICD (implantable cardioverter-defibrillator) in place: Code(s): Z95.810 - Presence of automatic (implantable) cardiac defibrillator Category: Medical (4) Atrial fibrillation: Comment: Dr. Quezada Code(s): I48.91 - Unspecified atrial fibrillation Category: Medical Qualifiers: Atrial fibrillation type: persistent (not longstanding) Qualified Code(s): I48.19 - Other persistent atrial fibrillation Plan: Continue with Coumadin anticoagulation on metoprolol 25 mg once a day (5) Acquired hypothyroidism: Code(s): E03.9 - Hypothyroidism, unspecified Category: Medical Plan: Patient was advised to repeat thyroid test as the TSH in the last blood work was elevated (6) CKD (chronic kidney disease) stage 3, GFR 30-59 ml/min: Code(s): N18.30 - Chronic kidney disease, stage 3 unspecified Category: Medical Qualifiers: Chronic kidney disease stage 3 subtype: unspecified whether 3a or 3b Qualified Code(s): N18.30 - Chronic kidney disease, stage 3 unspecified Plan: Continue to be well hydrated avoiding NSAIDs (7) COPD (chronic obstructive pulmonary disease): Comment: per H&P-patient denies Code(s): J44.9 - Chronic obstructive pulmonary disease, unspecified Category: Medical Qualifiers: COPD type: unspecified COPD Qualified Code(s): J44.9 - Chronic obstructive pulmonary disease, unspecified Plan: Patient is on Advair and to use albuterol as needed (8) MDD (major depressive disorder): Comment: counselling and therapy [facility] CHD Code(s): F32.9 - Major depressive disorder, single episode, unspecified Category: Medical Qualifiers: Active/Remission status: currently active Major depression episode severity: mild Major depression recurrence: recurrent Qualified Code(s): F33.0 - Major depressive disorder, recurrent, mild Plan: Continue with counseling and therapy (9) PSA elevation: Code(s): R97.20 - Elevated prostate specific antigen [PSA] Category: Medical (10) Anemia: Code(s): D64.9 - Anemia, unspecified Category: Medical Plan History of Present Illness The patient is a 69-year-old male presenting for follow-up of multiple chronic conditions including coronary artery disease, congestive heart failure, and hypothyroidism. The patient has a history of coronary artery disease and congestive heart failure, managed with an implantable cardioverter-defibrillator (ICD). He continues to follow up with cardiology, and his ICD has not fired recently. The patient also has a history of major depressive disorder and is continuing with counseling and therapy. Chronic kidney disease is present, but recent blood work showed normal kidney function and electrolytes. The patient has chronic obstructive pulmonary disease (COPD) and is on Advair with albuterol as needed. Hypothyroidism is being monitored, with a recent elevation in TSH noted, prompting a repeat thyroid test. The patient follows up with urology for PSA elevation and was found to have prostatitis, for which antibiotics were prescribed. Health Maintenance - PSA monitoring for prostate health - Repeat thyroid function test due to elevated TSH - Counseling and therapy for major depressive disorder - Shingles vaccination discussed Social History Review of Systems - Cardiovascular: Denies leg swelling Physical Exam Results - Labs: Normal blood count, normal platelets, normal kidney function, normal electrolytes, elevated TSH, LDL 51, HDL 47, normal ferritin Plan The patient will continue to follow up with cardiology to monitor the ICD and manage coronary artery disease and congestive heart failure. For chronic kidney disease, the patient is advised to maintain hydration and avoid NSAIDs. The patient will continue using Advair and albuterol for COPD management. A repeat thyroid function test is necessary due to elevated TSH levels, and the patient should continue thyroid medication. For prostatitis, the patient was prescribed antibiotics and will continue PSA monitoring with urology. The patient is encouraged to continue counseling and therapy for major depressive disorder. Shingles vaccination was discussed as a preventative measure. Patient was informed and verbally consented to the use of an ambient scribe for clinic note documentation during this visit. Discussion Notes I discussed with the patient the importance of continuing follow-up with cardiology to monitor the ICD and manage coronary artery disease and congestive heart failure. We reviewed the need for maintaining hydration and avoiding NSAIDs to manage chronic kidney disease. The patient was advised to continue using Advair and albuterol for COPD management. I emphasized the necessity of a repeat thyroid function test due to elevated TSH levels and the continuation of thyroid medication. We discussed the treatment of prostatitis with antibiotics and the importance of ongoing PSA monitoring with urology. The patient is encouraged to continue counseling and therapy for major depressive disorder. We also discussed the shingles vaccination as a preventative measure. Patient Instructions - Continue follow-up with cardiology for ICD monitoring. - Maintain hydration and avoid NSAIDs for kidney health. - Use Advair and albuterol as prescribed for COPD. - Repeat thyroid function test as advised. - Continue PSA monitoring and follow-up with urology. - Attend counseling and therapy sessions regularly. - Consider shingles vaccination as discussed.
--- OUTSIDE RECORDS SUMMARY | 2024-12-01 15:45 | XMS_ITS | Clinical Summary ---
Author Organization [facility] Facility Address [address] [address] Care Team Providers Care Supervisor Receiving And Processing Name Role Phone Susan Dobbs MD Primary Care Provider [phone] Allergies Active Allergy Reactions Criticality Noted Date [...] - PCV) 10/14/2014 10/14/2013, 06/09/2010 Influenza Vaccine (#1) 2025 2, 04/11/2016, 02/19/2014, Additional history exists Pneumococcal Vaccine: Peds (0 to 5 Years) and At-Risk Patients (6 to 49 Years) Discontinued 10/14/2013, 06/09/2010 Hepatitis B Vaccine Aged Out No longe r eligible based on patient's age to complete this topic Insurance [place] [address] Care Teams Supervisor Receiving And Processing Relationship Specialty Start Date End Date Susan Dobbs MD [facility] [place] [address] [place], [place] PCP - General Internal Medicine 01/22/23
== END 2024-12-01 15:27 | disposition home or self-care (01) ==
LOC: HO.HMCH 15:04
PROVIDERS: PCP Internal Medicine; Visit Provider Internal Medicine
DX: I50.9 Heart failure, unspecified (principal); N18.30 Chronic kidney disease, stage 3 unspecified; I42.0 Dilated cardiomyopathy; I48.19 Other persistent atrial fibrillation; J44.9 Chronic obstructive pulmonary disease, unspecified; Z95.810 Presence of automatic (implantable) cardiac defibrillator; E03.9 Hypothyroidism, unspecified; F33.0 Major depressive disorder, recurrent, mild; R97.20 Elevated prostate specific antigen [PSA]; D64.9 Anemia, unspecified

== ENCOUNTER → 2024-12-01 15:03 | Outpatient (BNVA) | payer MEDICARE, SELFPAY | PROVIDERS: PCP Internal Medicine; Visit Provider Internal Medicine | DX: I42.0 Dilated cardiomyopathy (principal); I50.9 Heart failure, unspecified; I48.19 Other persistent atrial fibrillation; E03.9 Hypothyroidism, unspecified; N18.30 Chronic kidney disease, stage 3 unspecified; J44.9 Chronic obstructive pulmonary disease, unspecified; F33.0 Major depressive disorder, recurrent, mild; R97.20 Elevated prostate specific antigen [PSA]; D64.9 Anemia, unspecified; Z95.810 Presence of automatic (implantable) cardiac defibrillator | CPT/HCPCS: 96127; 99212 ==

== ENCOUNTER 2024-12-17 14:25 | Outpatient (AMB) | payer MEDICARE, SELFPAY ==
--- NOTE | 2024-12-17 14:25 | MHC.OFFVIS ---
Intake Visit Reasons: 6WK follow up/ PSA Intake Note: Patient is present for TELEHEALTH Labs done:12/05/2024 PSA 33.6 Urology Medication:NONE Antibiotic Allergy:NONE Blood Thinner:WARFARIN Administrative Services Coordinator Required: No Accompanied by: Self / Same As Patient Allergies No Known Allergies Allergy (Verified 12/17/24 14:26) HPI Comments Details: Markel is a pleasant male. He is a patient of Dr. Dobbs. He seen for the following urologic conditions - elevated PSA Telemedicine Evaluation 15 min Consultation [employer] Had initial evaluation with elevated PSA and suspected prostatitis PSA remains high despite treatment Recommend prostate biopsy Instructed to hold Coumadin for 2 days prior to biopsy Elevated PSA PSA 09/05 31, 12/05 33 Setting of diabetes Prostate boggy may have component of prostatitis, small right base nodule PFSH Medical History Hypothyroidism Afib Acquired hypothyroidism Chronic kidney disease, stage III (moderate) Atrial fibrillation Antecollis Poor balance Subdural fluid collection Cervicogenic headache 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 Sister Ovarian cancer Social History Household Members: Spouse Housing: Apartment Are you a primary resident care associate to a significant other at home: No Do you presently have visiting nurse or other home services: Yes ([facility] Alcohol intake: never Patient Tobacco Use Status: Never used Tobacco e-Cigarette/Vaping Use: Never Used Second Hand Smoke Exposure: No service: No Current occupational status: retired Cognitive needs: No Hearing needs: No Vision needs: No Review of Systems Const All systems reviewed & are unremarkable except as noted in HPI and below Reports no additional complaints Resp Reports no additional complaints GI Reports no additional complaints Reports as per HPI [facility] Reports no additional complaints Physical Exam Telemedicine evaluation Appropriate responses Regular breathing rate and rhythm HEENT Head: Yes normal to inspection Ears: hearing grossly normal bilaterally Eyes General: appearance normal, both eyes and all related structures Neck Neck: Yes normal visual inspection Chest Chest palpation & inspection: normal inspection of the chest Resp Effort & Inspection: normal respiratory effort and able to speak in complete sentences Telehealth Telehealth Telehealth Platform: [employer] Location of provider rendering services: practice address Location of patient: address on file Patient Identification confirmed using: Name, : Yes Telehealth method: video Patient verbally consented to treatment: Yes Patient verbally consented to billing insurance company: Yes Patient informed of any privacy concerns related to visit: Yes Minutes spent on Phone/Video with Pt.: 15 Assessment & Plan Assessment & Plan (1) PSA elevation: Code(s): R97.20 - Elevated prostate specific antigen [PSA] Category: Medical Plan Risks and benefits regarding trans rectal ultrasound with prostate biopsy were discussed. Options of continued surveillance, no treatment and biopsy were offered. The risks include but are not limited to, urinary tract infection, sepsis, difficulty urinating, bleeding into the rectum or bladder that requires intervention and transfusion,and failure to diagnose prostate cancer. The patient understands the options and the risks involved. They wish to proceed. Printed information was provided to ensure he remains off anticoagulation for the appropriate length of time. He may require cardiology or PCP clearance. An antibiotic will be administered prior to, and following the procedure Medications: New cefuroxime axetil Take day before, day of and day after biopsy 250 mg PO DAILY 3 tabs 0RF 3 days R97.20 - Elevated prostate specific antigen [PSA] Patient Instructions: This note is constructed using voice recognition software. While every effort has been made to ensure accuracy assistant tennis professional errors may have been included. Imaging studies, laboratory and physical exam results were discussed and reviewed in detail. No major barriers to patient understanding were identified. An opportunity to ask questions regarding the treatment plan was provided. All questions were answered. The patient expressed understanding and agreement with the above treatment plan. The patient is aware they should contact our office by phone for worsening of their current condition or the appearance of new urologic symptoms. Compliance is encouraged with any medications and followup testing that is ordered. It is a privilege to participate in the urologic care of your patient. If you have any questions or concerns regarding treatment for the above conditions, or other urologic issues, please do not hesitate to contact me. The office telephone contact is [phone]. Sincerely, Dr Eh Kelly MD, [facility] - Urology Compassionate Specialist Care for the Genitourinary System Coding Level of Care Code Tele Est Pt Level 4 (11034) Diagnoses PSA elevation R97.20
--- OUTSIDE RECORDS SUMMARY | 2024-12-17 14:52 | XMS_ITS | Clinical Summary ---
Author Organization [facility] Facility Address [address] [address] Care Team Providers Care Rip Machine Operator Name Role Phone Susan Dobbs MD Primary Care Provider [phone] Allergies Active Allergy Reactions Criticality Noted Date [...] patient's age to complete this topic [place] [address] Care Teams Rip Machine Operator Relationship Specialty Start Date End Date Susan Dobbs MD [facility] [place] [address] [place], [place] PCP - General Internal Medicine 01/22/23
== END 2024-12-17 14:37 | disposition home or self-care (01) ==
LOC: HO.HUSH 14:25
PROVIDERS: PCP Internal Medicine; Visit Provider Urology
DX: R97.20 Elevated prostate specific antigen [PSA] (principal)
CPT/HCPCS: 99214

== ENCOUNTER 2024-12-25 07:55 | Outpatient (REF) | payer MEDICARE, SELFPAY ==
--- OUTSIDE RECORDS SUMMARY | 2024-12-25 07:59 | XMS_ITS | Clinical Summary ---
Author Organization [facility] Facility Address [address] [address] Care Team Providers Care Cold Type Composing Machine Operator Name Role Phone Susan Dobbs MD Primary Care Provider [phone] Allergies Active Allergy Reactions Criticality Noted Date [...] patient's age to complete this topic [place] [address] [address] Care Teams Cold Type Composing Machine Operator Relationship Specialty Start Date End Date Susan Dobbs MD [facility] [place] [address] [place], [place] PCP - General Internal Medicine 01/22/23
[2024-12-25] MEDS: Lidocaine HCl 1 % MPF 5 ML VIAL 10 ML SUBCUT (08:43)
--- NOTE | 2024-12-25 09:04 | P.OP_ITS ---
Operative Note Operative Note Date of Service: 12/25/24 Narrative: Preoperative diagnosis: Elevated PSA Postoperative diagnosis: Elevated PSA Procedure: 1. transrectal ultrasound measurement of prostate 2. transrectal ultrasound-guided pudendal nerve block 3. transrectal ultrasound-guided prostate biopsy 12 core Surgeon: Dr. Eh Kelly Anesthetic: 10cc 1% lidocaine Indications for procedure: Elevated PSA 33, prostatitis Counselling: Technical aspects, risks and benefits of proposed procedure were discussed in full. All questions have been answered, written consent has been obtained and patient agrees to proceed. Procedure: The patient was brought into the procedure area and placed in a left lateral decubitus position. Patient identity confirmed. Perioperative antibiotics confirmed. Safety pause time out performed. CAITLIN was performed to dilate rectal sphincter Iodine 10cc with 60 cc gel was placed per rectum to reduce infection risk using a catheter tip syringe. 8 Hz Paul rectal end-fire ultrasound probe was placed transrectally without difficulty. The prostate was visualized. Seminal vesicles were normal. Prostate margins were clearly demarcated. Bladder was seen superiorly. No cystic structures were noted scattered calcifications were noted at the surgical margin The prostate was otherwise homogeneous in nature The prostate was measured in 3 dimensions Prostatic Width: 5.6 cm Prostatic Height: 3.8 cm Urethral Length: 4.1 cm Total volume equals : 50 ml An ultrasound-guided pudendal nerve block was performed using a 22 gauge spinal needle in the sagittal plane. 4 cc of 1% lidocaine placed at the junction of each seminal vesicle and 2 cc placed at the apex of the prostate. A 12 core biopsy was performed with 6 cores each side using an 18 gauge prostate biopsy gun. Two cores each were taken at the prostate apex, mid and base on each side. Cores were spaced between lateral and medial aspects. Each core was examined as placed on specimen foam as part of quality assurance project manager to ensure a minimum 1 cm of length and minimal discontinuity. He tolerated the procedure well with minimal rectal bleeding. Blood pressure remained stable following procedure. He was able to ambulate to bathroom after 5 minutes. Printed instructions regarding antibiotic use and common adverse events from the procedure such as low-grade temperature, potential infection and bleeding were given. He understands to call the office or go to an emergency room should any of these events arise. Pathology: 12 core prostate biopsy. CPT code 64627: Transrectal ultrasound; this is a diagnostic test for evaluation of the prostate and surrounding structures, looking for abnormalities or suspicious areas worrisome for cancer CPT code 83251: Biopsy, prostate; needle or punch, single or multiple, any appr [facility] CPT code 45978: Ultrasonic guidance for needle placement (eg, biopsy, aspiration, injection, localization device), imaging supervision and interpretation
== END 2024-12-25 07:56 | disposition home or self-care (01) ==
LOC: HO.US 07:55
PROVIDERS: PCP Internal Medicine; Visit Provider Urology
DX: R97.20 Elevated prostate specific antigen [PSA] (principal)
CPT/HCPCS: 55700; 76942; 88305; J2003

== ENCOUNTER → 2024-12-25 07:55 | Outpatient (BNV) | payer MEDICARE, SELFPAY | PROVIDERS: PCP Internal Medicine; Visit Provider Urology | DX: R97.20 Elevated prostate specific antigen [PSA] (principal) | CPT/HCPCS: 55700; 76872; 76942 ==

== ENCOUNTER 2024-12-26 14:14 | Outpatient (AMB) | payer MEDICARE, SELFPAY ==
[2024-12-26 14:16] VITALS: BP 110/80; PULSE 101; O2SAT 96; BMI 25.5
--- NOTE | 2024-12-26 14:16 | A.OFFPC_ITS ---
Vital Signs 12/26/24 14:16 Height 5 ft 7 in Weight 163 lb 2 oz BMI 25.5 BP 110/80 Blood Pressure Location Lt brachial Position Sitting Pulse 101 H Pulse Source Pulse Oximeter Pulse Oximetry (%) 96 Oxygen Delivery Method Room Air Intake Visit Reasons: [facility] 12/10 respiratory problems Clinical Technologist Required: No Accompanied by: Self / Same As Patient Allergies No Known Allergies Allergy (Verified 12/26/24 14:17) Tobacco use date assessed: 12/26/24 Fall risk assessment: No Falls in past year Last assessed Fall Risk: 12/26/24 Dental Screening Dental Screen Date: 12/26/24 Did you have a dental visit in the last 12 months?: No Did you have a dental problem in the last 6 months where you did not have access to dental care?: No Was dental information given to patient?: No HPI HPI Comments History of Present Illness Details 69 y/o Male patient who presents to the clinic today for HDF. He was admitted at [facility] on 12/09 - 12/10 for an evaluation and treatment of Acute on chronic Heart failure with reduce EF. The Echo showed EF of 15 to 20% with abnormal Septal motion consistent with LBBB/RV Pacemaker. Today denies CP, Whezing, SOB, Headaches or dizziness. No further concerns. [facility] Medical History Hypothyroidism Afib Acquired hypothyroidism Chronic kidney disease, stage III (moderate) Atrial fibrillation Antecollis Poor balance Subdural fluid collection Cervicogenic headache 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 Sister Ovarian cancer Social History Household Members: Spouse Housing: Apartment Are you a primary direct care counselor to a significant other at home: No Do you presently have visiting nurse or other home services: Yes ([facility] Alcohol intake: never Patient Tobacco Use Status: Never used Tobacco e-Cigarette/Vaping Use: Never Used Second Hand Smoke Exposure: No service: No Current occupational status: retired Cognitive needs: No Hearing needs: No Vision needs: No Questionnaire PHQ-9 Over the last 2 weeks, how often have you been bothered by any of the following problems? 1. Little interest or pleasure in doing things: not at all 2. Feeling down, depressed, or hopeless: not at all 3. Trouble falling or staying asleep, or sleeping too much: not at all 4. Feeling tired or having little energy: not at all 5. Poor appetite or overeating: not at all 6. Feeling bad about yourself - or that you are a failure or have let yourself or your family down: not at all 7. Trouble concentrating on things, such as reading the newspaper or watching television: not at all 8. Moving or speaking so slowly that other people could have noticed. Or the opposite - being so fidgety or restless that you have been moving around a lot more than usual: not at all 9. Thoughts that you would be better off or of hurting yourself in some way: not at all Total score: 0 Source: Developed by Drs. Lukas Esquivel, Elizabeth Cortes, Severiano Feliciano and colleagues, with an educational yang from [employer]. Thrive Questionnaire Date Thrive assessed: 12/26/24 I am a: Patient What is your living situation today?: I have a steady place to live Within the past 12 months, did the food you bought not last and you didn't have the money to get more?: Never true Within the past 12 months, did you worry whether your food would run out before you got money to buy more?: Never true Do you have trouble paying for medicines?: No Do you have trouble getting transportation to medical appointments?: No Do you have trouble paying your heating and electricity bill?: No Do you have trouble taking care of your child, family member or friend?: No Do you have trouble with day-to-day activities such as bathing, preparing meals, shopping, managing finances, etc.?: No Are you currently unemployed and looking for a job?: No Are you interested in more education?: No Please select the resources that you would like help with: None Currently or been in a relationship where the following occur: No concerns reported THRIVE Score: 0 AUDIT C Alcohol Use Questionnaire (AUDIT-C) 1. How often do you have a drink containing alcohol?: Never 3. How often do you have six or more drinks on one occasion?: Never Total Score: 0 HODA-7 AMB Questionnaire HODA-7 Date HODA - 7 assessed: 12/26/24 Feeling nervous, anxious, or on edge: 0 = Not at all Not being able to stop or control worryin = Not at all Worrying too much about different things: 0 = Not at all Trouble relaxin = Not at all Being so restless that it is hard to sit still: 0 = Not at all Becoming easily annoyed or irritable: 0 = Not at all Feeling afraid as if something awful might happen: 0 = Not at all Total HODA-7 score (0-4 normal; 5-9 mild; 10-14 moderate; 15-21 severe): 0 Source: Developed by Drs. Lukas Esquivel, Elizabeth Cortes, Severiano Feliciano and colleagues, with an educational yang from [employer]. Review of Systems Const All systems reviewed & are unremarkable except as noted in HPI and below Physical exam (Primary Care) Vital Signs: Last Vital Signs Pulse 101 H 12/26/24 14:16 BP 110/80 12/26/24 14:16 Pulse Ox 96 12/26/24 14:16 Oxygen Delivery Method Room Air 12/26/24 14:16 BMI result Body Mass Index 25.5 Tobacco/Smoking Status: Tobacco use Status Tobacco use date assessed 12/26/24 12/26/24 14:21 Patient Tobacco Use Status Never used Tobacco 12/26/24 14:21 e-Cigarette/Vaping Use Never Used 12/26/24 14:21 PHQ-9: PHQ-9 Score PHQ-9: Total score 0 12/26/24 14:21 Thrive Assessment: Date of Thrive Assessment Date Thrive assessed 12/26/24 12/26/24 14:21 Currently or been in a relationship where the following occur: No concerns reported Const General: no acute distress Orientation/consciousness: patient oriented x3 Resp Effort & Inspection: normal respiratory effort Auscultation: clear to auscultation bilaterally Cardio Heart sounds: S1 normal heart sound present and S2 normal heart sound present Neuro General: patient oriented x3, gait normal and moves all extremities Psych Speech and movement: Normal speech and movement present Coding Level of Care Code Est Pt Level 4 (41894) Diagnoses Acute on chronic congestive heart failure, unspecified heart failure type I50.9 Heart failure type: unspecified Heart failure chronicity: acute on chronic Time Spent (min) 20 Assessment & Plan Assessment & Plan (1) CHF (congestive heart failure): Code(s): I50.9 - Heart failure, unspecified Category: Medical Qualifiers: Heart failure type: unspecified Heart failure chronicity: acute on chronic Qualified Code(s): I50.9 - Heart failure, unspecified Plan: Stable Continue on current regiment F/U with Cardiology.
--- OUTSIDE RECORDS SUMMARY | 2024-12-26 14:17 | XMS_ITS | Clinical Summary ---
Author Organization [facility] Facility Address [address] [address] Care Team Providers Care Joint Cutter Machine Name Role Phone Susan Dobbs MD Primary Care Provider [phone] Allergies Active Allergy Reactions Criticality Noted Date [...] patient's age to complete this topic [place] [address] Care Teams Joint Cutter Machine Relationship Specialty Start Date End Date Susan Dobbs MD [facility] IN [address] [place], [place] PCP - General Internal Medicine 01/22/23
== END 2024-12-26 14:50 | disposition home or self-care (01) ==
LOC: HO.HMCH 14:15
PROVIDERS: PCP Internal Medicine; Visit Provider Nurse Practitioner Family
DX: I50.9 Heart failure, unspecified (principal)

== ENCOUNTER → 2024-12-26 14:14 | Outpatient (BNVA) | payer MEDICARE, SELFPAY | PROVIDERS: PCP Internal Medicine; Visit Provider Nurse Practitioner Family | DX: I50.9 Heart failure, unspecified (principal); Z95.810 Presence of automatic (implantable) cardiac defibrillator | CPT/HCPCS: 96127; 99212 ==

== ENCOUNTER 2025-01-08 13:31 | Outpatient (AMB) | payer MEDICARE, SELFPAY ==
--- NOTE | 2025-01-08 13:31 | A.OFFVIS_ITS ---
Intake Visit Reasons: Prostate biopsy results Intake Note: Patient is present for Prostate biopsy results Labs done:none Urology Medication:lefuroxime axetil Antibiotic Allergy:NONE Blood Thinner:WARFARIN Steel Sampler Required: No Accompanied by: Self / Same As Patient Allergies No Known Allergies Allergy (Verified 01/08/25 13:32) HPI Comments Details: Markel is a pleasant male. He is a patient of Dr. Dobbs. He seen for the following urologic conditions - elevated PSA Telemedicine Evaluation 15 min Consultation [employer] Prostate biopsy follow-up Recommend prostate MRI, Prolaris TRUS 50 g Initial PSA 33 PT1c Multifocal, low volume, Grade Group 1 - Prostate Cancer - 01/05 Histologic type: Acinar adenocarcinoma Histologic grade: Leonora score: 3+3=6 (B,G,I,K) Grade group: 1 Number cores positive: 4 Total number of cores: 12 % of tissue involved: See above for details Periprostatic fat inv.: Not identified Seminal vesicle inv.: Not identified Perineural inv.: Present LVI: Not identified Elevated PSA PSA 09/05 31, 12/05 33 Setting of diabetes Prostate boggy may have component of prostatitis, small right base nodule PFSH Medical History Hypothyroidism Afib Acquired hypothyroidism Chronic kidney disease, stage III (moderate) Atrial fibrillation Antecollis Poor balance Subdural fluid collection Cervicogenic headache 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 Sister Ovarian cancer Social History Household Members: Spouse Housing: Apartment Are you a primary clinical care coordinator to a significant other at home: No Do you presently have visiting nurse or other home services: Yes ([facility] ([employer])) Alcohol intake: never Patient Tobacco Use Status: Never used Tobacco e-Cigarette/Vaping Use: Never Used Second Hand Smoke Exposure: No service: No Current occupational status: retired Cognitive needs: No Hearing needs: No Vision needs: No Review of Systems Const All systems reviewed & are unremarkable except as noted in HPI and below Reports no additional complaints Resp Reports no additional complaints GI Reports no additional complaints Reports as per HPI Musc Reports no additional complaints Physical Exam Telemedicine evaluation Appropriate responses Regular breathing rate and rhythm HEENT Head: Yes normal to inspection Ears: hearing grossly normal bilaterally Eyes General: appearance normal, both eyes and all related structures Neck Neck: Yes normal visual inspection Chest Chest palpation & inspection: normal inspection of the chest Resp Effort & Inspection: normal respiratory effort and able to speak in complete sentences Telehealth Telehealth Telehealth Platform: [employer] Location of provider rendering services: practice address Location of patient: address on file Patient Identification confirmed using: Name, : Yes Telehealth method: video Patient verbally consented to treatment: Yes Patient verbally consented to billing insurance company: Yes Patient informed of any privacy concerns related to visit: Yes Assessment & Plan Assessment & Plan (1) Prostate cancer: Comment: Biopsy December 2023 Dr. Kelly Code(s): C61 - Malignant neoplasm of prostate Category: Medical Plan Two week follow-up MRI Four week follow-up office Orders: Orders MR Prostate wo/w con 2 Weeks C61 - Malignant neoplasm of prostate Patient Instructions: This note is constructed using voice recognition software. While every effort has been made to ensure accuracy tractor mechanic helper errors may have been included. Imaging studies, laboratory and physical exam results were discussed and reviewed in detail. No major barriers to patient understanding were identified. An opportunity to ask questions regarding the treatment plan was provided. All questions were answered. The patient expressed understanding and agreement with the above treatment plan. The patient is aware they should contact our office by phone for worsening of their current condition or the appearance of new urologic symptoms. Compliance is encouraged with any medications and followup testing that is ordered. It is a privilege to participate in the urologic care of your patient. If you have any questions or concerns regarding treatment for the above conditions, or other urologic issues, please do not hesitate to contact me. The office telephone contact is [phone]. Sincerely, Dr Eh Kelly MD, [facility] - Urology Compassionate Specialist Care for the Genitourinary System Coding Level of Care Code Tele Est Pt Level 4 (65615) Complex EM visit Add On G2211 Diagnoses Prostate cancer C61
--- OUTSIDE RECORDS SUMMARY | 2025-01-08 14:14 | XMS_ITS | Clinical Summary ---
Author Organization [facility] Facility Address [address] [address] Care Team Providers Care Prepress Supervisor Name Role Phone Susan Dobbs MD Primary Care Provider [phone] Allergies Active Allergy Reactions Criticality Noted Date [...] patient's age to complete this topic [place] [address] [place] [address] Care Teams Prepress Supervisor Relationship Specialty Start Date End Date Susan Dobbs MD [facility] [place] [address] [place], [place] PCP - General Internal Medicine 01/22/23
== END 2025-01-08 14:16 | disposition home or self-care (01) ==
LOC: HO.HUSH 13:31
PROVIDERS: PCP Internal Medicine; Visit Provider Urology
DX: C61 Malignant neoplasm of prostate (principal)
CPT/HCPCS: 99214; G2211

== ENCOUNTER 2025-03-19 15:56 | Outpatient (AMB) | payer MEDICARE, SELFPAY ==
[2025-03-19 15:58] VITALS: BP 100/78; PULSE 68; TEMP 36.3; O2SAT 98; BMI 24.8
--- NOTE | 2025-03-19 15:58 | A.OFFPC_ITS ---
Vital Signs 03/19/25 15:58 Height 5 ft 7 in Weight 158 lb 2 oz BMI 24.8 BP 100/78 Blood Pressure Location Lt brachial Position Sitting Pulse 68 Pulse Source Pulse Oximeter Temp 97.3 F Temp Source Temporal Artery Scan Pulse Oximetry (%) 98 Oxygen Delivery Method Room Air Intake Visit Reasons: CHF, A fib, hypothyroid Intake Note: Pt states he doesn't feel well and would like to test for flu and also requested for a flu shot. 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 Accompanied by: Self / Same As Patient Allergies No Known Allergies Allergy (Verified 03/19/25 15:59) Medication List - Last Reconciled 03/19/25 by Susan Dobbs MD dapagliflozin propanediol (Farxiga) 10 mg PO DAILY fluoxetine 40 mg PO DAILY fluticasone propion-salmeterol 230-21 mcg/actuation (Advair HFA) 2 puffs inhalation BID levothyroxine 88 mcg PO DAILY 90 days lisinopril 2.5 mg PO DAILY meclizine 25 mg PO DAILY PRN 30 days metoprolol succinate ER 25 mg PO DAILY ondansetron HCl 4 mg PO Q8H PRN torsemide 20 mg PO BID warfarin 5 mg (2 x 2.5 mg) PO DAILY 90 days Tobacco use date assessed: 12/26/24 Fall risk assessment: No Falls in past year Last assessed Fall Risk: 12/26/24 Dental Screening Dental Screen Date: 12/26/24 Did you have a dental visit in the last 12 months?: No Did you have a dental problem in the last 6 months where you did not have access to dental care?: No Was dental information given to patient?: No HPI CHF, A fib, hypothyroid HPI Details myalgia 2 days , sob, coughing, no sore throat, non productive , PFSH Medical History Hypothyroidism Afib Acquired hypothyroidism Chronic kidney disease, stage III (moderate) Atrial fibrillation Antecollis Poor balance Subdural fluid collection Cervicogenic headache 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 Sister Ovarian cancer Social History Household Members: Spouse Housing: Apartment Are you a primary career developer to a significant other at home: No Do you presently have visiting nurse or other home services: Yes ([facility] Alcohol intake: never Patient Tobacco Use Status: Never used Tobacco e-Cigarette/Vaping Use: Never Used Second Hand Smoke Exposure: No service: No Current occupational status: retired Cognitive needs: No Hearing needs: No Vision needs: No Questionnaire PHQ-9 Over the last 2 weeks, how often have you been bothered by any of the following problems? 1. Little interest or pleasure in doing things: not at all 2. Feeling down, depressed, or hopeless: not at all 3. Trouble falling or staying asleep, or sleeping too much: not at all 4. Feeling tired or having little energy: not at all 5. Poor appetite or overeating: not at all 6. Feeling bad about yourself - or that you are a failure or have let yourself or your family down: not at all 7. Trouble concentrating on things, such as reading the newspaper or watching television: not at all 8. Moving or speaking so slowly that other people could have noticed. Or the opposite - being so fidgety or restless that you have been moving around a lot more than usual: not at all 9. Thoughts that you would be better off or of hurting yourself in some way: not at all Total score: 0 Source: Developed by Drs. Lukas Esquivel, Elizabeth Cortes, Severiano Feliciano and colleagues, with an educational yang from [employer]. Thrive Questionnaire Date Thrive assessed: 12/01/24 I am a: Patient What is your living situation today?: I have a steady place to live Within the past 12 months, did the food you bought not last and you didn't have the money to get more?: Never true Within the past 12 months, did you worry whether your food would run out before you got money to buy more?: Never true Do you have trouble paying for medicines?: No Do you have trouble getting transportation to medical appointments?: No Do you have trouble paying your heating and electricity bill?: No Do you have trouble taking care of your child, family member or friend?: No Do you have trouble with day-to-day activities such as bathing, preparing meals, shopping, managing finances, etc.?: No Are you currently unemployed and looking for a job?: No Are you interested in more education?: No Please select the resources that you would like help with: None Currently or been in a relationship where the following occur: No concerns reported THRIVE Score: 0 AUDIT C Alcohol Use Questionnaire (AUDIT-C) 1. How often do you have a drink containing alcohol?: Never 3. How often do you have six or more drinks on one occasion?: Never Total Score: 0 HODA-7 AMB Questionnaire HODA-7 Date HODA - 7 assessed: 12/26/24 Feeling nervous, anxious, or on edge: 0 = Not at all Not being able to stop or control worryin = Not at all Worrying too much about different things: 0 = Not at all Trouble relaxin = Not at all Being so restless that it is hard to sit still: 0 = Not at all Becoming easily annoyed or irritable: 0 = Not at all Feeling afraid as if something awful might happen: 0 = Not at all Total HODA-7 score (0-4 normal; 5-9 mild; 10-14 moderate; 15-21 severe): 0 Source: Developed by Drs. Lukas Esquivel, Elizabeth Cortes, Severiano Feliciano and colleagues, with an educational yang from [employer]. Physical exam (Primary Care) Vital Signs: Last Vital Signs Temp 97.3 F 03/19/25 15:58 Pulse 68 03/19/25 15:58 BP 100/78 03/19/25 15:58 Pulse Ox 98 03/19/25 15:58 Oxygen Delivery Method Room Air 03/19/25 15:58 BMI result Body Mass Index 24.8 Tobacco/Smoking Status: Tobacco use Status Tobacco use date assessed 12/26/24 03/19/25 16:01 Patient Tobacco Use Status Never used Tobacco 03/19/25 16:01 e-Cigarette/Vaping Use Never Used 03/19/25 16:01 PHQ-9: PHQ-9 Score PHQ-9: Total score 0 03/19/25 16:29 Thrive Assessment: Date of Thrive Assessment Date Thrive assessed 12/01/24 03/19/25 16:01 Currently or been in a relationship where the following occur: No concerns reported Const General: alert; No acute distress Eyes Conjunctivae: conjunctivae normal Resp Auscultation: clear to auscultation bilaterally Cardio Rate: regular rate Rhythm: regular rhythm GI Inspection: Yes normal to inspection Extrem General: Yes normal to inspection and No edema Office Procedures Flu Questionnaire Does the patient have a severe egg allergy?: No Does the patient have severe life threatening allergies?: No Does the patient have a fever or illness today?: No Has the patient ever had Guillain-[place] Syndrome?: No Has the patient ever had any past reaction to a flu shot?: No Immunizations Fluarix [id number] (PF) 45 mcg (15 mcg x 3)/0.5 mL IM syringe Performing Provider: Susan Dobbs MD [facility] Administered by: Xena Martel CMA on 03/19/25 16:29 Dose Route Admin Location Dispensed Lot Number Expiration Date [facility] Account Service Representative 0.5 mL IM Left Deltoid 0.5 mL [id number] 11/10/25 [id number] [employer] VIS Given Date VIS Provided VIS Publication Date 03/19/25 Single Vaccine 24 Eligibility Eligibility Date Funding Source Not [facility] Eligible 03/19/25 Private Coding Level of Care Code Est Pt Level 4 (59946) Complex EM visit Add On G2211 Diagnoses Dilated cardiomyopathy I42.0 Coronary artery disease involving [place] coronary artery of [place] heart without angina pectoris I25.10 Coronary Disease-Associated Artery/Lesion type: [place] artery [place] vs. transplanted heart: [place] heart Associated angina: without angina Acute on chronic congestive heart failure, unspecified heart failure type I50.9 Heart failure chronicity: acute on chronic Heart failure type: unspecified ICD (implantable cardioverter-defibrillator) in place Z95.810 Persistent atrial fibrillation I48.19 Atrial fibrillation type: persistent (not longstanding) Acquired hypothyroidism E03.9 Stage 3 chronic kidney disease, unspecified whether stage 3a or 3b CKD N18.30 Chronic kidney disease stage 3 subtype: unspecified whether 3a or 3b Prostate cancer C61 Cough R05.9 Assessment & Plan Assessment & Plan (1) Dilated cardiomyopathy: Comment: Echocardiogram April 2023 ejection fraction 10%[facility], September 2024 echocardiogram 15 20% Code(s): I42.0 - Dilated cardiomyopathy Category: Medical Plan: Continue to follow-up with cardiology. On torsemide 20 mg twice a day metoprolol 25 mg once a day lisinopril 2.5 mg once a day Farxiga 10 mg once a day (2) CAD (coronary artery disease): Comment: Dr. Quezada Code(s): I25.10 - Atherosclerotic heart disease of [place] coronary artery without angina pectoris Category: Medical Qualifiers: Coronary Disease-Associated Artery/Lesion type: [place] artery [place] vs. transplanted heart: [place] heart Associated angina: without angina Qualified Code(s): I25.10 - Atherosclerotic heart disease of [place] coronary artery without angina pectoris Plan: Control the cholesterol, weight, blood pressure, (3) CHF (congestive heart failure): Code(s): I50.9 - Heart failure, unspecified Category: Medical Qualifiers: Heart failure chronicity: acute on chronic Heart failure type: unspecified Qualified Code(s): I50.9 - Heart failure, unspecified Plan: Patient on diuretic, weigh daily record (4) ICD (implantable cardioverter-defibrillator) in place: Code(s): Z95.810 - Presence of automatic (implantable) cardiac defibrillator Category: Medical Plan: Continue to follow up with Cardiology (5) Atrial fibrillation: Comment: Dr. Quezada Code(s): I48.91 - Unspecified atrial fibrillation Category: Medical Qualifiers: Atrial fibrillation type: persistent (not longstanding) Qualified Code(s): I48.19 - Other persistent atrial fibrillation Plan: Patient on Coumadin (6) Acquired hypothyroidism: Code(s): E03.9 - Hypothyroidism, unspecified Category: Medical Plan: Continue with thyroid medication (7) CKD (chronic kidney disease) stage 3, GFR 30-59 ml/min: Code(s): N18.30 - Chronic kidney disease, stage 3 unspecified Category: Medical Qualifiers: Chronic kidney disease stage 3 subtype: unspecified whether 3a or 3b Qualified Code(s): N18.30 - Chronic kidney disease, stage 3 unspecified Plan: Keep well hydrated avoid NSAIDs (8) Prostate cancer: Comment: Biopsy December 2023 Dr. Kelly Code(s): C61 - Malignant neoplasm of prostate Category: Medical Plan: Continue to follow-up with urology and planned MRI (9) Cough: Code(s): R05.9 - Cough, unspecified Category: Medical Plan History of Present Illness The patient is a 69-year-old male presenting for follow-up after a recent hospitalization. His extensive medical history includes coronary artery disease, dilated cardiomyopathy, congestive heart failure with an ejection fraction of 15.2% noted in December 2014, atrial fibrillation, and a history of syncope described as a mechanical fall without loss of consciousness. He has an implantable cardioverter-defibrillator (ICD). Other chronic conditions include chronic kidney disease, COPD, hypothyroidism, and depression. He is followed by urology for a prostate issue and is scheduled for an MRI. The patient has been hospitalized in the past for respiratory problems related to his congestive heart failure. Current medications reviewed include torsemide 20 mg twice daily, metoprolol, lisinopril 2.5 mg daily, Farxiga 10 mg daily, Advair, fluticasone, a thyroid medication, and Coumadin. He is not currently taking eplerenone, a medication which was noted on his hospital discharge information. Recently, the patient has experienced vomiting, increased shortness of breath, and a non-productive cough. He denies sore throat. Health Maintenance The patient agreed to receive the influenza vaccine, which will be administered today. Social History - Substance use: The patient denies any alcohol or soda consumption. - Diet: The patient reports drinking water. Review of Systems - Respiratory: Reports increased shortness of breath and cough. - Denies sputum production. - Gastrointestinal: Reports vomiting. - ENT: Denies sore throat. Physical Exam - ENT: Oropharynx is non-erythematous. - Cardiovascular: Auscultation reveals an irregularly irregular rhythm. - Respiratory: Posterior lung keys were auscultated. Results - Prior Imaging: An echocardiogram in December 2014 showed an ejection fraction of 15.2%. - Labs: The patient reports having recent blood work performed, but results are not available for review at this time. Plan Patient was informed and verbally consented to the use of an ambient scribe for clinic note documentation during this visit. 1. Acute Respiratory Symptoms The patient presents with new onset vomiting, increased shortness of breath, and cough. Differential diagnoses include a viral upper respiratory infection versus an exacerbation of underlying congestive heart failure or COPD. Plan includes ordering a respiratory panel for COVID-19, influenza, and RSV, a chest X-ray, and new blood work to be completed at the hospital. Will follow up with the patient by phone if any immediate concerns arise from the test results. 2. Congestive Heart Failure The patient's new dyspnea warrants evaluation for a possible CHF exacerbation. Continue current medications including torsemide 20 mg twice daily, metoprolol, lisinopril 2.5 mg once a day, and Farxiga 10 mg once a day. The patient is advised to continue daily weight monitoring and to remain well-hydrated. He should continue to follow up with his cardiology team. 3. Chronic Kidney Disease The patient is advised to avoid NSAIDs to protect renal function. 4. Atrial Fibrillation The patient will continue his current regimen of Coumadin and metoprolol. 5. Prostate Disorder The patient is being monitored by urology for an unspecified prostate condition. An MRI is pending, and the patient's concern regarding the MRI with his ICD was addressed, reassuring him that it is generally safe. Discussion Notes I reviewed the patient's recent hospital notes and confirmed his current medication regimen, noting that he is not taking eplerenone, which was listed in his discharge summary. We discussed his new symptoms of vomiting, increased shortness of breath, and cough. I explained the plan to order a respiratory pathogen panel for COVID, flu, and RSV, as well as a chest x-ray and blood work, to be done at the hospital. I addressed the patient's concern about having an MRI with his ICD, explaining that it should not be a problem. I emphasized the importance of staying well- hydrated, particularly while on diuretics. I recommended he get his flu shot today, and he agreed. I informed the patient that I would call him if any test results were immediately concerning. Patient Instructions - Please go to the main hospital building for testing, which will include a swab test for COVID, flu, and RSV, a chest x-ray, and blood work. - Continue taking all of your current medications as prescribed. - Weigh yourself every day. - Stay well-hydrated by drinking plenty of water. - Avoid taking any NSAID pain relievers like ibuprofen or naproxen. - You will get a flu shot today before you leave. - Continue your scheduled appointments with your heart doctor (tower operator) and urologist. - Please bring all of your medication bottles with you to your next appointment. - We will call you if there is anything concerning on your test results. Orders: Orders SARS-CoV2/FLU/RSV Today R05.9 - Cough, unspecified XR chest 2V Today R05.9 - Cough, unspecified NT Pro B Type Natriuretic Pept Today R05.9 - Cough, unspecified Influenza [id number] Immunization Today Z23 - Encounter for immunization
== END 2025-03-19 16:39 | disposition home or self-care (01) ==
LOC: HO.HMCH 15:57
PROVIDERS: PCP Internal Medicine; Visit Provider Internal Medicine
DX: I42.0 Dilated cardiomyopathy (principal); I50.9 Heart failure, unspecified; I48.19 Other persistent atrial fibrillation; N18.30 Chronic kidney disease, stage 3 unspecified; C61 Malignant neoplasm of prostate; I25.10 Atherosclerotic heart disease of native coronary artery without angina pectoris; Z95.810 Presence of automatic (implantable) cardiac defibrillator; E03.9 Hypothyroidism, unspecified; R05.9 Cough, unspecified; Z23 Encounter for immunization

== ENCOUNTER 2025-03-19 15:56 | Outpatient (REF) | payer MEDICARE, SELFPAY ==
--- NOTE | ~2025-03-19 | XR_ITS ---
EXAMINATION: XR CHEST CLINICAL INFORMATION: R05.9 - Cough, unspecified COMPARISON: None available. TECHNIQUE: 2 views of the chest were obtained. FINDINGS: 2-lead pacemaker is unchanged. There is no pneumothorax. Lungs are clear. Heart size is borderline enlarged. There is no sign of pleural effusion. Left pulmonary artery device is unchanged. XR/XR chest 2V IMPRESSION: No acute disease Borderline Cardiomegaly. Electronically signed by: Stevo Russell MD 03/19/2025 05:15 PM EST
== END 2025-03-19 15:57 | disposition home or self-care (01) ==
LOC: HO.XRAY 15:56
PROVIDERS: PCP Internal Medicine; Visit Provider Internal Medicine
DX: I25.10 Atherosclerotic heart disease of native coronary artery without angina pectoris (principal); I42.0 Dilated cardiomyopathy; I50.9 Heart failure, unspecified; I48.19 Other persistent atrial fibrillation; E03.9 Hypothyroidism, unspecified; N18.30 Chronic kidney disease, stage 3 unspecified; C61 Malignant neoplasm of prostate; R50.9 Fever, unspecified; Z23 Encounter for immunization; Z95.810 Presence of automatic (implantable) cardiac defibrillator
CPT/HCPCS: 71046; 90471; 90656; 96127; 99212

== ENCOUNTER → 2025-03-19 16:52 | Outpatient (BNV) | payer MEDICARE, SELFPAY | PROVIDERS: PCP Internal Medicine; Visit Provider Radiology Diagnostic Radiology | DX: I51.7 Cardiomegaly (principal) | CPT/HCPCS: 71046 ==

== ENCOUNTER 2025-03-20 10:44 | Outpatient (REF) | payer MEDICARE, SELFPAY ==
[2025-03-20 11:04] LABS: MANUAL DIFF FLAG NO
[2025-03-20 11:46] LABS: Hematocrit 44.9 % (42.0-52.0); Hemoglobin 15.0 g/dl (14.0-18.0); Imm Gran Abs Auto 0.02 X10*3/uL (0.00-0.03); Imm Gran Pct Auto 0.3 % (0.0-0.4); Lymphocytes Absolute Auto 1.3 X10*3/uL (1.2-4.9); Mean Corpuscular HGB Conc 33.4 g/dl (31.0-36.0); Mean Corpuscular Hemoglobin 29.8 pg (27.0-33.0); Mean Corpuscular Volume 89.3 fL (80.0-98.0); NRBC Abs Auto 0.000 X10*3/uL (0.0-0.012); NRBC Pct Auto 0.0 /100WBC (0.0-0.2); Platelet Count 174 X10*3/uL (160-400); Red Blood Count 5.03 X10*6/uL (4.60-5.80); White Blood Count 6.6 X10*3/uL (4.8-10.8)
[2025-03-20 12:16] LABS: Resp Syncy Virus RNA Qual PCR NEGATIVE (Negative); SARS COV2 PCR INHOUSE NEGATIVE (Negative)
[2025-03-20 12:32] LABS: PSA,Total (Free>4and<10) 31.14 ng/mL (0.00-4.00)
[2025-03-20 12:39] LABS: Alanine Aminotransferase 18 U/L (0-40); Albumin Level 5.0 g/dL (3.5-5.0); Alkaline Phosphatase 73 U/L (39-117); Anion Gap 13 (12-20); Aspartate Amino Transferase 45 U/L (5-37); Blood Urea Nitrogen 19 mg/dL (9-16); Calcium 9.6 mg/dL (8.4-10.2); Carbon Dioxide 31 mmol/L (22-29); Chloride 98 mmol/L (96-108); Cholesterol 178 mg/dL (<200); Estimated Glomerular Filt Rate 50; Ferritin 36 ng/mL (20-250); Free T4 (Free Thyroxine) 1.05 ng/dL (0.71-1.85); HDL Cholesterol 53 mg/dL (>40); Iron 116 mcg/dL (45-160); Magnesium 2.0 mg/dL (1.6-2.6); Percent Iron Saturation 36 % (15-50); Potassium 2.9 mmol/L (3.3-5.1); Sodium 139 mmol/L (135-145); Thyroid Stimulating Hormone 5.06 uIU/mL (0.32-4.0); Total Iron Binding Capacity 324 mcg/dL (228-428); Total Protein 8.2 g/dL (6.5-8.0); Triglycerides 110 mg/dL (<150); Unsaturated Iron Binding 208 ug/dL
--- OUTSIDE RECORDS SUMMARY | 2025-03-20 12:44 | XMS_ITS | Clinical Summary ---
Author Organization [facility] Facility Address [address] [address] Care Team Providers Care Surgical Supply Assistant Name Role Phone Susan Dobbs MD Primary Care Provider [phone] Allergies Active Allergy Reactions Criticality Noted Date [...] patient's age to complete this topic [place] [address] [place] [address] Care Teams Surgical Supply Assistant Relationship Specialty Start Date End Date Susan Dobbs MD [facility] [id number] [place], [place] PCP - General Internal Medicine 01/22/23
[2025-03-20 12:47] LABS: Folate 6.0 ng/mL (> or = 4.0); Vitamin B12 227 pg/mL (200-900)
== END 2025-03-20 10:45 | disposition home or self-care (01) ==
LOC: HO.LAB 10:44
PROVIDERS: PCP Internal Medicine; Visit Provider Internal Medicine
DX: Z12.5 Encounter for screening for malignant neoplasm of prostate (principal); N18.30 Chronic kidney disease, stage 3 unspecified; E03.9 Hypothyroidism, unspecified; K52.9 Noninfective gastroenteritis and colitis, unspecified; I42.0 Dilated cardiomyopathy; E78.00 Pure hypercholesterolemia, unspecified; R97.20 Elevated prostate specific antigen [PSA]; R05.9 Cough, unspecified
CPT/HCPCS: 80053; 80061; 82607; 82728; 82746; 83540; 83735; 83880; 84153; 84439; 84443; 85025; 87637

== ENCOUNTER 2025-04-24 15:25 | Outpatient (AMB) | payer MEDICARE, SELFPAY ==
[2025-04-24 15:45] VITALS: BP 100/72; PULSE 102; TEMP 36.2; O2SAT 97; BMI 24.5
--- NOTE | 2025-04-24 15:45 | A.OFFPC_ITS ---
Vital Signs 04/24/25 15:45 Height 5 ft 7 in Weight 156 lb 6 oz BMI 24.5 BP 100/72 Blood Pressure Location Lt brachial Position Sitting Pulse 102 H Pulse Source Pulse Oximeter Temp 97.1 F Temp Source Temporal Artery Scan Pulse Oximetry (%) 97 Oxygen Delivery Method Room Air Intake Visit Reasons: [facility] 04/09 Intake Note: Patient is here to follow-up after a visit the emergency department at [facility] on 04/09/25 Simulation Technician Required: No Preprint Analyst: Not Required per policy Accompanied by: Self / Same As Patient Allergies No Known Allergies Allergy (Verified 04/24/25 15:45) Medication List - Last Reconciled 04/24/25 by Jay Velasquez MD dapagliflozin propanediol (Farxiga) 10 mg PO DAILY fluoxetine 40 mg PO DAILY fluticasone propion-salmeterol 230-21 mcg/actuation (Advair HFA) 2 puffs inhalation BID levothyroxine 100 mcg PO DAILY 90 days lisinopril 2.5 mg PO DAILY meclizine 25 mg PO DAILY PRN 30 days metoprolol succinate ER 25 mg PO DAILY ondansetron HCl 4 mg PO Q8H PRN potassium chloride ER (Klor-Con M) 20 mEq PO BID torsemide 20 mg PO BID warfarin 5 mg (2 x 2.5 mg) PO DAILY 90 days Tobacco use date assessed: 04/24/25 Fall risk assessment: No Falls in past year Last assessed Fall Risk: 04/24/25 Dental Screening Dental Screen Date: 12/26/24 HPI HPI Comments History of Present Illness Details The patient is a 70 year old male with PMH of Hypothyroidism, HFrEF (EF 15%), s/p CardioMems plaqcement, A fib on warfarin, COPD, remote history of cardiac arrest s/p AICD presenting for a follow-up visit after a recent hospitalization for breathing problems. He reports he was hospitalized on April 09 and discharged the same day for shortness of breath. During the hospitalization, blood tests were performed and were normal. No medication changes were made at that time. The patient's breathing problem is ongoing and is most pronounced when he is lying down, at which point he has to gasp for air. He also experiences shortness of breath after walking for a while and needing to stop. Past medical history is significant for a cardiac arrest 19 years ago and an implanted defibrillator. The patient is on long-term anticoagulation and has weekly INR monitoring. His Torsemide dose was recently increased to 40 mg twice daily. His potassium was 2.9 in March. [facility] Medical History Hypothyroidism Afib Acquired hypothyroidism Chronic kidney disease, stage III (moderate) Atrial fibrillation Antecollis Poor balance Subdural fluid collection Cervicogenic headache 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 Sister Ovarian cancer Social History Household Members: Spouse Housing: Apartment Are you a primary children's zoo caretaker to a significant other at home: No Do you presently have visiting nurse or other home services: Yes ([facility] Alcohol intake: never Patient Tobacco Use Status: Never used Tobacco e-Cigarette/Vaping Use: Never Used Second Hand Smoke Exposure: No service: No Current occupational status: retired Cognitive needs: No Hearing needs: No Vision needs: No Questionnaire Thrive Questionnaire Date Thrive assessed: 12/01/24 I am a: Patient What is your living situation today?: I have a steady place to live Within the past 12 months, did the food you bought not last and you didn't have the money to get more?: Never true Within the past 12 months, did you worry whether your food would run out before you got money to buy more?: Never true Do you have trouble paying for medicines?: No Do you have trouble getting transportation to medical appointments?: No Do you have trouble paying your heating and electricity bill?: No Do you have trouble taking care of your child, family member or friend?: No Do you have trouble with day-to-day activities such as bathing, preparing meals, shopping, managing finances, etc.?: No Are you currently unemployed and looking for a job?: No Are you interested in more education?: No Please select the resources that you would like help with: None Currently or been in a relationship where the following occur: No concerns reported THRIVE Score: 0 HODA-7 AMB Questionnaire HODA-7 Date HODA - 7 assessed: 12/26/24 Source: Developed by Drs. Lukas Esquivel, Elizabeth Cortes, Severiano Feliciano and colleagues, with an educational yang from [employer]. Review of Systems Const Details: per HPI. Physical exam (Primary Care) Vital Signs: Last Vital Signs Temp 97.1 F 04/24/25 15:45 Pulse 102 H 04/24/25 15:45 BP 100/72 04/24/25 15:45 Pulse Ox 97 04/24/25 15:45 Oxygen Delivery Method Room Air 04/24/25 15:45 BMI result Body Mass Index 24.5 Tobacco/Smoking Status: Tobacco use Status Tobacco use date assessed 04/24/25 04/24/25 15:50 Patient Tobacco Use Status Never used Tobacco 04/24/25 15:50 e-Cigarette/Vaping Use Never Used 04/24/25 15:50 Thrive Assessment: Date of Thrive Assessment Date Thrive assessed 12/01/24 04/24/25 15:50 Currently or been in a relationship where the following occur: No concerns reported Const Other: Pertinent findings are in BOLD GENERAL APPEARANCE NAD, activity normal for age, well developed/ well nourished, no cyanosis, pallor, or diaphoresis. EYES lids/conjunctiva normal. EARS/NOSE/THROAT Mucous membranes moist, nares normal, lips/teeth normal uvula midline without oral pharyngeal erythema, exudate or swelling TMs normal bilaterally. No lymphangitis/lymphedema. HEAD/NECK normocephalic atraumatic, no facial trauma, neck is supple. RESPIRATORY respiratory effort normal, speaks in full sentences, no tripod position, no accessory muscle use. Lungs clear to auscultation without rhonchi, wheezes, rales CARDIAC Regular rate and rhythm, no edema. ABDOMINAL Soft, ND/NT. No evidence of fluid wave. No pulsatile masses on exam, rebound tenderness, Sotelo sign or pain over Mcburney's point. MUSCLES/EXTREMITIES No abnormal range of motion, no swelling. SKIN Warm, pink and dry. No rashes, dermatoses, petechiae or lesions. NEUROLOGICAL Speech is clear and appropriate. Normal level of consciousness. Gait and coordination are normal. 5/5 strength in all extremities. PSYCH Normal mood and affect. Judgement/competence is appropriate Coding Level of Care Code Est Pt Level 3 (23480) Diagnoses Hypokalemia E87.6 Dyspnea R06.00 Time Spent (min) 20 Assessment & Plan Assessment & Plan (1) Hypokalemia: Code(s): E87.6 - Hypokalemia Category: Medical Plan: Repeat labs ordered to check potassium while on increased dose Torsemide. (2) Dyspnea: Code(s): R06.00 - Dyspnea, unspecified Category: Medical Plan: - The patient was recently hospitalized for shortness of breath, which is worse on exertion and when lying flat. - Heart failure may be contributing to his symptoms. - The patient's torsemide was recently increased to 40 mg twice daily. - Advised to continue the new medication dose. - Ordered new lab work to monitor electrolytes, particularly potassium, which was 2.9 in March. Plan I discussed with the patient that his breathing issues could be related to his heart or potentially from cirrhosis. I advised him to continue his current medication regimen, including the increased dose of torsemide. I emphasized the need for repeat lab work today, specifically to recheck his potassium level, as it was low in March and his diuretic dose has since been increased. We also discussed his upcoming liver ultrasound and his follow-up appointment with Dr. Dobbs, which he should keep. I advised him to inquire about orders for his INR check when he goes to the lab. Orders: Orders Basic Metabolic Panel Today E87.6 - Hypokalemia Medications: Changed From torsemide 20 mg PO BID To torsemide 40 mg PO BID
== END 2025-04-24 16:37 | disposition home or self-care (01) ==
LOC: HO.HMCH 15:25
PROVIDERS: PCP Internal Medicine; Visit Provider Internal Medicine
DX: E87.6 Hypokalemia (principal); R06.00 Dyspnea, unspecified

== ENCOUNTER 2025-04-24 15:25 | Outpatient (REF) | payer MEDICARE, SELFPAY ==
[2025-04-24 17:47] LABS: Alanine Aminotransferase 16 U/L (0-40); Albumin Level 4.9 g/dL (3.5-5.0); Alkaline Phosphatase 68 U/L (39-117); Anion Gap 11 (12-20); Aspartate Amino Transferase 38 U/L (5-37); Blood Urea Nitrogen 14 mg/dL (9-16); Calcium 9.9 mg/dL (8.4-10.2); Carbon Dioxide 30 mmol/L (22-29); Chloride 101 mmol/L (96-108); Estimated Glomerular Filt Rate 53; Potassium 3.4 mmol/L (3.3-5.1); Sodium 139 mmol/L (135-145); Total Protein 7.9 g/dL (6.5-8.0)
[2025-04-24 17:55] LABS: Free T4 (Free Thyroxine) 1.15 ng/dL (0.71-1.85)
[2025-04-24 18:03] LABS: Thyroid Stimulating Hormone 1.12 uIU/mL (0.32-4.0)
[2025-04-25 07:22] LABS: HBS Num1 0.04 mIU/mL (0-7.99); HBc Num1 0.10 S/CO (0.00-0.79); HBsAGNum1 0.52 S/CO (0.00-0.99); Hepatitis B Surface Antigen Negative (Negative); ~HepC Num1 0.16 S/CO (0.00-0.79); ~Hepatitis B Surface Antibody NONREACTIVE (Nonreactive); ~Hepatitis C Antibody Nonreactive (Nonreactive)
== END 2025-04-24 15:26 | disposition home or self-care (01) ==
LOC: HO.LAB 15:25
PROVIDERS: Absent Provider Internal Medicine; PCP Internal Medicine; Visit Provider Internal Medicine
DX: E87.6 Hypokalemia (principal); R06.00 Dyspnea, unspecified; I48.91 Unspecified atrial fibrillation; E03.9 Hypothyroidism, unspecified; J44.9 Chronic obstructive pulmonary disease, unspecified; R79.89 Other specified abnormal findings of blood chemistry; I50.20 Unspecified systolic (congestive) heart failure; Z79.01 Long term (current) use of anticoagulants; Z79.899 Other long term (current) drug therapy; Z86.74 Personal history of sudden cardiac arrest; Z95.810 Presence of automatic (implantable) cardiac defibrillator
CPT/HCPCS: 36415; 80048; 80076; 84439; 84443; 86704; 86706; 86803; 87340; 99212